=== PATIENT | female | born 1970 | race Caucasian/White ===

== ENCOUNTER 2025-01-02 16:10 | Emergency (ER) | payer SELFPAY ==
--- OUTSIDE RECORDS SUMMARY | 2024-12-31 04:20 | XMS_ITS ---
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 tree, grass) shortness of breath Allergy Active vancomycin Vancomycin hives Drug Allergy Activ e REASON FOR VISIT WRU Medications Medication SIG (Take, Route, Frequency, Duration) Notes Start Date End Date Status Potassium Chloride Mignon ER 20 MEQ 1 tablet with food Orally Once a day Active Ipratropium-Albuterol 0.5-2.5 (3) MG/3ML 3 mL as needed Inhalation every 6 hrs Active Folic Acid 1 MG 1 tablet Orally Once a day Active Multi Vitamin - 1 tablet Orally Once a day; Duration: 30 days 12/31/2024 Active Melatonin 5 MG 1 tablet at bedtime as needed Orally Once a day; Duration: 30 days 12/31/2024 Active Vitamin D3 25 MCG (1000 UT) 1 capsule Or ally Once a day Active Docusate Sodium 100 MG 1 tablet as neede d Orally Once a day Active Furosemide 40 MG 1 tablet Orally Once a day Active Atorvastatin Calcium 40 MG 1 tablet Oral ly Once a day Active Escitalopram Oxalate 10 MG 1 tablet Oral ly Once a day; Duration: 30 days Active Keppra 500 MG 1 tablet Orally twic e a day Active Valsartan 80 MG 1 tablet Orally Once a day Active Montelukast Sodium 10 MG 1 tablet Orally Once a day Active Levothyroxine Sodium 100 MCG 1 capsule i n the morning on an empty stomach Orally Once a day Active Vitamin B12 1000 MCG 1 tablet Orally Onc e a day Active Budesonide-Formoterol Fumarate 160-4.5 MCG/ACT as directed Inhalation Active Albuterol Sulfate HFA 108 (90 Base) MCG/ACT 1 puff as needed Inhalation every 4 hrs Active Carvedilol 6.25 MG 1 tablet with food Orally Twice a day Active hydrOXYzine Pamoate 25 MG 1-2 capsules O rally every 4 hours as needed for anxiety, agitation, or inability to sleep. Do not give within 4 hours of diphenhydramine.; Duration: 30 days 12/31/2024 Active Calcium Carbonate 1250 (500 Ca) MG 1 tablet with food Orally Twice a day Active Social History Tobacco Use: Social History Observation Description Date Details (start date - stop date) Current Smoker NA - NA Tobacco Control (Standard) Question Answer Notes Tobacco use: Current smoker How often do you smoke cigarettes? Every day How many cigarettes a day do you smoke? 5 or les s Problems Problem Type SNOMED Code ICD Code Onset Dates Problem Status W/U Status Risk Notes Problem Physical examination, complete (99579551) Adult general medical examination (Z00.00) Active confirmed Problem Overweight (006587613) Over weight (E66.3) Active confirmed Problem Alcohol use disorder (6209005791) Alcohol use disorder (F10.99) Active confirmed Vital Signs Weight 201.2 lbs 12/31/2024 Height 63 in 12/31/2024 BMI 35.64 kg/m2 12/31/2024 Blood pressure systolic 132 mm Hg 01/01/20 25 Blood pressure diastolic 80 mm Hg 025 Heart Rate 70 /min 12/31/2024 Oximetry 96 % 12/31/2024 Temperature 98.1 degrees Fahrenheit 01/01/20 25 Respiratory Rate 20 /min 12/31/2024 Encounters Encounter Location Date Provider Diagnosis [facility] [address] [place] [address] 12/31/2024 Hany Elder Adult general medical examination Z00.00 ; Over weight E66.3 and Alcohol use disorder F10.99 Assessments Encounter Date Diagnosis (ICD Code) Assessment Notes Treatment Notes Treatment Clinical Notes Section Notes 12/31/2024 Adult general medical examination (ICD-10 - Z00.00) Admit to the [facility] and initiate standing/protocol orders: The following PRN medications may be self-administered by patients under the supervision of approved staff or administered by nursing staff: Ibuprofen 200mg, 2-4 tablets by mouth (with food) every 6 hours as needed for pain (unless on lithium). (NOTE: Ibuprofen and acetaminophen may be given together, but alternating is recommended for continuous pain relief. Guaifenesin 400 mg, 1 tablet by mouth every four hours as needed for cough and chest congestion (take with large glass of water). Loratadine 10 mg, 1 tablet by mouth daily as needed for allergies, watery itchy eyes, or sinus drainage. Throat Lozenges, up to 4 tablets by mouth every three to four hours as needed for sore throat. Antacid tablets, 1-2 tablets by mouth every one to two hours as needed for indigestion or heart burn. If the client prefers liquid, could use: Liquid Antacid : 1 ounce by mouth up to four times daily as needed for indigestion or heartburn Omeprazole 20mg, 1 capsule by mouth once daily for 14 days for frequent heartburn (frequent heartburn is more than 2 episodes per week). Do not exceed 14 days. Do not give to client already taking a proton-pump inhibitor: esomeprazole (Nexium), lansoprazole (Prevacid), pantoprazole (Protonix), rabeprazole (Aciphex), dexlansoprazole (Dexilant) Zofran ODT disintegrating (under the tongue) 4 mg, 1-2 tablets every 8 hours as needed for nausea/vomiting. Milk of Magnesia (MOM): 1 ounce (30 milliliters) by mouth every day as needed for constipation. OR Miralax: Stir and fully dissolve 17 grams (1 packet or 1 capful to measured line) in any 4 to 8 ounces of beverage then drink once daily for constipation. Do not use for more than 7 days. OR Docusate 100 mg, 1 capsule twice daily as needed for constipation Hydrocortisone 1% Cream, apply topically (to the skin) to the affected area up to three times daily as needed for itching or inflammation (avoid eyes and genitals). 2% Antifungal Cream, apply topically (to the skin) as directed as needed to affected areas for athlete's foot or jock itch. Triple Antibiotic Ointment, apply topically (to the skin) up to three times daily as needed for minor cuts and scrapes. Carmex or Chapstick, apply topically (to the skin) as needed for chapped lips and skin. Orajel, apply to affected areas as needed for mouth or tooth pain. Lubricating Eye Drops, instill 1-2 drops to the affected eye(s) as needed for dry/irritated eye(s). Hemorrhoid medications, apply to affected area according to directions as needed for hemorrhoid discomfort and itch. Nix (Permethrin 1%) cream 2 ounces, apply topically (to the skin) as directed as needed for head lice. Sunscreen 30 SPF, Apply to exposed skin prior to exposure to sun. The following PRN medications must be approved by nursing staff before self-administration by patients: Diphenhydramine 25 mg, 2 tablets by mouth every 4 hours as needed for allergic reaction or itchy rash. Caution: Do not use hydroxyzine within 4 hours of diphenhydramine and vice versa. Loperamide 2 mg capsules, may give two capsules by mouth for the initial dose, followed by one capsule up to 3 times a day as needed for diarrhea. Acetaminophen 500 mg, 1 - 2 tablets by mouth every six hours as needed for pain. (NOTE: Ibuprofen and acetaminophen may be given together, but alternating is recommended for continuous pain relief). Oxygen-May administer oxygen 2L/min via nasal cannula if O2 saturation is less than 92%, AND client complains of shortness of breath. Target O2 saturation is 94-98%. Caution: Remember too much oxygen can be detrimental to a client with COPD. Oxygen is a drug and should be delivered by trained staff only. Nurses may remove superficial splinters and sutures from skin lacerations. May apply gauze or bandages to any weeping wounds. Contact nursing if there is pus, a foul odor, increased pain/redness/swelli ng, or if soaking through bandages. 12/31/2024 Over weight (ICD-10 - E66.3) 12/31/2024 Alcohol use disorder (ICD-10 - F10.99) 12/31/2024 Other Continue treatment as recommended by [facility] staff. Encouraged patient to obtain routine medical care with patient's own primary care provider or establish as a patient at [facility] if no current primary care provider. Plan Of Treatment Medication Medication Name Sig Start Date Stop Date Notes Potassium Chloride Mignon ER 2 0 MEQ 1 tablet with food Orally Once a day Ipratropium-Albuterol 0.5-2. 5 (3) MG/3ML 3 mL as needed Inhalation every 6 hrs Folic Acid 1 MG 1 tablet Orally Once a day Multi Vitamin - 1 tablet Orally Once a day; Duration: 30 days 12/31/2024 Melatonin 5 MG 1 tablet at bedtime as needed Orally Once a day; Duration: 30 days 12/31/2024 Vitamin D3 25 MCG (1000 UT) 1 capsule Orally Once a day Docusate Sodium 100 MG 1 tablet as neede d Orally Once a day Furosemide 40 MG 1 tablet Orally Once a day Atorvastatin Calcium 40 MG 1 tablet Orally Once a day Escitalopram Oxalate 10 MG 1 tablet Oral ly Once a day; Duration: 30 days Keppra 500 MG 1 tablet Orally twice a day Valsartan 80 MG 1 tablet Orally Once a day Montelukast Sodium 10 MG 1 tablet Orally Once a day Levothyroxine Sodium 100 MCG 1 capsule i n the morning on an empty stomach Orally Once a day Vitamin B12 1000 MCG 1 tablet Orally Once a day Budesonide-Formoterol Fumara te 160-4.5 MCG/ACT as directed Inhalation Albuterol Sulfate HFA 108 (9 0 Base) MCG/ACT 1 puff as needed Inhalation every 4 hrs Carvedilol 6.25 MG 1 tablet with food O rally Twice a day hydrOXYzine Pamoate 25 MG 1-2 capsules O rally every 4 hours as needed for anxiety, agitation, or inability to sleep. Do not give within 4 hours of diphenhydramine.; Duration: 30 days 12/31/2024 Calcium Carbonate 1250 (500 Ca) MG 1 tablet with food Orally Twice a day Treatment Notes Assessment Notes Adult general medical examination Admit to the [facility] and initiate standing/protocol orders: The following PRN medications may be self-administered by patients under the supervision of approved staff or administered by nursing staff: Ibuprofen 200mg, 2-4 tablets by mouth (with food) every 6 hours as needed for pain (unless on lithium). (NOTE: Ibuprofen and acetaminophen may be given together, but alternating is recommended for continuous pain relief. Guaifenesin 400 mg, 1 tablet by mouth every four hours as needed for cough and chest congestion (take with large glass of water). Loratadine 10 mg, 1 tablet by mouth daily as needed for allergies, watery itchy eyes, or sinus drainage. Throat Lozenges, up to 4 tablets by mouth every three to four hours as needed for sore throat. Antacid tablets, 1-2 tablets by mouth every one to two hours as needed for indigestion or heart burn. If the client prefers liquid, could use: Liquid Antacid : 1 ounce by mouth up to four times daily as needed for indigestion or heartburn Omeprazole 20mg, 1 capsule by mouth once daily for 14 days for frequent heartburn (frequent heartburn is more than 2 episodes per week). Do not exceed 14 days. Do not give to client already taking a proton-pump inhibitor: esomeprazole (Nexium), lansoprazole (Prevacid), pantoprazole (Protonix), rabeprazole (Aciphex), dexlansoprazole (Dexilant) Zofran ODT disintegrating (under the tongue) 4 mg, 1-2 tablets every 8 hours as needed for nausea/vomiting. Milk of Magnesia (MOM): 1 ounce (30 milliliters) by mouth every day as needed for constipation. OR Miralax: Stir and fully dissolve 17 grams (1 packet or 1 capful to measured line) in any 4 to 8 ounces of beverage then drink once daily for constipation. Do not use for more than 7 days. OR Docusate 100 mg, 1 capsule twice daily as needed for constipation Hydrocortisone 1% Cream, apply topically (to the skin) to the affected area up to three times daily as needed for itching or inflammation (avoid eyes and genitals). 2% Antifungal Cream, apply topically (to the skin) as directed as needed to affected areas for athlete's foot or jock itch. Triple Antibiotic Ointment, apply topically (to the skin) up to three times daily as needed for minor cuts and scrapes. Carmex or Chapstick, apply topically (to the skin) as needed for chapped lips and skin. Orajel, apply to affected areas as needed for mouth or tooth pain. Lubricating Eye Drops, instill 1-2 drops to the affected eye(s) as needed for dry/irritated eye(s). Hemorrhoid medications, apply to affected area according to directions as needed for hemorrhoid discomfort and itch. Nix (Permethrin 1%) cream 2 ounces, apply topically (to the skin) as directed as needed for head lice. Sunscreen 30 SPF, Apply to exposed skin prior to exposure to sun. The following PRN medications must be approved by nursing staff before self-administration by patients: Diphenhydramine 25 mg, 2 tablets by mouth every 4 hours as needed for allergic reaction or itchy rash. Caution: Do not use hydroxyzine within 4 hours of diphenhydramine and vice versa. Loperamide 2 mg capsules, may give two capsules by mouth for the initial dose, followed by one capsule up to 3 times a day as needed for diarrhea. Acetaminophen 500 mg, 1 - 2 tablets by mouth every six hours as needed for pain. (NOTE: Ibuprofen and acetaminophen may be given together, but alternating is recommended for continuous pain relief). Oxygen-May administer oxygen 2L/min via nasal cannula if O2 saturation is less than 92%, AND client complains of shortness of breath. Target O2 saturation is 94-98%. Caution: Remember too much oxygen can be detrimental to a client with COPD. Oxygen is a drug and should be delivered by trained staff only. Nurses may remove superficial splinters and sutures from skin lacerations. May apply gauze or bandages to any weeping wounds. Contact nursing if there is pus, a foul odor, increased pain/redness/swelling, or if soaking through bandages. Other Continue treatment as recommended by [facility] staff. Encouraged patient to obtain routine medical care with patient's own primary care provider or establish as a patient at [facility] if no current primary care provider. Future Test Test Name Order Date CBC With Differential/Platelet* 01/01/20 25 CMP 14 Comprehensive Metabolic Panel* QuantiFERON-TB Gold Plus ([id number]) 2024 Next Appt Details Follow Up: prn, Reason: Provider Name:Hany zelaya, 01/03/2025 10:40:00 AM, [address], [place], [address], Provider Name:Hany zelaya, 01/06/2025 11:00:00 AM, [address], [place], [address], Progress Notes * BRYN, LewB:1970 (54 yo F)Acc No.[id number]:12/31/2024 UNLOCKED PROGRESS NOTE Patient: Radha DIOR Provider: Mar Eledr APN :1970 A ge:54 Y S ex:Female Date:12/31/2024 Address:[address] [place], [place] [id number] Pcp:Tiny Navarro Check In:09:08 AM 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 WRU. * HPI: S ummary: Presents for physical as patient is admitted to Residential Unit at [facility]. 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 CHF, hypothyroidism, COPD, asthma, HLD, epilepsy (on keppra, last seizure 3 years ago) Recent Hospitalizations: [facility] mem from 12/24-12/31 for CHF exac. and sepsis due to ETOH use PCP: was Kanchan Styles in [facility], was dropped due to too many hosp visits Psych provider: denies Drug/ETOH use: ETOH (1-2 pints daily) Last time used: 12/24 Route: oral Previous Tx: denies Withdrawal s/s: denies Cigarette/vaping use: 2-3 cigs per day, does not want nicotine replacement Sexual activity: denies Denies SI/HI Patient states she is self-sufficient at home, uses a scrub brush in the shower and uses grabbers to help with not bending over. P [facility] follow-up: Action Plans for Clinical Quality Measures: A dult BMI and follow-up: O ther (see notes). provider to discuss with patient, B reast Cancer Screening: Discussed need for breast cancer screening. Patient declined., C ervical Cancer Screening:?Discussed need for cervical cancer screening. Patient declined., C olorectal Cancer Screening: D iscussed need for colorectal cancer screening. Patient declined., H IV Screening: D iscussed need for HIV screening. Patient declined., T obacco Screening and Cessation: O ther (see notes). provider to discuss with patient. . D epression Screening: PHQ-9 L ittle interest or pleasure in doing things N ot at all, F eeling down, depressed, or hopeless N ot at all, F eeling tired or having little energy N ot at all, P oor appetite or overeating N ot at all, F eeling bad about yourself or that you are a failure, or have let yourself or your family down N ot at all, T rouble concentrating on things, such as reading the newspaper or watching television N ot at all, M oving or speaking so slowly that other people could have noticed; or the opposite, being so fidgety or restless that you have been moving around a lot more than usual N ot at all, T houghts that you would be better off or of hurting yourself in some way N ot at all. I ntervention D epression Screening Findings P ositive, F ollow-Up for Depression P kamlesh is admitted to a [facility] unit where their mental health is monitored - unit nursing staff have access to this encounter note. C SSRS Interpretation and Follow Up Plan: CSSRS Interpretation and Follow Up Plan C SSRS Screen documented using SF Y es, R isk Disposition from SF L ow - No Follow Up Plan Required, F ollow Up Plan N o Follow Up Plan required at this time., T imeframe of Screening T shane.? S creening: [place] Suicide Severity Rating Scale (LF) D o you want to initiate with S creener form, 1 . Wish to be : Have you wished you were or wished you could go to sleep and not wake up? N o, 2 . Suicidal Thoughts: Have you actually had any thoughts of killing yourself? N o, 6 . Suicide Behavior Question: Have you ever done anything,started to do anything, or prepared to end your life? N o, I nterpretation: L ow Risk. * ROS: B asic ROS: Denies S eizures. D enies S uicidal Thoughts. ? P sych ROS: Constitutional D enies. E yes D enies. E ars/Nose/Mouth/Throat D enies. R espiratory R eports, h x of ,Asthma and,COPD. C ardiovascular D enies. G I R eports, h x of perf bowel and has LLQ colostomy.. G U D enies. M usculoskeletal D enies. N eurological D enies. I ntegumentary D enies. H ematological/Lymphatic D enies. * Medical History: H TN, Hypothyroidism, Seizures, COPD, Asthma, CHF, High Cholesterol, Anxiety with Depression, Fatty liver, Ostomy, Impaired mobility-uses walker. * Surgical History: O stomy 2024, Perforated Bowel 2024. * Hospitalization/Major Diagno stic Procedure: O stomy-[facility] 2024. * Family History: F ather: . M other: . 3 brother(s) . 2 son(s) , 3 daughter(s) . .? * Social History: P rimary Social History: L iving Arrangement L iving Arrangement: D ependent Living, L iving with: Óscar clancy, I s this a supportive environment? Y es. A lcohol Use A lcohol Use Frequency: Weekly or Daily, T ype of alcohol consumed L iquor, Beer, Q uanity consumed on those occasions 3 or more glasses, Q uanity consumed on those occasions 3 -6. I llicit Substance Usage I llicit Substance Usage: N o. E mployment Status E mployment Status: On Disability. S eloisa Question Alcohol Screening H ow many times in the past year have you had (4 for women, or 5 for men) or more drinks in a day? 1 0. T obacco Use: T obacco Control (Standard) T obacco use: C urrent smoker, H ow often do you smoke cigarettes? E very day, H ow many cigarettes a day do you smoke? 5 or less. * Medications: T aking Vitamin D3 25 MCG (1000 UT) Capsule 1 capsule Orally Once a day , Taking Potassium Chloride Mignon ER 20 MEQ Tablet Extended Release 1 tablet with food Orally Once a day , Taking Ipratropium-Albuterol 0.5-2.5 (3) MG/3ML Solution 3 mL as needed Inhalation every 6 hrs , Taking Folic Acid 1 MG Tablet 1 tablet Orally Once a day , Taking Escitalopram Oxalate 10 MG Tablet 1 tablet Orally Once a day , Taking Carvedilol 6.25 MG Tablet 1 tablet with food Orally Twice a day , Taking Calcium Carbonate 1250 (500 Ca) MG Tablet 1 tablet with food Orally Twice a day , Taking Budesonide-Formoterol Fumarate 160-4.5 MCG/ACT Aerosol as directed Inhalation , Taking Albuterol Sulfate HFA 108 (90 Base) MCG/ACT Aerosol Solution 1 puff as needed Inhalation every 4 hrs , Taking Keppra 500 MG Tablet 1 tablet Orally twice a day , Taking Valsartan 80 MG Tablet 1 tablet Orally Once a day , Taking Montelukast Sodium 10 MG Tablet 1 tablet Orally Once a day , Taking Levothyroxine Sodium 100 MCG Capsule 1 capsule in the morning on an empty stomach Orally Once a day , Taking Vitamin B12 1000 MCG Tablet 1 tablet Orally Once a day , Taking Docusate Sodium 100 MG Tablet 1 tablet as needed Orally Once a day , Taking Furosemide 40 MG Tablet 1 tablet Orally Once a day , Taking Atorvastatin Calcium 40 MG Tablet 1 tablet Orally Once a day , Medication List reviewed and reconciled with the patient * Allergies: V ancomycin: hives, Latex: hives, Pollen (e.g. tree, grass): shortness of breath, [place] Flavor: hives. Objective: * Vitals: I nitials: HM, Wt:201.2, Ht: 63, BMI:35.64, BP:132/80, HR:70, Oxygen sat %:96, Temp:98.1, RR:20, Pain scale:7. * Examination: G eneral Examination: GENERAL APPEARANCE: alert, in no acute distress. HEAD: normocephalic, atraumatic. EYES: BOTH EYES, sclera anicteric, pupils equal, round, reactive to light and accommodation , extraocular movement intact (EOMI). EARS BOTH EARS, normal. NOSE: nares patent. ORAL CAVITY: m ucosa moist, edentulous, dentures upper only.. THROAT: pharynx normal. NECK/THYROID: neck supple , no thyromegaly. SKIN: w arm and dry, no rashes, no suspicious lesions. LLQ colostomy, pink, moist.. HEART: regular rate and rhythm, S1, S2 normal, no S3, S4, no murmurs, rubs, gallops. LUNGS: respirations regular and easy, clear to auscultation bilaterally, no wheezes, rales, rhonchi, clear anteriorly and posteriorly, good air movement.? ABDOMEN: bowel sounds present, soft, nontender, nondistended, no masses palpable, no organomegaly . EXTREMITIES: no edema. PERIPHERAL PULSES: 2+ throughout. NEUROLOGIC: nonfocal, gait normal. PSYCH: appropriate affect. Assessment: * Assessment: 1. O danielle weight - E66.3 2 . A dult general medical examination - Z00.00 (Primary) 3 . A lcohol use disorder - F10.99 Plan: * Treatment: Value Reference Range B AC 0.000 ?LAB: QuantiFERON-TB Gold Plus ([id number]) (Ordered for 12/31/2024) ?LAB: CMP 14 Comprehensive Metabolic Panel* (Ordered for 12/31/2024) ?LAB: CBC With Differential/Platelet* (Ordered for 12/31/2024) ?LAB: 14 Panel Urine Drug Screen (Ordered for 12/31/2024) (Collection Date & Time - 12/31/2024)* Value Reference Range T HC neg * C OC neg * M OP (OPI) neg * A MP neg * M ET neg * B AR neg * B ZO pos * M DMA neg * M TD neg * O XY neg * P CP neg * B UP neg * T CA neg * F TY neg Notes: Admit to the [facility]idential Unit and initiate standing/protocol orders: The following PRN medications may be self-administered by patients under the supervision of approved staff or administered by nursing staff: * Ibuprofen 200mg, 2-4 tablets by mouth (with food) every 6 hours as needed for pain (unless on lithium). (NOTE: Ibuprofen and acetaminophen may be given together, but alternating is recommended for continuous pain relief. * Guaifenesin 400 mg, 1 tablet by mouth every four hours as needed for cough and chest congestion (take with large glass of water). * Loratadine 10 mg, 1 tablet by mouth daily as needed for allergies, watery itchy eyes, or sinus drainage. * Throat Lozenges, up to 4 tablets by mouth every three to four hours as needed for sore throat. * Antacid tablets, 1-2 tablets by mouth every one to two hours as needed for indigestion or heart burn. If the client prefers liquid, could use: Liquid Antacid : 1 ounce by mouth up to four times dailyas needed for indigestion or heartburn * Omeprazole 20mg, 1 capsule by mouth once daily for 14 days for frequent heartburn (frequent heartburn is more than 2 episodes per week). Do not exceed 14 days. Do not * give to client already taking a proton-pump inhibitor: esomeprazole (Nexium), lansoprazole (Prevacid), pantoprazole (Protonix), rabeprazole (Aciphex), dexlansoprazole (Dexilant) * Zofran ODT disintegrating (under the tongue) 4 mg, 1-2 tablets every 8 hours as needed for nausea/vomiting. * Milk of Magnesia (MOM): 1 ounce (30 milliliters) by mouth every day as needed for constipation.ORMiralax: Stir and fully dissolve 17 grams (1 packet or 1 capful to measured line) in any 4 to 8 ounces of beverage then drink once daily for constipation. Do not use for more than 7 days.ORDocusate 100 mg, 1 capsule twice daily as needed for constipation * Hydrocortisone 1% Cream, apply topically (to the skin) to the affected area up to three times dailyas needed for itching or inflammation (avoid eyes and genitals). * 2% Antifungal Cream, apply topically (to the skin) as directed as needed to affected areas for athlete's foot or jock itch. * Triple Antibiotic Ointment, apply topically (to the skin) up to three times daily as needed for minor cuts and scrapes. * Carmex or Chapstick, apply topically (to the skin) as needed for chapped lips and skin. * Orajel, apply to affected areas as needed for mouth or tooth pain. * Lubricating Eye Drops, instill 1-2 drops to the affected eye(s) as needed for dry/irritated eye(s). * Hemorrhoid medications, apply to affected area according to directions as needed for hemorrhoid discomfort and itch. * Nix (Permethrin 1%) cream 2 ounces, apply topically (to the skin) as directed as needed for head lice. * Sunscreen 30 SPF, Apply to exposed skin prior to exposure to sun. The following PRN medications must be approved by nursing staff before self- administration by patients: * Diphenhydramine 25 mg, 2 tablets by mouth every 4 hours as needed for allergic reaction or itchy rash.Caution: Do not use hydroxyzine within 4 hours of diphenhydramine and vice versa. * Loperamide 2 mg capsules, may give two capsules by mouth for the initial dose, followed by one capsule up to 3 times a day as needed for diarrhea. * Acetaminophen 500 mg, 1 - 2 tablets by mouth every six hours as needed for pain. (NOTE: Ibuprofen and acetaminophen may be given together, but alternating is recommended for continuous pain relief). * Oxygen-May administer oxygen 2L/min via nasal cannula if O2 saturation is less than 92%, AND clientcomplains of shortness of breath. Target O2 saturation is 94-98%.Caution: Remember too much oxygen can be detrimental to a client with COPD. Oxygen is a drug and should be delivered by trained staff only. Nurses may remove superficial splinters and sutures from skin lacerations. May apply gauze or bandages to any weeping wounds. Contact nursing if there is pus, a foul odor, increased pain/redness/swelling, or if soaking through bandages. ??2.?Others? Notes:Continue treatment as recommended by [facility] staff.Encouraged patient to obtain routine medical care with patient's own primary care provider or establish as a patient at [facility] if no current primary care provider.?? * Recommended Wellness and Pre vention Guidelines: * S tatus A porsha L ast Done N ext Due A ction Taken N ONCOMPLIANT A lcohol use screening - 1 - - N ONCOMPLIANT A llergy List Verification - 1 - - N ONCOMPLIANT B reast cancer screening - 1 - - N ONCOMPLIANT C ervical cancer screening - 1 - - N ONCOMPLIANT C holesterol screen (genl pop) - 1 - - N ONCOMPLIANT C olorectal cancer screening - 1 - - N ONCOMPLIANT D epression screening - 1 - - N ONCOMPLIANT H IV screening - 1 - - N ONCOMPLIANT I nfluenza vaccine (over 50) - 1 - - N ONCOMPLIANT S moking status - 1 - - * Procedure Codes: 3 008F BODY MASS INDEX DOCD, G0466 [facility] VISIT NEW PATIENT, 1036F TOBACCO NON-USER * Preventive Medicine: Counseling: S MOKING: P atient counselled on the dangers of tobacco use and urged to quit. 1 .. C are goal follow-up plan: B TX management provided Y es,?Above Normal BMI Follow-up L afshinyle education regarding diet. * Follow Up: p rn * * Electronic signature of Javier Elder on 01/02/2025 at 04:58 PM CDT Sign off status: Pending * Provider: Mar Elder APN Date: Generated for Sascha barros/Norman/Sheila on: 1 04:58 PM CDT History and Physical Notes * HPI (History of Present Illness) Category Sub-Category Detail Notes Category Not es Depression Screening PHQ-9 Little inte rest or pleasure in doing things: Not at all Feeling down, depressed, or hopeless: No t at all Feeling tired or having little energy: N ot at all Poor appetite or overeating: Not at all Feeling bad about yourself o r that you are a failure, or have let yourself or your family down: Not at all Trouble concentrating on thi ngs, such as reading the newspaper or watching television: Not at all Moving or speaking so slowly that other people could have noticed; or the opposite, being so fidgety or restless that you have been moving around a lot more than usual: Not at all Thoughts that you would be b debbie off or of hurting yourself in some way: Not at all Intervention Depression Screening Findings: P ositive Follow-Up for Depression: Rashid lozoya is admitted to a [facility] residential unit where their mental health is monitored - unit nursing staff have access to this encounter note Summary Presents for physical as patient is admitted to Residential Unit at [facility]. 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 CHF, hypothyroidism, COPD, asthma, HLD, epilepsy (on keppra, last seizure 3 years ago) Recent Hospitalizations: mem from 12/24-12/31 for CHF exac. and sepsis due to ETOH use PCP: was Kanchan Styles in [place], was dropped due to too many hosp visits Psych provider: denies Drug/ETOH use: ETOH (1-2 pints daily) Last time used: 12/24 Route: oral Previous Tx: denies Withdrawal s/s: denies Cigarette/vaping use: 2-3 cigs per day, does not want nicotine replacement Sexual activity: denies Denies SI/HI Patient states she is self-sufficient at home, uses a scrub brush in the shower and uses grabbers to help with not bending over. Screening [place] Suicide Severity Rating Scale (LF) Do you want to initiate with: Screener form 1. Wish to be : Have you wished you were or wished you could go to sleep and not wake up?: No 2. Suicidal Thoughts: Have you actually had any thoughts of killing yourself?: No 6. Suicide Behavior Question: Have you ever done anything,started to do anything, or prepared to end your life?: No Interpretation:: Low Risk Preventative Health and Wellness follow-up Action Plans for Clinical Quality Measures: Adult BMI and follow-up:: Other (see notes). provider to discuss with patient . Breast Cancer Screening:: Di scussed need for breast cancer screening. Patient declined. Cervical Cancer Screening:: Discussed need for cervical cancer screening. Patient declined. Colorectal Cancer Screening: : Discussed need for colorectal cancer screening. Patient declined. HIV Screening:: Discussed ne ed for HIV screening. Patient declined. Tobacco Screening and Cessation:: Other (see notes). provider to discuss with patient CSSRS Interpretation and Follow Up Plan CSSRS Interpretation and Follow Up Plan CSSRS Screen documented using SF: Yes Risk Disposition from SF: Low - No Follo w Up Plan Required Follow Up Plan: No Follow Up Plan requir ed at this time. Timeframe of Screening: Today Examination Category Sub-Category Detail Notes Category Not es General Examination GENERAL APPEARANCE: alert, in no a cute distress HEAD: normocephalic, atrau matic EYES: BOTH EYES, sclera an icteric, pupils equal, round, reactive to light and accommodation , extraocular movement intact (EOMI) EARS BOTH EARS, normal NOSE: nares patent THROAT: pharynx normal NECK/THYROID: neck supple , no thy romegaly HEART: regular rate and rhy thm, S1, S2 normal, no S3, S4, no murmurs, rubs, gallops LUNGS: respirations regular and easy, clear to auscultation bilaterally, no wheezes, rales, rhonchi, clear anteriorly and posteriorly, good air movement ABDOMEN: bowel sounds present , soft, nontender, nondistended, no masses palpable, no organomegaly NEUROLOGIC: nonfocal, gait avinash l SKIN: warm and dry, no constance hes, no suspicious lesions. LLQ colostomy, pink, moist. EXTREMITIES: no edema PERIPHERAL PULSES: 2+ throughout PSYCH: appropriate affect ORAL CAVITY: mucosa moist, edentu lous, dentures upper only.
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
--- OUTSIDE RECORDS SUMMARY | 2025-01-01 03:00 | XMS_ITS ---
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 [facility]. Parent or Guardian also verbally authorizes [facility] to bill for these services.: 01/01/2025 Depression Screening PHQ-9 Little inte rest or pleasure in doing things: Several days Feeling down, depressed, or hopeless: No t at all Trouble falling or staying asleep, or sl eeping too much: Several days Feeling tired or having little energy: S everal days Poor appetite or overeating: Several day s Feeling bad about yourself o r that you are a failure, or have let yourself or your family down: Not at all Trouble concentrating on thi ngs, such as reading the newspaper or watching television: Several days Moving or speaking so slowly that other people could have noticed; or the opposite, being so fidgety or restless that you have been moving around a lot more than usual: Several days Thoughts that you would be b debbie off or of hurting yourself in some way: Not at all Total Score: 6 Interpretation: Mild Depression EFFIE-7 Screening 1. Feeling nervous, anxious, or on edg e :, Several days-1 2. Not being able to stop or control wor rying :, Not at all-0 3. Worrying too much about different thi ngs :, Several days-1 4. Trouble sleeping/relaxing :, Several days-1 5. Being so restless that it is hard to sit still :, Not at all-0 6. Becoming easily annoyed or irritable :, Not at all-0 7. Feeling afraid, as if something awful might happen :, Several days-1 Screening [place] Suicide Sev erity Rating Scale (LF) Do [...] end your life?: No Interpretation:: Low Risk Mood Disorder Questionnaire 09-01-21 Questions Please answer each question to the best of your ability.: Has there ever been a time period when you were not your usual self and... You felt so good or hyper th at other people thought you were not your normal self or you were so hyper that you got into trouble?: No . You were so irritable that y ou shouted at people or started fights or arguments?: No . You got much less sleep than usual and found that you didn't really miss it?: No . You felt much more self-confident than u sual?: No . You were more talkative or spoke much fa ster than usual?: No . Thoughts raced through your head or you couldn't slow your mind down?: Yes . You were so easily distracte d by things around you that you had trouble concentrating or staying on track?: Yes . You had more energy than usual?: No . You were more active or did many more th ings than usual?: No . You were more social or outg oing than usual, for example, you telephoned friends in the middle of the night?: No . You were more interested in sex than usu al?: No . You did things that were usu al for you or that other people might have thought were excessive, foolish, or risky?: No . Spending money got you or your family in trouble?: No . If you checked YES to more t enrique one of the above, have several of these ever happened during the same period of time?: No . How much of a problem did an y of these cause you - like being unable to work; having family, money or legal troubles; getting into arguments or fights?: No problems . CSSRS Interpretation and Follow Up Plan CSSRS Interpretation and Follow Up Plan CSSRS Screen documented using SF: Yes Risk Disposition from SF: Low - No Follo w Up Plan Required Follow Up Plan: No Follow Up Plan requir ed at this time. Timeframe of Screening: Today Examination Category Sub-Category Detail Notes Category Not es Mental Status Exam SENSORIUM AND COGNITION A&Ox4 ATTENTION AND CONCENTRATION No deficits APPEARANCE Appropriate ATTITUDE AND BEHAVIOR Cooperative, Pleas ant EYE CONTACT Good AFFECT Congruent with repor corwin mood MOOD Euthymic SPEECH QUANTITY Appropriate SPEECH QUALITY Fluent, Appropriate volume THOUGHT PROCESS Coherent and goal di rected THOUGHT CONTENT Appropriate - WNL MOTOR ACTIVITY [employer]oom, unable to asse ss SUICIDAL IDEATION Denies suicidal idea tion HOMICIDAL IDEATION Denies homicidal agustin ation HALLUCINATIONS Denies hallucination s INSIGHT Fair JUDGMENT Fair FUND OF KNOWLEDGE Fair LANGUAGE Appropriate- WNL DEPRESSIVE SYMPTOMS Denies ELEVATED MOOD SYMPTOMS Denies, Not noted /observed ANXIETY Manageable Consultation Request Notes Referral Date Referring Provider Referred Provider Not es 01/01/2025 Trang Delaney , Patient is cu rrently on [facility], would like to start individual therapy, EMDR would be great if possible, thanks!
[2025-01-02] VITALS (19 sets, daily range): BP systolic 117–139; BP diastolic 64–87; PULSE 77–88; RESP 13–19; TEMP 36.6; O2SAT 92–98
--- NOTE | ~2025-01-02 | XR_ITS ---
EXAMINATION: XR knee LT min 4V, 01/02/2025 17:06 CDT HISTORY: fall COMPARISON: No comparisons available. Findings: No acute fracture or malalignment. No significant degenerative changes. Soft tissues unremarkable. Impression: No acute fracture or malalignment. Reviewed, dictated and finalized at location P. Impression: No acute fracture or malalignment.
--- NOTE | ~2025-01-02 | CT_ITS ---
CT hip LT wo con INDICATION:possible fx COMPARISON: None. TECHNIQUE: Noncontrast axial CT images of the were obtained followed by multiplanar reconstruction in the coronal and sagittal planes. FINDINGS: There is severe degenerative changes of the left hip joint with loss of joint space. There is fracture of the femoral head without collapse of the femoral head and may represent advanced avascular necrosis. Moderate size joint effusion is noted. There is no dislocation. IMPRESSION: There is comminuted fracture of the femoral head with collapse of the head. There is associated sclerosis. This may be sequelae of advanced avascular necrosis. There is no dislocation. Large joint effusion is noted. All CT scans at this facility are performed using low dose modulation techniques as appropriate to perform exam including the following: automated exposure control; use of iterative reconstruction technique; adjustment of the mA and/or kV according to patient size (this includes techniques or standardized protocols for targeted exams where dose is matched to indication/reason for exam). Reviewed, dictated and finalized at location S. IMPRESSION: There is comminuted fracture of the femoral head with collapse of the head. The re is associated sclerosis. This may be sequelae of advanced avascular necrosis . There is no dislocation. Large joint effusion is noted. All CT scans at this facility are performed using low dose modulation techniqu es as appropriate to perform exam including the following: automated exposure c ontrol; use of iterative reconstruction technique; adjustment of the mA and/or kV according to patient size (this includes techniques or standardized protocol s for targeted exams where dose is matched to indication/reason for exam).
--- NOTE | ~2025-01-02 | XR_ITS ---
EXAMINATION: XR hip LT 2V w AP pelvis, 01/02/2025 17:06 CDT HISTORY: fall COMPARISON: No comparisons available. Findings: No acute fracture or malalignment. Severe degenerative changes with deformity of the left femoral head suspicious for avascular necrosis Soft tissues unremarkable. Impression: No acute fracture or malalignment. Reviewed, dictated and finalized at location P. Impression: No acute fracture or malalignment.
--- OUTSIDE RECORDS SUMMARY | 2025-01-02 05:40 | XMS_ITS ---
Author Organization [facility] Address [address] [place] [address] Care Team Providers Care Elderly Caregiver Name Role Phone MelanieTimoTiny Primary Care Provider [phone] Nain Benitez [phone] Allergies Allergen (clinical drug ingredient) Drug/Non Drug Allergy documented on EMR Reaction Allergy Type Onset Date Status [place] Flavor hives Drug Allergy Active Latex Latex hives Allergy Active Pollen (e.g. tree, grass) shortness of breath Allergy Active vancomycin Vancomycin hives Drug Allergy Activ e REASON FOR VISIT WRU MAR Medications Medication SIG (Take, Route, Frequency, Duration) Notes Start Date End Date Status Atorvastatin Calcium 40 MG 1 tablet Orally Once a day Active Escitalopram Oxalate 10 MG 1 tablet Oral ly Once a day; Duration: 30 days Active hydrOXYzine Pamoate 25 MG 1-2 capsules O rally every 4 hours as needed for anxiety, agitation, or inability to sleep. Do not give within 4 hours of diphenhydramine. 12/31/2024 Active Vivitrol 380 MG as directed Intramus cular every 28 days; Duration: 28 days 01/02/2025 Active Melatonin 5 MG 1 tablet at bedtime as needed Orally Once a day 12/31/2024 Active Docusate Sodium 100 MG 1 tablet as neede d Orally Once a day Active Levothyroxine Sodium 100 MCG 1 capsule in the morning on an empty stomach Orally Once a day Active Vitamin B12 1000 MCG 1 tablet Orally Once a day Active Furosemide 40 MG 1 tablet Orally Once a day Active Montelukast Sodium 10 MG 1 tablet Orally Once a day Active Calcium Carbonate 1250 (500 Ca) MG 1 tablet with food Orally Twice a day Active Budesonide-Formoterol Fumarate 160-4.5 MCG/ACT as directed Inhalation Active Valsartan 80 MG 1 tablet Orally Once a day Active Albuterol Sulfate HFA 108 (90 Base) MCG/ACT 1 puff as needed Inhalation every 4 hrs Active Keppra 500 MG 1 tablet Orally twic e a day Active Ipratropium-Albuterol 0.5-2.5 (3) MG/3ML 3 mL as needed Inhalation every 6 hrs Active Folic Acid 1 MG 1 tablet Orally Once a day Active Naltrexone HCl 50 MG 1/2 tablet Orally o nce; Duration: 1 days 01/02/2025 Active Potassium Chloride Mignon ER 20 MEQ 1 tablet with food Orally Once a day Active Carvedilol 6.25 MG 1 tablet with food O rally Twice a day Active Vitamin D3 25 MCG (1000 UT) 1 capsule Orally Once a day Active Multi Vitamin - 1 tablet Orally Once a day; Duration: 30 days 12/31/2024 Active Social History Tobacco Use: Social History [...] 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 Stress is when someone feels tense, nervous, anxious, or can\t sleep at night because their mind is troubled Not at all In the past year have you sp ent more than 2 nights in a row in a senior care, long term, nursing home center, or juvenile correctional facility? No Are [...] do you smoke? 5 or les s Section Notes: Residential program: Staying for 28 days Living situation: Recently moved to [facility] Alcohol use: Drinking alcohol for 22 years, 1-2 pints a day Problems Problem Type SNOMED Code ICD Code Onset Dates Problem Status W/U Status Risk Notes Problem Obesity (979407799) Obesity (BMI 30-39.9) (E66.9) Active confirmed Problem Tobacco user (421356650) Nicotine dependence with current use (F17.200) Active confirmed Vital Signs Weight 203.4 lbs 01/02/2025 BMI 36.03 kg/m2 01/02/2025 Height 63 in 01/02/2025 Temperature 98.3 degrees Fahrenheit 01/03/20 25 Heart Rate 82 /min 01/02/2025 Oximetry 96 % 01/02/2025 Respiratory Rate 16 /min 01/02/2025 Blood pressure systolic 110 mm Hg 01/03/20 25 Blood pressure diastolic 70 mm Hg 025 Encounters Encounter Location Date Provider Diagnosis [facility] [address] [place] [address] 01/02/2025 Nain Benitez Alcohol use disorder F10.99 ; Obesity (BMI 30-39.9) E66.9 and Nicotine dependence with current use F17.200 Assessments Encounter Date Diagnosis (ICD Code) Assessment Notes Treatment Notes Treatment Clinical Notes Section Notes 01/02/2025 Alcohol use disorder (ICD-10 - F10.99) Discussed medication side effects, adverse effects, risks, benefits, as well as interactions. Encouraged non-use of alcohol. Has Vivitrol alert bracelet, necklace, and wallet card. Recommended participation in recovery groups and/or counseling services. May contact office with questions or concerns. 01/02/2025 Obesity (BMI 30-39.9) (ICD-10 - E66.9) 01/02/2025 Nicotine dependence with current use (ICD-10 - F17.200) 01/02/2025 Other 01/02/25 11:10 AM, Vignesh Vargas RN > Per Antonino Benitez APRN's orders, supervised as pt. self-administered Naltrexone 25mg po. Instructed pt. on Naltrexone and Vivitrol per [employer] module handout. Instructed pt. on adverse side effects to report and common side effects. Gave pt. Vivitrol ID bracelet, necklace, and wallet card and explained what/why it is used. Pt. verbalized understanding of all of the above. Will monitor. 01/02/25 11:25 AM, Vignesh Vargas RN> Pt. denies any adverse side effects from the Naltrexone at this time. Will continue to monitor. 01/02/25 11:40 AM, Vignesh Vargas RN> Pt. continues to deny any adverse side effects to the Naltrexone at this time. Reported this to Antonino Benitez APRN. Per luther, veronica to administer IM Vivitrol. 01/02/25 11:50 AM, Vignesh Vargas RN> Administered Vivitrol 380mg IM into Lt. gluteus. Pt. tolerated well. No questions/concern s at this time. Pt. given a reminder with walk-in clinic hours, phone numbers, and when pt.'s next Vivitrol is due. Pt. verbalized understanding. 01/02/25 12:05 PM, Vignesh Vargas RN > Pt. denies any adverse side effects from Vivitrol injection given. Per Antonino Benitez APRN pt. discharged back to [facility]. Plan Of Treatment Medication Medication Name Sig Start Date Stop Date Notes Vivitrol 380 MG as directed Intramus cular every 28 days; Duration: 28 days 01/02/2025 Naltrexone HCl 50 MG 1/2 tablet Orally o nce; Duration: 1 days 01/02/2025 Treatment Notes Assessment Notes Alcohol use disorder Discussed medication side effects, adverse effects, risks, benefits, as well as interactions. Encouraged non-use of alcohol. Has Vivitrol alert bracelet, necklace, and wallet card. Recommended participation in recovery groups and/or counseling services. May contact office with questions or concerns. Other 01/02/25 11:10 AM, Vignesh Vargas RN > Per Antonino Benitez APRN's orders, supervised as pt. self-administered Naltrexone 25mg po. Instructed pt. on Naltrexone and Vivitrol per [employer] module handout. Instructed pt. on adverse side effects to report and common side effects. Gave pt. Vivitrol ID bracelet, necklace, and wallet card and explained what/why it is used. Pt. verbalized understanding of all of the above. Will monitor. 01/02/25 11:25 AM, Vignesh Vargas RN> Pt. denies any adverse side effects from the Naltrexone at this time. Will continue to monitor. 01/02/25 11:40 AM, Vignesh Vargas RN> Pt. continues to deny any adverse side effects to the Naltrexone at this time. Reported this to Antonino Benitez APRN. Per orders, okay to administer IM Vivitrol. 01/02/25 11:50 AM, Vignesh Vargas RN> Administered Vivitrol 380mg IM into Lt. gluteus. Pt. tolerated well. No questions/concerns at this time. Pt. given a reminder with walk-in clinic hours, phone numbers, and when pt.'s next Vivitrol is due. Pt. verbalized understanding. 01/02/25 12:05 PM, Vignesh Vargas RN > Pt. denies any adverse side effects from Vivitrol injection given. Per Antonino Benitez APRN pt. discharged back to [facility]. Next Appt Details Follow Up: 4 Weeks, Reason: MAR f/u Provider Name:Hany zelaya, 01/03/2025 10:40:00 AM, [address], [place], [address], Provider Name:Hany zelaya, 01/06/2025 11:00:00 AM, [address], [place], [address], Medications Administered Medication Instructions Date of Administration Dosage Notes Vivitrol 01/02/2025 380 mg Niurka Vargas 01/02/2025 11:50 AM CDT >Given IM Lt Gluteus, tolerated well. [facility]# [id number]. 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 T imeframe of Screening T shane P reventative Health and Wellness follow-up: Action Plans for Clinical Quality Measures: B reast Cancer Screening: D iscussed need for breast cancer screening. Patient declined. C ervical Cancer Screening: D iscussed need for cervical cancer screening. Patient declined. C olorectal Cancer Screening: D iscussed need for colorectal cancer screening. Patient declined. H IV Screening: D iscussed need for HIV screening. Patient declined. . I nterim History: Emergency room visit N o. Was hospitalized N o. D epression Screening: PHQ-9 L ittle interest or pleasure in doing things?Several days F eeling down, depressed, or hopeless S everal days T rouble falling or staying asleep, or sleeping too much S everal days F eeling tired or having little energy S everal days P oor appetite or overeating S everal days F eeling bad about yourself or that you are a failure, or have let yourself or your family down N ot at all T rouble concentrating on things, such as reading the newspaper or watching television N ot at all M oving or speaking so slowly that other people could have noticed; or the opposite, being so fidgety or restless that you have been moving around a lot more than usual N ot at all T houghts that you would be better off or of hurting yourself in some way N ot at all T otal Score 5 I nterpretation M ild Depression S creening: [place] Suicide Severity Rating Scale (LF) D o you want to initiate with S creener form 1 . Wish to be : Have you wished you were or wished you could go to sleep and not wake up? N o 2 . Suicidal Thoughts: Have you actually had any thoughts of killing yourself? N o 6 . Suicide Behavior Question: Have you ever done anything,started to do anything, or prepared to end your life? N o I nterpretation: L ow Risk M AR Initial Assessment: Radha Easton, a 54-year-old female, presented to discuss Medication Assisted Recovery. She reported a long history of alcohol use-22 years at 1 to 2 pints of Vodka daily-with her last drink occurring on the , just before admission to [facility] for detox. She expressed uncertainty about medication effects and ongoing cravings for alcohol since entering the residential program. Radha is considering Vivitrol injections and Naltrexone pills as part of her recovery strategy. Substance use history S ubstance Use History, drugs of choice: A lcohol Addiction Treatment History P rior Medications for PÉREZ treatment N one. First time seeking treatment. T herapy/counseling and Recovery support (peers/groups) N o history of therapy/counseling or engagement with recovery support peer/groups. Therapy/counseling and recovery support discussed and encouraged. Referrals placed. History of Infectious Diseases H istory of viral hepatitis N o H istory of HIV N o H istory of TB N o H istory of other infectious diseases N o History of IV drug use and related infections H istory of injection drug use? N o Acute Trauma A cute Trauma N o Psychiatric History H istory of psychiatric diagnoses? Y es (specify) H as a psychiatric provider? Y es. See notes. C onsent obtained for psychiatric provider if outside of [place]? N o. Patient sees [place] psychiatric provider. Primary Care H as a primary care provider? N o I nterested in primary care services at this time? Y es. staff sonographer will coordinate appointment. Assessment and history specific to females F emale/Female at ? Y es P regnancy testing: D oes not have childbearing potential (hysterectomy, post-menopausal, etc). C ontraception: D oes not have childbearing potential (hysterectomy, post-menopausal, etc). Hepatitis A and B vaccination status V accination status Hep A D enies vaccination to Hep A. Vaccination encouraged and resources offered. V accination status, Hep B R eports vaccination for Hep B Housing Stability and Employment I s housing stable/safe? Y es C urrently employed? S ocial Security/disability. Support System: H as a support system: Y es (specify): Narcan Access H as Narcan and has been trained on its use??Not applicable. Prescription Drug Monitoring Program P rescription Drug Monitoring Program reviewed? Y es. No concerns identified. * ROS: B asic ROS: Denies W eight loss or gain. D enies C hange in appetite. I nsomnia D enies. A dmits A nxiety. A dmits D epressed Mood. D enies S uicidal Thoughts. * Medical History: * Surgical History: O stomy 2024Perforated Bowel 2024 * Hospitalization/Major Diagno stic Procedure: O stomy-[facility] 2024Heart failure, fluid overload, sepsis, [place], [place], december 202412/2024Heart failure, fluid overload, sepsis, [facility], december 202412/2024 * Family History: F ather: . M other: . 3 brother(s) - healthy. 2 son(s) , 3 daughter(s) - healthy. . Mother schizophernia. * Social History: P rimary Social History: L iving Arrangement L iving Arrangement: D ependent Living L iving with: F riend I s this a supportive environment? Y es Alcohol Use A lcohol Use Frequency: W eekly or Daily T ype of alcohol consumed L iquor, Beer Q uanity consumed on those occasions 3 or more glasses Q uanity consumed on those occasions 3 -6 Illicit Substance Usage I llicit Substance Usage: N o Employment Status E mployment Status: O n Disability Single Question Alcohol Screening H ow many times in the past year have you had (4 for women, or 5 for men) or more drinks in a day? 1 0 S ocial Determinants: Ruben Duarte ate Completed/Updated: W hat is your current housing situation? I have housing A re you worried about losing your housing??No W hat is the highest level of school that you have finished? M ore than high school W hat is your current work situation? 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 Y es, it has kept me from medical appointments or from getting my medications,Yes, it has kept me from non-medical meetings, appointments, work, or getting things needed for daily living H ow often do you see or talk to people that you care about and feel close to? (For example: talking to friends on the phone, visiting friends or family, going to restoration or club meetings) M ore than 5 times a week H ow stressed are you? Stress is when someone feels tense, nervous, anxious, or can\t sleep at night because their mind is troubled N ot at all I n the past year have you spent more than 2 nights in a row in a senior care, long term, nursing home center, or juvenile correctional facility? N o A re you a refugee? I choose not to answer this question W hat country are you from? I choose not to answer this question D o you feel physically and emotionally safe where you currently live? N o I n the past year, have you been afraid of your partner or ex-partner? I have not had a partner in the past year P MATT Score: 6 E nabling Services Provided? Y es P lease specify C ase Management Assessment First Visit T obacco Use: T obacco Control (Standard) T obacco use: C urrent smoker H ow often do you smoke cigarettes? E very day H ow many cigarettes a day do you smoke? 5 or less M iscellaneous: M ethod of learning P referred method of learning: R eading,Discussion,Demonstration,Hearing R esidential program: Staying for 28 days Living situation: Recently moved to [place], [facility] Alcohol use: Drinking alcohol for 22 years, 1-2 pints a day. * Medications: T akinghydrOXYzine Pamoate 25 MG Capsule 1-2 capsules Orally every 4 hours as needed for anxiety, agitation, or inability to sleep. Do not give within 4 hours of diphenhydramine. Melatonin 5 MG Tablet 1 tablet at bedtime as needed Orally Once a day Escitalopram Oxalate 10 MG Tablet 1 tablet Orally Once a day Multi Vitamin - Tablet 1 tablet Orally Once a day Vitamin D3 25 MCG (1000 UT) Capsule [...] List reviewed and reconciled with the patientTaking hydrOXYzine Pamoate 25 MG Capsule 1-2 capsules Orally every 4 hours as needed for anxiety, agitation, or inability to sleep. Do not give within 4 hours of diphenhydramine. Taking Melatonin 5 MG Tablet 1 tablet at bedtime as needed Orally Once a day Taking Escitalopram Oxalate 10 MG Tablet 1 tablet Orally Once a day Taking Multi Vitamin - Tablet 1 tablet Orally Once a day Taking Vitamin D3 25 MCG (1000 UT) [...] Flavor: hivesno[Allergies Verified] Objective: * Vitals: I nitials:KS, Wt:203.4, Ht:63, BMI:36.03, BP:110/70, HR:82, Oxygen sat %:96, Temp:98.3, RR:16, Pain scale:8. * Examination: [facility] Physical Assessment: Intoxication and Withdrawal signs I ntoxication signs N o signs of intoxication are present during examination. W ithdrawal Signs N o withdrawal signs are present during examination. . G eneral Examination: GENERAL APPEARANCE: a mbulates with assist of rolling walker. PSYCH: a lert, oriented x4, speech clear, judgement and insight good, thought process logical, goal directed, full range of affect/positive mood. ? Assessment: * Assessment: 1. A lcohol use disorder - F10.99 (Primary) 2 . O besity (BMI 30-39.9) - E66.9 3 . N icotine dependence with current use - F17.200 Plan: * Treatment: 2. O thers Notes:01/02/25 11:10 AM, Vignesh Vargas RN> PerJ. Emmanuel APRN's orders, supervised as pt. self-administered Naltrexone 25mg po. Instructed pt. on Naltrexone and Vivitrol per [employer] module handout. Instructed pt. on adverse side effects to report and common side effects. Gave pt. Vivitrol ID bracelet, necklace, and wallet card and explained what/why it is used. Pt. verbalized understanding of all of the above. Will monitor. 01/02/25 11:25 AM, Vignesh Vargas RN> Pt. denies any adverse side effects from the Naltrexone at this time. Will continue to monitor. 01/02/25 11:40 AM, Vignesh Vargas RN> Pt. continues to deny any adverse side effects to the Naltrexone at this time. Reported this to Antonino Benitez APRN. Per orders, okay to administer IM Vivitrol. 01/02/25 11:50 AM, Vignesh Vargas RN> Administered Vivitrol 380mg IM into Lt. gluteus. Pt. tolerated well. No questions/concerns at this time. Pt. given a reminder with walk-in clinic hours, phone numbers, and when pt.'s next Vivitrol is due. Pt. verbalized understanding. 01/02/25 12:05 PM, Vignesh Vargas RN> Pt. denies any adverse side effects from Vivitrol injection given. PerJ. Emmanuel APRN pt. discharged back to [facility]. * Recommended Wellness and Pre vention Guidelines: * S tatus A porsha L ast Done N ext Due A ction Taken N ONCOMPLIANT A lcohol use screening - 1 - - N ONCOMPLIANT B [...] vaccine (over 50) - 1 - - * Therapeutic Injections: Vivitrol : 380 mg (Dose No:1) (Route: Intramuscular) given by BLAYNE Herron on left gluteus (Alcohol use disorder) * Procedure Codes: 9 8960 SELF-MGMT EDUC & TRAIN, 1 [id number] BODY MASS INDEX [id number] MEDICAL NUTRITION, INDIV, [id number] BEHAV CHNG SMOKING 3-10 [id number] [facility] VISIT ESTABLISHED [id number] THER/PROPH/DIAG INJ, SC/IM * Preventive Medicine: Counseling: C are goal follow-up plan: BMI management provided Y es Above Normal BMI Follow-up L ifestyle education regarding diet S MOKING: Patient counselled on the dangers of tobacco use and urged to quit. . * Follow Up: 4 Weeks (Reason: May/) * * Sign off status: Completed true * Provider: Johnie Benitez, MSN, ATHLETIC COACH, MULE SPINNER-C Date: Generated for Sascha barros/Norman/eTransmitting on: 04:57 PM CDT History and Physical Notes * HPI (History of Present Illness) Category Sub-Category Detail Notes Category Not es Interim History Was hospitalized No Emergency room visit No Depression Screening PHQ-9 Little inte rest or pleasure in doing things: Several days Feeling down, depressed, or hopeless: Se veral days Trouble falling or staying asleep, or sl [...] some way: Not at all Total Score: 5 Interpretation: Mild Depression Screening [place] Suicide Sev erity Rating Scale (LF) Do [...] end your life?: No Interpretation:: Low Risk MAR Initial Assessment History of Infect ious Diseases History of viral hepatitis: No History of HIV: No History of TB: No History of other infectious diseases: No Acute Trauma Acute Trauma: No History of IV drug use and r elated infections History of injection drug use?: No Psychiatric History History of psychiatr ic diagnoses?: Yes (specify) Has a psychiatric provider?: Yes. See notes. Consent obtained for psychiatric provider if outside of [place]?: No. Patient sees [place] psychiatric provider. Substance use history Substance Use History, sampson gs of choice:: Alcohol Addiction Treatment History Prior Medica tions for PÉREZ treatment: None. First time seeking treatment. Therapy/counseling and Recov patience support (peers/groups): No history of therapy/counseling or engagement with recovery support peer/groups. Therapy/counseling and recovery support discussed and encouraged. Referrals placed. Primary Care Has a primary care provider?: No Interested in primary care services at this time?: Yes. staff sonographer will coordinate appointment. Assessment and history specific to females Femal e/Female at ?: Yes testing:: Does not have childbearing potential (hysterectomy, post-menopausal, etc). Contraception:: Does not have childbearing potential (hysterectomy, post-menopausal, etc). Hepatitis A and B vaccination status Vac cination status Hep A: Denies vaccination to Hep A. Vaccination encouraged and resources offered. Vaccination status, Hep B: Reports vacci nation for Hep B Housing Stability and Employment Is housing stab le/safe?: Yes Currently employed?: Social Security/dis ability. Support System: Has a support system:: Yes (spec laila): Narcan Access Has Narcan and has b een trained on its use?: Not applicable. Prescription Drug Monitoring Program Pre scription Drug Monitoring Program reviewed?: Yes. No concerns identified. Preventative Health and Wellness follow-up Action Plans for Clinical Quality Measures: Breast Cancer Screening:: Discussed need for breast cancer screening. Patient declined. . Cervical Cancer Screening:: Discussed need for cervical cancer screening. Patient declined. Colorectal Cancer Screening: : Discussed need for colorectal cancer screening. Patient declined. HIV Screening:: Discussed need for HIV s creening. Patient declined. CSSRS Interpretation and Follow Up Plan CSSRS Interpretation and Follow Up Plan CSSRS Screen documented using SF: Yes Risk Disposition from SF: Low - No Follo w Up Plan Required Follow Up Plan: No Follow Up Plan requir ed at this time. Timeframe of Screening: Today Examination Category Sub-Category Detail Notes Category Not es General Examination GENERAL APPEARANCE: ambulate s with assist of rolling walker PSYCH: alert, oriented x4, speech clear, judgement and insight good, thought process logical, goal directed, full range of affect/positive mood ASAM Physical Assessment Intoxication an d Withdrawal signs Intoxication signs: No signs of intoxication are present during examination. . Withdrawal Signs: No withdrawal signs ar e present during examination.
[2025-01-02 16:43] LABS: Hematocrit 32.6 % (37.0-47.0); Hemoglobin 9.6 g/dL (12.0-15.0); Immature Granulocyte Percent A 0.5 % (0-0.5); Lymphocytes Absolute Auto 3.95 K/mm3 (0.9-3.2); Mean Corpuscular HGB Conc 29.4 g/dl (32-36); Mean Corpuscular Hemoglobin 28.7 pg (26-34); Mean Corpuscular Volume 97.3 fl (80-100); Nucleated Red Blood Cells Absolute Auto 0.000 K/mm3 (0.0-0.012); Nucleated Red Blood Cells Perc 0.0 % (0.0-0.2); Platelet Count Result 281 k/mm3 (150-375); Red Blood Count 3.35 M/mm3 (4.2-5.4); White Blood Count 7.8 K/mm3 (4.5-10.0)
[2025-01-02 16:55] LABS: Anion Gap 5 mmol/L (4-12); Blood Urea Nitrogen 16 mg/dL (7-17); Calcium 8.9 mg/dL (8.4-10.2); Carbon Dioxide 31 mmol/L (22-30); Chloride 100 mmol/L (98-107); Estimated CRCL calculation 67 ml/min; Estimated Glomerular Filt Rate > 60; Glucose 91 mg/dL (65-110); Potassium 4.3 mmol/L (3.4-5.0); Sodium 136 mmol/L (137-145)
--- OUTSIDE RECORDS SUMMARY | 2025-01-02 16:57 | XMS_ITS ---
Author Name WALESKA BARAJAS, MS. SUISE Norman HIRAM Address [address] [address] Phone [phone] Organization [facility] Care Team Providers Care Ict Developer Name Role Phone SUSIE GALEANO Unavailable [phone] Reason for Referral Not Available Allergies, adverse reactions, alerts Allergen Type Reaction Severity Status Onset Date Vancomycin Allergy to substance (disorder) anaphylaxis Unkno wn Active N/A Chapstick Allergy to substance (disorder) swelling Unknown Active N/A Latex Allergy to substance (disorder) hives Unknown Active N/A History of medication use Medication Class Instructions Start Date End Date Methocarbamol 750 mg Tab No Data Available 2024-05-09 No Data Available Pantoprazole Sodium 40 mg Ta b delayed rel TAKE 1 TABLET BY MOUTH ONCE DAILY 2024-02-04 2024-09-03 Montelukast Sodium 10 mg Tab TAKE 1 TABL ET BY MOUTH NIGHTLY 2024-02-04 No Data Available Levothyroxine Sodium 100 MCG Tab TAKE 1 TABLET BY MOUTH IN THE MORNING BEFORE BREAKFAST 2024-02-04 No Data Available levETIRAcetam 500 mg Tab TAKE 1 TABLET B Y MOUTH TWICE DAILY 2024-02-04 No Data Available Atorvastatin Calcium 40 mg Tab TAKE 1 TA BLET BY MOUTH NIGHTLY 2024-02-04 No Data Available amLODIPine Besylate 10 mg Tab TAKE 1 TAB LET BY MOUTH ONCE DAILY 2024-02-04 No Data Available Furosemide 40 mg Tab TAKE 1 TABLET BY MO UTH TWICE DAILY 2024-02-04 No Data Available Cyclobenzaprine 10 mg Tab TAKE 1 TABLET BY MOUTH TWICE DAILY NEEDED FOR MUSCLE SPASM 2024-05-10 No Data Available Celecoxib 100 mg Cap TAKE 1 CAPSULE BY M OUTH TWICE DAILY 2024-05-10 No Data Available Ipratropium-Albuterol 0.5-2. 5 (3) MG/3ML Solution USE 1 AMPULE IN NEBULIZER EVERY 4 TO 6 HOURS NEEDED FOR WHEEZING 2024-05-13 No Data Available Albuterol Sulfate HFA 108 (9 0 Base) MCG/ACT Aerosol Solution INHALE 2 PUFFS BY MOUTH EVERY 6 HOURS NEEDED FOR WHEEZING AND FOR SHORTNESS OF BREATH 2024-05-13 No Data Available Carvedilol 6.25 mg Tab TAKE 1 TABLET BY MOUTH TWICE DAILY WITH FOOD 2024-06-24 No Data Available predniSONE 10 mg Tab TAKE ONE TABLET BY MOUTH FOR 1 DOSE 2024-06-23 2024-09-03 LORazepam 0.5 mg Tab TAKE 1 TABLET BY MO UTH EVERY 8 HOURS NEEDED FOR ANXIETY 2024-06-29 2024-09-03 Doxycycline Monohydrate 100 mg Cap TAKE 1 CAPSULE BY MOUTH TWICE DAILY 2024-06-29 No Data Available Folic Acid 1 mg Tab TAKE 1 TABLET BY YANIRA TH ONCE DAILY 2024-07-10 No Data Available chlordiazePOXIDE 25 mg Cap TAKE 1 CAPSUL E BY MOUTH THREE TIMES DAILY NEEDED FOR WITHDRAWAL SYMPTOMS 2024-07-10 2024-09-03 Amoxicillin-Pot Clavulanate 875/125 mg Tab No Data Available 2024-07-25 No Data Available Azithromycin 500 mg Tab No Data Available 2024-07-25 No Data Available Potassium Chloride Mignon ER 2 0 MEQ Tab ER No Data Available 2024-08-08 No Data Available HYDROcodone-Acetaminophen 5/325 mg Tab TAKE 1 TABLET BY MOUTH EVERY 6 HOURS NEEDED FOR PAIN 2024-08-08 No Data Available Sertraline 25 mg Tab 1 tablet orally daily 2024-08-26 No Data Available Symbicort 160-4.5 MCG/ACT Aerosol Inhalation 2 puffs inhaled 2 times per day 2024-09-03 No Data Available Acetaminophen 500 mg Tab 1 tab by mouth 2 times daily 2024-09-03 No Data Available Tiff 5 mg-325 mg tablet 1 tab PO q6 hrs prn 2024-08-12 4 No Data Available Vitamin D3 25 MCG (1000 UT) Cap Take 1 Capsules by mouth daily 2024-09-03 No Data Available Problem List Problem Status Onset Date Resolved Date Synopsis CAD (coronary artery disease) Active 2024-09-03 N/A N/A (HFpEF) heart failure with preserved ejection fraction Active 2024-09-03 N/A N/A HTN (hypertension) Active 2024-09-03 N/A N/A COPD (chronic obstructive pulmonary disease) Active 2024-09-03 N/A N/A Hypothyroid Active 2024-09-03 N/A N/A Seizure disorder Active 2024-09-03 N/A N/A Diverticulitis of colon with perforation Active 2024-09-03 N/A N/A Colostomy in place Active 2024-09-03 N/A N/A Normocytic anemia Active 2024-09-03 N/A N/A Anxiety and depression Active 2024-09-03 N/A N/ A Housing situation unstable Active 2024-09-03 N/A Lives in a hotel 09/04; referred to by hospital Alcohol use disorder Active 2024-09-03 N/A Libr ium rx 07/05; reports she quit drinking 08/04 Tobacco dependence Active 2024-09-03 N/A 40+ ye ar smoking hx; 2 cig/day reported 09/04 Avascular necrosis of hip Active 2024-09-03 N/A N/A Multiple sclerosis Active 2024-09-03 N/A N/A Encounters Encounters Type Facility Date of Service Diagnosis/Co mplaint [facility] [place] [place] 09/03/2024 Dvtrcli of intest, part unsp , w/o perf or abscess w/o bleedEncntr for f/u exam aft trtmt for cond [facility]th [facility] [place] 09/03/2024 Dvtrcli of intest, part unsp , w/o perf or abscess w/o bleedEncntr for f/u exam aft trtmt for cond oth than malig neopl [facility] [place] 09/03/2024 Dvtrcli of intest, part unsp , w/o perf or abscess w/o bleedEncntr for f/u exam aft trtmt for cond oth than malig neoplm Vital Signs Date of Collection Vitals 2024-09-03 10:38:12 O2 % BldC Oximetry - 93.0 %Pain Scale - 0.0 {score} Social History Sex Female History of Procedures Procedures Service Procedure code Service date Servicing provider Phone# [facility] [id number] 2024-09-03 No Data Available No Data Avail able Medrec Completed within 30 Days of Discharge 1111F 2024-09-03 No Data Available No Data Availa ble Pain Assessment - No Pain Documented 1126F 2024-09-03 No Data Available No Data Availa ble Functional Status No Information Mental Status No Information Assessments Date of Service Assessments 2024-09-03 10:38:12 Diverticulitis of in testine, part unspecified, without perforation or abscess without bleedingCOPD (chronic obstructive pulmonary disease)Colostomy complicationHousing situation unstable Plan of Care Date of Service Plans 2024-09-03 10:38:12 continue low fiber d iet; f/u with PCP and surgeon as plannedRN follow up needs: noneContinue inhalers, f/u with PCP and pulmonology. Reviewed safety during current heat/air quality advisoryF/u with home health RN as plannedSW involved Goals Date Goal 2024-09-03 Provider recommendat ions and precautions reviewed with patient/caregiver. They have been advised to call the urgent care number provided for any concerning symptoms or signs that arise prior to 09/25/24. Patient/caregiver expressed understanding and agreement with the plan. Health Concerns Date Concern 2024-09-03 Plan name: [employer] Med icare Premier (PPO)[employer] Access Ends (30 days from dc date): 09/25/24Patient texting capabilities: did not ask 2024-09-03 Visit modality:Phone visit 2024-09-03 Transitions of Care Visit:The patient name and date of were confirmed.The patient/caregiver consented to a CAMMY/PD visit with [place]. The patient was present at the time of the visit. Pt spoke with: Teresa Mock NPPresent during call: nonePatient s preferred language: EnglishTime spent with patient: 14 minutesHPI: Pt is a 54 yo F . 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 She was readmitted for COPD exacerbation and another episode of diverticulitis; was treated with another 14 days of antibiotics while inpatient. Her colostomy was found to have some dehiscence; no surgical intervention needed. She was discharged to home; she is currently unstably housed, living in a hotel with her son (noted as a friend in hospital records); has been referred to , is working on getting permanent housing. She has been feeling fatigued/weak since she got home; SOB is at her baseline. No fever/chills, no nausea, no pain; appetite is fair, following a low fiber diet. BMs ok. Taking meds as rxd. Using albuterol HFA 2x/day and Duoneb 2x/day, in addition to her usual Symbicort. She has home health RN visits for colostomy care; starting PT soon. She is having trouble getting colostomy supplies; has been working with [facility] CM team. Has f/u with PCP tomorrow; surgeon 09/10. Does not yet have pulmonology f/u. 2024-09-03 Type of Visit: IPFac [facility]Discharge Date: 08/26/24Discharge diagnosis: DIVERTICULITIS OF INTESTINE, PART UNSPECIFIED, WITHOUT PERFORATION OR ABSCESS WITHOUT BLEEDING 2024-09-03 Discharge summary ex cerpted:54 yo female w/medical hx of COPD, CAD, hypertension, hypothyroid, seizure disorder, and HFpEF that presented to the ED with c/o abd pain and cramping since last night.Recently discharged on 08/08/24 after 11d LOS s/s recurrent diverticulitis w/perf s/p colostomy and colectomy performed by Dr. Parks (Gen Surg) on 08/02/24.Came back with COPD exacerbation and transverse colitis.Also some dehiscence of her ostomy site. Pt s/p treatment and is stable for discharge. Diagnosis :} Right sided diveticulitis:- Imaging confirmed the findings- Pt completed treated with iv antibiotics (total 14 days).Pt stable for discharge.:} Recent Pacheco's procedure for perforated diverticulitis on 08/02:- Pt is s/p sigmoid colectomy- Pt has a colostomy.- Pt to demonstrate her ability to do self dressing when she gets discharged. She will be discharged once she demonstrates that ability.:} Acute hypoxemic Respiratoy failure secondary to Chronic obstructive pulmonary disease exacerbation :- Pt will be treated with Breathing treatment with bronchodilators, inhaled steroids and completed antibiotics.- Will continue to monitor Pt's clinical progress closely.- Pulmonology on the case.:} CHF chronic and stable, HFpEF (EF 65-70%): No signs of symptoms of decompensated heart failure. Will continue optimal medical therapy.:} Hypertension : Will continue the Pt's home meds as addressed on the active medlist. Will continue to monitor the Pt's BP and adjust the meds as needed.:} Anemia, normocytic; Anemia of Chronic disease: Will continue to monitor the Pt's Hb/Hct. Will consider transfusion if the Hb drops below 7.:} Dyslipidemia : Will continue the Pt's home does of Statin:} Hypothyroidism : Will continue Pt's home dose of Levothyroxine.:} Anxiety/Depression: Will continue the Pt's home dose of anxiolytics and antidepressants.:} Social issues: She lives in a hotel. Was discharged back to the hotel with home health. SW and CM for discharge planning.:} Seizures : Will continue Pt's home dose of antiepilepticsDischarged Condition: stableConsults: pulmonary/intensive care and general surgery
[2025-01-02 16:58] LABS: Hypochromasia 1+; Ovalocytes Occasional; Schistocytes None Seen
--- OUTSIDE RECORDS SUMMARY | 2025-01-02 16:58 | XMS_ITS | Encounter Summary ---
Author Organization [facility] Healthcare Address [address] [place] [address] Care Team Providers Care Counselor At Law Name Role Phone Madisyn Rothman MD Unavailable Aura Chung RN Unavailable [phone] Taye PatelW Unavailable [phone] Kasey BRITT MD, Jaime Corona Unavailable Mt Meza MD Unavailable Kanchan Webb TIME PIECE REPAIRER Primary Care Provider No, Physician Primary Care Provider Jen Vaca MA Unavailable [phone] Encounter Details Date Type Department Care Team (Late st Contact Info) Description 07/09/2024 [facility] Inpatient Enrollment [facility] [address] [place] [id number] Zahida Logan RN Social History Tobacco Use Types Packs/Day Years Used Date Smoking Tobacco: Former Cigarettes 0.1 45 Smokeless Tobacco: Never Alcohol Use Standard Drinks/Week Comments Yes 0 (1 standard drink = 0.6 oz pur e alcohol) socially [facility] [place] Utilities Answer Date Recorded In the past 12 months has [employer] electric, gas, oil, or water company threatened to shut off services in your home? No 07/08/2024 Social Connection and Isolation Panel Answer Date Recorded In a typical week, how many times do you talk on the phone with family, friends, or neighbors? Once a week 07/08/2024 How often do you get together with friends or re latives? Once a week 07/08/2024 How often do you attend sabianism or anglican serv ices? Never 07/08/2024 Do you belong to any clubs o r organizations such as sabianism groups, unions, fraternal or athletic groups, or school groups? No 07/08/2024 How often do you attend meet ings of the clubs or organizations you belong to? Never 07/08/2024 Are you , , di vorced, , never , or living with a partner? 07/08/2024 AUDIT-C Answer Date Recorded Q1: How often do you have a drink containing alc ohol? Monthly or less 06/25/2024 Q2: How many drinks containi ng alcohol do you have on a typical day when you are drinking? 1 or 2 06/25/2024 Q3: How often do you have si x or more drinks on one occasion? Never 06/25/2024 Overall Financial Resource Strain (CARDIA) Answe r Date Recorded How hard is it for you to pa y for the very basics like food, housing, medical care, and heating? Hard 07/08/2024 PHQ-2 Answer Date Recorded PHQ-2 Total Score (If total score is 3 or more points, staff should administer the PHQ-9) 5 07/08/2024 Hunger Vital Sign Answer Date Recorded Within the past 12 months, y ou worried that your food would run out before you got the money to buy more. Sometimes true Within the past 12 months, t he food you bought just didn't last and you didn't have money to get more. Sometimes true PRAPARE - Transportation Answer Date Re corded In the past 12 months, has l ack of transportation kept you from medical appointments or from getting medications? Yes 06/12 In the past 12 months, has l ack of transportation kept you from meetings, work, or from getting things needed for daily living? Yes 07/08/2024 Housing Stability Vital Sign Answer Yfn e Recorded In the last 12 months, was t here a time when you were not able to pay the mortgage or rent on time? No 07/10/2023 In the last 12 months, how many places have you lived? 2 07/10/2023 In the last 12 months, was t here a time when you did not have a steady place to sleep or slept in a detention (including now)? No 07/10/2023 PHQ-9 Answer Date Recorded PHQ-9 Total Score 13 07/08/2024 Housing Stability Vital Sign Answer Yfn e Recorded In the last 12 months, was t here a time when you were not able to pay the mortgage or rent on time? Yes 07/08/2024 In the past 12 months, how m any times have you moved where you were living? 12 07/08/2024 At any time in the past 12 m onths, were you homeless or living in a detention (including now)? Yes 07/08/2024 Personal Safety Answer Date Recorded Have you ever been in or are you currently in a harmful physical or emotional relationship or is someone making you feel afraid or unsafe? Denies 07/06/2024 Comments No Sex and Gender Information Value Date Recorded Sex Assigned at Not on file Legal Sex Female 11:38 PM [employer] Gender Identity Not on file Sexual Orientation Not on file documented as of this encounter Plan of Treatment Not on file documented as of this encounter Visit Diagnoses Not on filedocumented in this encounter Additional Health Concerns Infection Onset Date Last Indicated Resolved Time COVID: Suspected 08/14/2024 08/14/2024 08/14/2024 2:12 AM CDT Ring Surveillance: C. 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 Patient may require a screening swab. Please contact IP/nobi 08/14/2024 08/14/2024 08/28/2024 7:26 PM CDT COVID: Suspected 09/04/2024 09/04/2024 09/04/2024 4:54 AM CDT COVID: Suspected 10/06/2024 10/06/2024 10/06/2024 7:16 PM CDT Ring Surveillance: C. auris Comment:10/17/24: Patient has been identified as part of ring surveillance efforts for c.auris. Patient may require a screening swab/n.moll 10/17/2024 10/17/2024 10/24/2024 7:26 PM C DT COVID: Suspected 11/19/2024 11/19/2024 11/19/2024 11:53 AM CDT MDR gram neg/ESBL 11/19/2024 11/19/2024 COVID: Suspected 12/01/2024 12/01/2024 12/01/2024 10:45 PM CDT COVID: Suspected 12/24/2024 12/24/2024 12/24/2024 4:34 PM CDT Ring Surveillance: C. 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 Patient may require a screening swab. No additional isolation precautions are necessary with this flag/n.moll 12/26/2024 12/26/2024 documented as of this encounter Care Teams Counselor At Law Relationship Specialty Start Date End Date Kanchan Webb NP [address] [place] [address] [address] [place] [address] PCP - General Family Medicine 11/25/24 11/26/24 No, Physician PCP - General 11/27/24 Madisyn Rothman MD Consulting Physician Pulmonary Disease 07/20/23 Aura Chung RN [address] [place] [address] [address] [place] [address] Assistant Chief Of Police 06/25/24 11/17/24 Taye Patel LCSW [address] [place] [address] [address] [place] [address] Cooky Machine Operator 06/26/24 Jaime Parks IV, MD [address] [place] [id number] Consulting Physician General Surgery 08/19/24 08/19/24 [place] [address] [place] [address] Referring Physician Surgery 08/26/24 Jen Vaca, [address] [address] ACO Care R&D Lab Technician 12/03/24 12/03/24 documented as of this encounter
--- OUTSIDE RECORDS SUMMARY | 2025-01-02 16:58 | XMS_ITS | Clinical Summary ---
Author Organization [facility] Address [address] [place] [address] Care Team Providers Care Cutting Supervisor Name Role Phone Kanchan Webb STATE DIRECTOR Primary Care Provider + [phone] Allergies Active Allergy Reactions Criticality Noted Date Comments Latex Hives,Rash Low 06/19/2022 Vancomycin Hives Medium 06/19/2022 Medications Cholecalcifero l 50 MCG (1999 UT) Cap Take 2,000 Units by mouth daily. Active albuterol sulfate HFA 108 (90 Base) MCG/ACT inhaler Inhale 2 puffs into the lungs every 6 (six) hours as needed for Wheezing or Shortness of breath. Active benzonatate (TESSALON) 100 MG capsule 1 capsule (100 mg total) 3 (three) times daily as needed. Active levETIRAcetam (KEPPRA) 500 MG tablet Take 1 tablet (500 mg total) by mouth 2 (two) times daily. Active lisinopril (PRINIVIL) 40 MG tablet Take 1 tablet (40 mg total) by mouth daily. Active montelukast (SINGULAIR) 10 MG tablet Take 1 tablet (10 mg total) by mouth daily. Active pantoprazole EC (PROTONIX) 40 MG tablet Take 1 tablet (40 mg total) by mouth daily. Active albuterol (PROVENTIL) (2.5 MG/3ML) 0.083% nebulizer solution Take 3 mLs (2.5 mg total) by nebulization every 6 (six) hours as needed for Wheezing or Shortness of breath. Active atorvastatin (LIPITOR) 40 MG tablet Take 1 tablet (40 mg total) by mouth nightly at bedtime. 90 tablet 3 Active acetaminophen (TYLENOL) 500 MG tablet Take 1 tablet (500 mg total) by mouth 2 (two) times daily. Active Azelastine HCl 0.15 % Solution 205.5 mcg 2 (two) times daily. Active cyclobenzaprin e (FLEXERIL) 10 MG tablet Take 1 tablet (10 mg total) by mouth 2 (two) times a day as needed for muscle spasms 5 Active fluticasone propionate (FLONASE) 50 MCG/ACT nasal spray 1 spray by Nasal route daily. 5 Active TRELEGY ELLIPTA 100-62.5-25 MCG/ACT AEROSOL POWDER, BREATH ACTIVATED Inhale 1 puff into the lungs daily. 5 Active ipratropium-al buterol (DUONEB) 0.5-2.5 (3) MG/3ML Solution Inhale 3 mLs into the lungs every 6 (six) hours. 5 Active methocarbamol (ROBAXIN) 750 MG Tab Take 1 tablet (750 mg total) by mouth 2 (two) times a day as needed for muscle spasms 5 Active Multiple Vitamin (QUINTABS) Tab Take 1 tablet by mouth daily. 4 Active gabapentin (NEURONTIN) 300 MG capsule Take 1 capsule (300 mg total) by mouth 3 (three) times daily. 4 Active levothyroxine (SYNTHROID) 125 MCG tablet Take 1 tablet (125 mcg total) by mouth daily. Active amLODIPine (NORVASC) 5 MG tablet Take 1 tablet (5 mg total) by mouth every evening. NEW DOSE 05/17/2024 OV 30 tablet 3 5 Active furosemide (LASIX) 20 MG tablet Take 1 tablet (20 mg total) by mouth daily. NEW DOSE 05/17/2024 OV 30 tablet 3 5 Active azithromycin (ZITHROMAX) 500 mg tablet Take 1 tablet (500 mg total) by mouth see administration instructions. Take one tablet by mouth three times a week. 12 tablet 5 Active Active Problems Problem Noted Date Diagnosed Date GI bleed 07/21/2024 GI bleeding 07/21/2024 Obstructive sleep apnea (adult) (pediatric) 05/2024 BRO (dyspnea on exertion) 01/28/2024 Hyperlipidemia 03/15/2023 Leg swelling 06/30/2022 Mitral valve annular calcification 06/30/2022 COPD exacerbation 06/20/2022 Acute on chronic congestive heart failure 2022 Macrocytic anemia 05/03/2022 Vitamin D deficiency 09/25/2021 Hypokalemia 02/15/2016 Hypomagnesemia 10/09/2015 Essential hypertension 03/12/2015 Family History Medical History Relation Comments Heart Attack Father Open Heart Father Stent Cardiac Father Valve Disease Father COPD Mother Relation Status Comments Father (Age 73) Mother (Age 75) Social History Tobacco Use Types Packs/Day Years Used Date Smoking Tobacco: Every Day Cigarettes Smokeless Tobacco: Never Alcohol Use Standard Drinks/Week Comments Yes 5 (1 standard drink = 0.6 oz pur e alcohol) B1300 Health Literacy Answer Date Recor ded How often do you need to hav e someone help you when you read instructions, pamphlets, or other written material from your doctor or pharmacy? Sometimes 07/21/2024 [employer] Utilities Answer Date Recorded In the past 12 months has [employer], [employer], or water [employer] threatened to shut off services in your home? No 07/21/2024 Humiliation, Afraid, Rape, and Kick questionnair e Answer Date Recorded Within the last year, have y ou been afraid of your partner or ex-partner? No 07/21/2024 Within the last year, have y ou been humiliated or emotionally abused in other ways by your partner or ex-partner? No Within the last year, have y ou been kicked, hit, slapped, or otherwise physically hurt by your partner or ex-partner? No 07/21/2024 Within the last year, have y ou been raped or forced to have any kind of sexual activity by your partner or ex-partner? No 07/21/2024 Social Connection and Isolation Panel Answer Date Recorded In a typical week, how many times do you talk on the phone with family, friends, or neighbors? More than three times a week 07/21/2024 How often do you get togethe r with friends or relatives? Three times a week 07/21/2024 How often do you attend [facility] or buddhist services? 1 to 4 times per year 07/21/2024 Do you belong to any clubs o r organizations such as yazidi groups, unions, fraternal or athletic groups, or school groups? No 07/21/2024 How often do you attend meet ings of the clubs or organizations you belong to? Never 07/21/2024 Are you , , di vorced, , never , or living with a partner? 07/21/2024 AUDIT-C Answer Date Recorded Q1: How often do you have a drink containing alc ohol? 2-4 times a month 07/21/2024 Q2: How many drinks containi ng alcohol do you have on a typical day when you are drinking? 5 or 6 07/21/2024 Q3: How often do you have si x or more drinks on one occasion? Monthly 07/21/2024 Overall Financial Resource Strain (CARDIA) Answe r Date Recorded How hard is it for you to pa y for the very basics like food, housing, medical care, and heating? Not very hard 07/21/2024 [facility] - Occupational Stress Questionnaire Answer Date Recorded Do you feel stress - tense, restless, nervous, or anxious, or unable to sleep at night because your mind is troubled all the time - these days? Not at all 07/21/2024 Exercise Vital Sign Answer Date Recorde d On average, how many days pe r week do you engage in moderate to strenuous exercise (like a brisk walk)? 7 days 07/21/2024 On average, how many minutes do you engage in exercise at this level? 30 min 07/21/2024 Hunger Vital Sign Answer Date Recorded Within the past 12 months, y ou worried that your food would run out before you got the money to buy more. Never true 07/22/19 25 Within the past 12 months, t he food you bought just didn't last and you didn't have money to get more. Never true 07/21/2024 PRAPARE - Transportation Answer Date Re corded In the past 12 months, has l ack of transportation kept you from medical appointments or from getting medications? No 07/11 In the past 12 months, has l ack of transportation kept you from meetings, work, or from getting things needed for daily living? No 07/21/2024 Housing Stability Vital Sign Answer Yfn e Recorded In the last 12 months, was t here a time when you were not able to pay the mortgage or rent on time? No 06/20/2022 In the last 12 months, how many places have you lived? 2 06/20/2022 In the last 12 months, was t here a time when you did not have a steady place to sleep or slept in a senior care (including now)? No 06/20/2022 Housing Stability Vital Sign Answer Yfn e Recorded In the last 12 months, was t here a time when you were not able to pay the mortgage or rent on time? No 07/21/2024 In the past 12 months, how m any times have you moved where you were living? 1 07/21/2024 At any time in the past 12 m [facility], were you homeless or living in a senior care (including now)? No 07/21/2024 Comments No Sex and Gender Information Value Date Recorded Sex Assigned at Female 05/17/2024 12:00 PM AMMONIA SOLUTION PREPARER Legal Sex Female 6:27 PM CDT Gender Identity Not on file Sexual Orientation Not on file Last Filed Vital Signs Vital Sign Reading Time Taken Comments Blood Pressure 125/75 07/24/2024 11:04 AM CDT Pulse 120 07/24/2024 11:04 AM CDT Temperature 36.8 C (98.2 F) 07/24/2024 11:04 AM CDT Respiratory Rate 16 07/24/2024 11:0 4 AM CDT Oxygen Saturation 96% 07/24/2024 11: 04 AM CDT Inhaled Oxygen Concentration - - Weight 105.6 kg (232 lb 12.9 oz) 07/24/2024 4:21 AM CDT Height 160 cm (5' 3) 07/21/2024 7:34 AM CDT Body Mass Index 41.24 07/21/2024 7:34 AM CDT Plan of Treatment Health Maintenance Due Date Last Done Comments Annual Physical 1971 Hepatitis B Vaccines (1 of 3 - 19+ 3-dose series) 1987 Mammogram Screening 2008 Zoster Vaccines (1 of 2) 2018 Pneumococcal Vaccine: 50+ Years (3 of 3 - PCV20 or PCV21) 12/12/2019 12/11/2014, 10/14/2014, 09/03/2011 COVID-19 Vaccine ( season) 2024 09/20/2021, 12/03/2020, 11/12/2020 Influenza Adult (#1) 2024 01/29/2024, 12/23/2021, 01/08/2021, Additional history exists DTaP, Tdap and Td Vaccines (2 - Td or Tdap) 02/03/2025 02/03/2015 Colorectal Cancer Screening FIT/FOBT (1 Year) 07/20/2025 07/20/2024 Hepatitis C Completed 03/07/2024, 03/13/2015 Hepatitis A Vaccines Aged Out No long er eligible based on patient's age to complete this topic Meningococcal B Vaccine Aged Out No l onger eligible based on patient's age to complete this topic Meningococcal Vaccine Aged Out No homer eric eligible based on patient's age to complete this topic RSV Immunizations Under 20 Months Aged Out No longer eligible based on patient's age to complete this topic Goals Goal Patient Goal Type Associated Problems Recent Progress Patient-Stated? Author Patient will return to prior living situation and remain independent in ADLs upon discharge from hospital Lifestyle No Aiyana Caro, PRECAST WORKER Health - patient able to perform ADLs independently Lifestyle No Tahira Reyes, RN Interventions Community Resource Recommendations Community Resource Services Recommended Domains Addressed Status Status Reason/Outcome Date/Time [facility] ([facility]) - Healthcare and Family Services ([facility]) Medical Benefits Housing Insecurity Services Alcohol Use, Tobacco Use, Depression Recommended 09/30/2024 7:33 PM CDT from Last 12 Months Procedures Procedure Name Priority Date/Time Associated Diagnosis Comments OCCULT BLOOD, FECES STAT 07/20/2024 1 0:56 PM CDT from Last 3 Months or Most Recently Relevant to Health Maintenance Results * (ABNORMAL) OCCULT BLOOD, FECES (07/20/2024 10:56 PM CDT) OCCULT BLOOD FECAL POSITIVE(A ) NEGATIVE 07/20/2024 11:17 PM CDT [facility] STOOL SPECIMEN / Unknown 07/20/2024 10:56 PM CDT Laurent Romeo MD,PHD BODY FLUIDS AND STOOLS ORD ERABLES Final Result [facility] [address] [place] [address], [place] [phone] from Last 3 Months or Most Recently Relevant to Health Maintenance Insurance [employer] MEDICARE Advance Directives * Full Code (Latest Code Status on File) Date Activated Date Inactivated Comments 07/21/2024 3:39 AM 07/24/2024 4:10 PM * Full Code Date Activated Date Inactivated Comments 06/20/2022 8:18 PM 06/24/2022 4:07 PM Care Teams Cutting Supervisor Relationship Specialty Start Date End Date Kanchan Webb NP [address] [place] [id number] PCP - General NURSE PRACTITIONER 05/17/24
--- OUTSIDE RECORDS SUMMARY | 2025-01-02 16:58 | XMS_ITS | Encounter Summary ---
Author Organization [facility] Healthcare Address [address] [place] [address] Care Team Providers Care Medical And Health Services Manager Name Role Phone Madisyn Rothman MD Unavailable [phone] Taye PatelW Unavailable [phone] Mt Meza MD Unavailable [phone] No, Physician Primary Care Provider [phone] Encounter Details Date Type Department Care Team (Late st Contact Info) Description 12/31/2024 Orders Only [facility] Medical Group [facility] [address] [place] [phone] Jared Krishnamurthy, DO [address] [place] [id number] Social History Tobacco Use Types Packs/Day Years Used Date Smoking Tobacco: Former Cigarettes 0.1 45 Smokeless Tobacco: Never Alcohol Use Standard Drinks/Week Comments Yes 0 (1 standard drink = 0.6 oz pur e alcohol) socially Social Connection and Isolation Panel Answer Date Recorded In a typical week, how many times do you talk on the phone with family, friends, or neighbors? Twice a week 10/15/2024 How often do you get together with friends or re latives? Twice a week 10/15/2024 How often do you attend latter day or anabaptist serv ices? Never 10/15/2024 Do you belong to any clubs o r organizations such as latter day groups, unions, fraternal or athletic groups, or school groups? No 10/15/2024 How often do you attend meet ings of the clubs or organizations you belong to? Never 10/15/2024 Are you , , di vorced, , never , or living with a partner? 10/15/2024 AUDIT-C Answer Date Recorded Q1: How often do you have a drink containing alcohol? Monthly or less 08/14/2024 Q2: How many drinks containi ng alcohol do you have on a typical day when you are drinking? Patient does not drink Q3: How often do you have si x or more drinks on one occasion? Never 08/14/2024 Overall Financial Resource Strain (CARDIA) Answe r Date Recorded How hard is it for you to pa y for the very basics like food, housing, medical care, and heating? Somewhat hard 10/15/2024 PHQ-2 Answer Date Recorded PHQ-2 Total Score (If total score is 3 or more points, staff should administer the PHQ-9) 2 10/15/2024 PRAPARE - Transportation Answer Date Re corded In the past 12 months, has l ack of transportation kept you from medical appointments or from getting medications? Yes 07/2024 In the past 12 months, has l ack of transportation kept you from meetings, work, or from getting things needed for daily living? Yes 10/15/2024 Housing Stability Vital Sign Answer Yfn e [...] place to sleep or slept in a assisted (including now)? No 07/10/2023 PHQ-9 Answer Date Recorded PHQ-9 Total Score 14 10/15/2024 Housing Stability Vital Sign Answer Yfn e Recorded In the last 12 months, was t here a time when you were not able to pay the mortgage or rent on time? Yes 10/15/2024 In the past 12 months, how m any times have you moved where you were living? 3 10/15/2024 At any time in the past 12 m [facility], were you homeless or living in a assisted (including now)? Yes 10/15/2024 Social Connection and Isolation Panel Answer Date Recorded In a typical week, how many times do you talk on the phone with family, friends, or neighbors? Twice a week 12/25/2024 How often do you get together with friends or re latives? Twice a week 12/25/2024 How often do you attend latter day or anabaptist serv ices? Never 12/25/2024 Do you belong to any clubs o r organizations such as latter day groups, unions, fraternal or athletic groups, or school groups? No 12/25/2024 How often do you attend meet ings of the clubs or organizations you belong to? Never 12/25/2024 Are you , , di vorced, , never , or living with a partner? 12/25/2024 Overall Financial Resource Strain (CARDIA) Answe r Date Recorded How hard is it for you to pa y for the very basics like food, housing, medical care, and heating? Somewhat hard 12/25/2024 Hunger Vital Sign Answer Date Recorded Within [...] medical appointments or from getting medications? Yes 12/11 In the past 12 months, has l ack of transportation kept you from meetings, work, or from getting things needed for daily living? Yes 12/25/2024 Housing Stability Vital Sign Answer Yfn e Recorded In the last 12 months, was t here a time when you were not able to pay the mortgage or rent on time? Yes 12/25/2024 In the past 12 months, how m any times have you moved where you were living? 3 12/25/2024 At any time in the past 12 m [facility], were you homeless or living in a assisted (including now)? Yes 12/25/2024 [facility] Utilities Answer Date Recorded In the past 12 months has th e electric, gas, oil, or water company threatened to shut off services in your home? No 12/25/2024 Personal Safety Answer Date Recorded Have you ever been in or are you currently in a harmful physical or emotional relationship or is someone making you feel afraid or unsafe? 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 Author ACO SW Goal - Patient is knowledgeable of available resources to improve socio-economic needs ACO Care Management Worsening( 9:46 AM CDT) No Taye Patel LCSW Note: Problem: Socio-economic Issues Interventions: - Assess need for community resources. - Educate patient on available resources. - Identify/assist in obtaining available community resources. documented as of this encounter Visit Diagnoses Not on filedocumented in this encounter Additional Health Concerns Infection Onset Date Last Indicated Resolved Time MDR gram neg/ESBL 11/19/2024 11/19/2024 Ring Surveillance: C. 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 Patient may require a screening swab. No additional isolation precautions are necessary with this flag/n.moll 12/26/2024 12/26/2024 documented as of this encounter Care Teams Medical And Health Services Manager Relationship Specialty Start Date End Date No, Physician PCP - General 11/27/24 Madisyn Rothman MD Consulting Physician Pulmonary Disease 07/20/23 Taye Patel LCSW [address] [place] [address] DR [address] [place] [address] Gas Pipe Layer 06/26/24 [place] [address] [place] [id number] Referring Physician Surgery 08/26/24 documented as of this encounter
--- OUTSIDE RECORDS SUMMARY | 2025-01-02 16:58 | XMS_ITS | Encounter Summary ---
Author Organization [facility] Healthcare Address [address] [place] [address] Care Team Providers Care Evening Anchor Name Role Phone Madisyn Rothman MD Unavailable [phone] Miscellaneous, Not In File Unavailable Unava ilable Aura Chung RN Unavailable Taye Patel INWARD TOLL OPERATOR Unavailable Kasey BRITT MD, Jaime oCrona Unavailable Mt Meza MD Unavailable [phone] Kanchan Webb TOOL AND DIE MACHINIST Primary Care Provider [phone] No, Physician Primary Care Provider Jen Vaca MA Unavailable [phone] Encounter Details Date Type Department Care Team (Late st Contact Info) Description 06/05/2024 Telephone [facility] Medical Group Family Medicine [address] [facility] [address] [place] [address] Kanchan Webb NP [address] [place] [id number] Social History Tobacco Use Types Packs/Day Years Used Date Smoking Tobacco: Former Cigarettes 0.1 45 Smokeless Tobacco: Never Alcohol Use Standard Drinks/Week Comments Yes 0 (1 standard drink = 0.6 oz pur e alcohol) socially [facility] Utilities Answer Date Recorded In the past 12 months has e electric, gas, oil, or water company threatened to shut off services in your home? No 04/01/2024 Social Connection and Isolation Panel Answer Date Recorded In a typical week, how many times do you talk on the phone with family, friends, or neighbors? Once a week 04/01/2024 How often do you get together with friends or re latives? Once a week 04/01/2024 How often do you attend hinduism or mandaeism serv ices? Never 04/01/2024 Do you belong to any clubs o r organizations such as hinduism groups, unions, fraternal or athletic groups, or school groups? No 04/01/2024 How often do you attend meet ings of the clubs or organizations you belong to? Never 04/01/2024 Are you , , di vorced, , never , or living with a partner? 04/01/2024 AUDIT-C Answer Date Recorded Q1: How often do you have a drink containing alc ohol? Monthly or less 04/15/2024 Q2: How many drinks containi ng alcohol do you have on a typical day when you are drinking? 1 or 2 04/15/2024 Q3: How often do you have si x or more drinks on one occasion? Never 04/15/2024 Overall Financial Resource Strain (CARDIA) Answe r Date Recorded How hard is it for you to pa y for the very basics like food, housing, medical care, and heating? Very hard 04/01/2024 PHQ-2 Answer Date Recorded PHQ-2 Total Score 2 04/01/2024 Hunger Vital Sign Answer Date Recorded Within the past 12 months, y ou worried that your food would run out before you got the money to buy more. Often true 04/01/19 Within the past 12 months, t he food you bought just didn't last and you didn't have money to get more. Often true 04/01/2024 PRAPARE - Transportation Answer Date Re corded In the past 12 months, has l ack of transportation kept you from medical appointments or from getting medications? Yes 03/14 In the past 12 months, has l ack of transportation kept you from meetings, work, or from getting things needed for daily living? Yes 04/01/2024 Housing Stability Vital Sign Answer Yfn e [...] place to sleep or slept in a usp (including now)? No 07/10/2023 PHQ-9 Answer Date Recorded PHQ-9 Total Score 17 04/01/2024 Housing Stability Vital Sign Answer Yfn e Recorded In the last 12 months, was t here a time when you were not able to pay the mortgage or rent on time? No 04/01/2024 In the past 12 months, how m any times have you moved where you were living? 4 04/01/2024 At any time in the past 12 m onths, were you homeless or living in a usp (including now)? No 04/01/2024 Personal Safety Answer Date Recorded Have you ever been in or are you currently in a harmful physical or emotional relationship or is someone making you feel afraid or unsafe? 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 Patient may require a screening swab. Please contact [email or web address] 08/14/2024 08/14/2024 08/28/2024 7:26 PM CDT COVID: [...] documented as of this encounter Care Teams Evening Anchor Relationship Specialty Start Date End Date Kanchan Webb NP [address] [facility] [address] [place] [id number] PCP - General Family Medicine 11/25/24 11/26/24 No, Physician PCP - General 11/27/24 Madisyn Rothman MD Consulting Physician Pulmonary Disease 07/20/23 Miscellaneous, Not In File 04/07/24 Aura Chung, RN [address] [place] [address] DR K[address] [place] [address] Medical Affairs Director 06/25/24 11/17/24 Taye Patel LCSW [address] [place] [address] [address] [place] [address] Line Maintainer 06/26/24 Jaime Parks IV, MD [address] [place] [id number] Consulting Physician General Surgery 08/19/24 08/19/24 Mt Meza MD [address] [place] [address] [phone] Referring Physician Surgery 08/26/24 Jen Vaca MA [address] [place] [address] ACO Care Security Trainer 12/03/24 12/03/24 documented as of this encounter
--- OUTSIDE RECORDS SUMMARY | 2025-01-02 16:58 | XMS_ITS | Clinical Summary ---
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 care 11/25/[address] [address] Nika Sam RN 11/25/[address] [phone] Kanchan Webb NP Ostomy Supply Order 11/19/2024 10:47 AM CDT - 11/25/2024 1:56 PM CDT Hospital Encounter [address] [address] Jihan Ortega MD Singh, Anjanya Devendra, MD Paruchuri, Tharun, MD Ali, Md Shahin, MD COPD exacerbation (HCC) (Primary Dx); UTI (urinary tract infection), uncomplicated; Generalized weakness; Alcohol abuse; MICHAEL (obstructive sleep apnea) Discharge Disposition: Discharge to home or self care 11/18/2024 TCC Subsequent Outreach [facility] [address] [place] [phone] Arlette Rios 11/15/2024 TCC Subsequent Outreach [facility] [address] [place] [phone] Arlette Rios 10/29/[address] [phone] Kanchan Webb NP Case Management- Primary Care 10/28/[address] [phone] Kanchan Webb NP 10/28/[address] [phone] Kanchan Webb NP Medical Question/Miscellaneo us 10/21/2024 Telephone [facility] [address] [place] [phone] Jermaine Haider RN 10/21/2024 TCC Subsequent Outreach [facility] [address] [place] [phone] Zahida Logan RN 10/18/2024 TCC Initial Outreach [facility] [address] [place] [phone] Jermaine Haider RN 10/15/2024 TCC Initial Eligibility Review [facility] [address] [place] [phone] Jermaine Haider RN 10/14/2024 5:55 PM CDT - 10/17/2024 3:13 PM CDT Hospital Encounter [address] [address] Prograis, MD Ayden Castano, MD Bob Whyte Michael, MD Altwal, Angel Vanegas MD COPD exacerbation (HCC) (Primary Dx); Alcoholic intoxication with complication; Verbalizes suicidal thoughts; Hypoxia; Alcohol use disorder, moderate, dependence (HCC) [F10.20]; Avascular necrosis of bone (HCC) [M87.00]; COPD with acute exacerbation (HCC) [J44.1]; Nonintractable epilepsy without status epilepticus, unspecified epilepsy type (HCC) [G40.909]; Generalized weakness [R53.1]; Mixed hyperlipidemia [E78.2]; Acquired hypothyroidism [E03.9]; Acute respiratory failure with hypoxia (HCC); COPD with acute exacerbation (HCC); Acute exacerbation of chronic low back pain Discharge Disposition: Discharge to home, home health skilled care 10/09/2024 Telephone [facility] [address] [place] [phone] Kanchan Webb NP Additional Services Or Orders 10/07/2024 [facility] Initial Eligibility Review [facility] [address] [place] [phone] Zahida Logan RN 10/06/2024 3:17 PM CDT - 10/08/2024 3:45 PM CDT Hospital Encounter [address] [address] Ja Mcgill, DO Farrell, MD Buck Arce Yu, MD Smith, Paco Fermin MD Acute low back pain, unspecified back pain laterality, unspecified whether sciatica present (Primary Dx); Acute exacerbation of chronic low back pain Discharge Disposition: Discharge to home, home health skilled care 10/03/2024 Telephone [facility] Post Acute Care [address] [facility] [address] [place] [phone] Amy Davila MA SNF Outreach from Last 3 Months Immunizations Immunization Administration Dates Next Due Influenza, Quadrivalent, Spl it, Preservative Free, Intramuscular 12/23/2021,01/08/2021 Influenza, Split 01/25/2020 Influenza, Trivalent, Preser vative Free, Intramuscular 01/29/2024 Influenza, Unspecified 12/11/2022(Deferr ed: Patient Refused),12/11/2018,12/27/2017, 017 PPD TEST 09/20/2024,09/12/2024,08/06/2015 Pfizer SARS-CoV-2 Monovalent Vaccination (12+ Yrs) LOPEZ-READY TO USE 09/20/2021 Pfizer SARS-CoV-2 Monovalent Vaccination (12+ Yrs) PURPLE 12/03/2020,11/12/2020 Pneumococcal Conjugate PCV 13 12/11/2014 Pneumococcal Polysaccharide PPV23 10/14/2014, Tdap 02/03/2015,02/03/2015 Surgical History Surgery Date Site/Laterality Comments SECTION ABLATION ARM SURGERY COLON SURGERY 08/02/2024 colectomy with colostomy Medical History Medical History Date Comments Hypertension COPD (chronic obstructive pulmonary disease) KS (myocardial infarction) (HCC) Seizure (HCC) CHF (congestive heart failure) (HCC) Asthma Multiple sclerosis, primary chronic progressive Epilepsy (HCC) Thyroid disease Pneumonia Tachycardia 2022 Alcohol withdrawal syndrome without complication (HCC) 06/26/2024 Family History Medical History Relation Name Comments Lung cancer Brother Heart disease Father COPD Mother Relation Name Status Comments Brother Father Mother Social History Tobacco Use Types Packs/Day Years Used Date Smoking Tobacco: Former Cigarettes 0.1 45 Smokeless Tobacco: Never Tobacco Cessation:Counseling Given: Not Answered Alcohol Use Standard Drinks/Week Comments Yes 0 [...] week 10/15/2024 How often do you attend jewish or church serv ices? Never 10/15/2024 Do you belong to any clubs o r organizations such as jewish groups, unions, fraternal or athletic groups, or [...] place to sleep or slept in a penitentiary (including now)? No 07/10/2023 PHQ-9 Answer Date [...] any time in the past 12 [address] [place] [place], were you homeless or living in a penitentiary (including now)? Yes 10/15/2024 Social Connection and Isolation Panel Answer Date Recorded In a typical week, how many times do you talk on the phone with family, friends, or neighbors? Twice a week 12/25/2024 How often do you get together with friends or re latives? Twice a week 12/25/2024 How often do you attend jewish or church serv ices? Never 12/25/2024 Do you belong to any clubs o r organizations such as jewish groups, unions, fraternal or athletic groups, or [...] any time in the past 12 m [place], were you homeless or living in a penitentiary (including now)? Yes 12/25/2024 [facility] Utilities Answer Date Recorded In the past 12 months has e [employer], gas, oil, or water company threatened to [...] on file Legal Sex Female 11:38 PM [employer] Gender Identity Not on file Sexual Orientation Not on file Obstetrics History Last Filed Vital Signs Vital Sign Reading Time Taken Comments Blood Pressure 95/52 12/31/2024 7:14 AM CDT Pulse 87 12/31/2024 7:28 AM CDT Temperature 36.8 C (98.2 F) 12/31/2024 7:14 AM CDT Respiratory Rate 20 12/31/2024 7:28 AM CDT Oxygen Saturation 94% 12/31/2024 7:28 AM CDT Inhaled Oxygen Concentration - - Weight 97.3 kg (214 lb 8.1 oz) 12/26/2024 5:01 A M CDT Height 160 cm (5' 3) 12/25/2024 5:14 AM CDT Body Mass Index 38 12/25/2024 5:14 AM CDT Plan of Treatment Health Maintenance Due Date Last Done Comments Breast Cancer Screening-Mammogram 1968 Cervical Cancer Screening 1968 Hepatitis B Screening 1986 Regular Well Visit/Exam 18-64 1986 Zoster Vaccine (1 of 2) 2018 Pneumococcal vaccine <65 (3 of 3 - PCV20 or PCV21) 12/12/2019 12/11/2014, 10/14/2014, 09/03/2011 Covid-19 Vaccine (4 - 2024-2 6 season) 2024 09/20/2021, 12/03/2020, 11/12/2020 Influenza Vaccine (#1) 2024 , 12/23/2021, 01/08/2021, Additional history exists DTaP/Tdap/Td Vaccine (3 - Td or Tdap) 02/03/2025 02/03/2015, 02/03/2015 Depression Screening 10/14/2025 10/14/2024, 10/14/2024, 10/06/2024, Additional history exists Colon Cancer Screening-Colonoscopy 06/13/2034 06/13/2024 Colon Cancer Screening-CT Colonography Discontinued 06/13/2024 Colon Cancer Screening-DNA Stool Discontinued 06/14/19 Colon Cancer Screening-FIT Discontinued 06/13/2024 Colon Cancer Screening-Sigmoidoscopy Discontinued 06/13/2024 Hepatitis C Screening Completed 11/20/2024 , 03/07/2024, 07/14/2023, Additional history exists Goals Goal Patient Goal Type Associated Problems Recent Progress Patient-Stated? Author ACO SW Goal - Patient is knowledgeable of available resources to improve socio-economic needs ACO Care Management Worsening( 9:46 AM CDT) No Taye Patel, TAPPER OPERATOR Note: Problem: Socio-economic Issues Interventions: - Assess need for community resources. - Educate patient on available resources. - Identify/assist in obtaining available community resources. Procedures Procedure Name Priority Date/Time Associated Diagnosis Comments INFECTION PREVENTION ARACELIS AURIS PCR, SURVEILLANCE Routine 12/30/2024 10:40 AM CDT MAGNESIUM Routine 12/27/2024 8:34 AM CDT PRO B-TYPE NATRIURETIC PEPTIDE Routine 12/27/2024 8:34 AM CDT INFECTION PREVENTION ARACELIS AURIS PCR, SURVEILLANCE Routine 12/27/2024 3:02 AM CDT EGFR Routine 12/26/2024 2:51 AM CDT DIFFERENTIAL AUTO Routine 12/26/2024 2:5 1 AM CDT CBC WITH AUTO DIFFERENTIAL Routine 12/26/2024 2:51 AM CDT MAGNESIUM Routine 12/26/2024 2:51 AM CDT BASIC METABOLIC PANEL Routine 12/26/2024 2:51 AM CDT EGFR Routine 12/25/2024 4:41 AM CDT DIFFERENTIAL AUTO Routine 12/25/2024 4:4 1 AM CDT CALCIUM, IONIZED Routine 12/25/2024 4:41 AM CDT CBC WITH AUTO DIFFERENTIAL Routine 12/25/2024 4:41 AM CDT BASIC METABOLIC PANEL Routine 12/25/2024 4:41 AM CDT CRP (ACUTE PHASE) Routine 12/24/2024 11: 43 PM CDT ERYTHROCYTE SEDIMENTATION RATE Routine 12/24/2024 11:43 PM CDT MAGNESIUM Routine 12/24/2024 11:43 PM CDT SEPSIS LACTATE WITH REFLEX Timed 12/24/2024 11:43 PM CDT STREP PNEUMONIAE AG, URINE Routine 12/24/2024 9:59 PM CDT LEGIONELLA ANTIGEN, URINE Routine 12/24/2024 9:59 PM CDT POC BLOOD GAS AND CHEMISTRIES, VENOUS Routine 12/24/2024 9:40 PM CDT SEPSIS LACTATE WITH REFLEX Timed 12/24/2024 8:15 PM CDT MRSA ONLY (STAPHYLOCOCCUS AUREUS) PCR Routine 12/24/2024 8:15 PM CDT DRUGS OF ABUSE SCREEN, URINE WITHOUT CONFIRMATION STAT 12/24/2024 7:28 PM CDT URINALYSIS AND REFLEX TO MICROSCOPIC AND CULTURE STAT 12/24/2024 7:[address] CHEST PE W CONTRAST ED 12/24/2024 5:35 PM CDT TROPONIN T HIGH-SENSITIVITY 2-HOUR Timed 12/24/2024 5:19 PM CDT BLOOD CULTURE STAT 12/24/2024 5:11 PM CDT SEPSIS LACTATE WITH REFLEX STAT 12/24/2024 5:02 PM CDT BLOOD CULTURE STAT 12/24/2024 5:02 PM CDT XR CHEST 1 VIEW ED 12/24/2024 4:18 PM CDT MANUAL DIFFERENTIAL STAT 12/24/2024 3 :46 PM CDT TROPONIN T HIGH-SENSITIVITY SERIES (BASELINE, 2HR, 4HR, 6HR) STAT 12/24/2024 3:46 PM CDT PRO B-TYPE NATRIURETIC PEPTIDE STAT 12/24/2024 3:46 PM CDT EGFR STAT 12/24/2024 3:46 PM CDT ETHANOL STAT 12/24/2024 3:46 PM CDT COMPREHENSIVE METABOLIC PANEL STAT 12/24/2024 3:46 PM CDT CBC WITH AUTO DIFFERENTIAL STAT 12/24/2024 3:46 PM CDT INFLUENZA A/B, RSV, AND COVID-19 PCR STAT 12/24/2024 3:46 PM CDT ECG 12-LEAD STAT 12/24/2024 3:39 PM CDT ETHANOL Timed 12/02/2024 2:23 AM CDT TROPONIN T HIGH-SENSITIVITY 4-HR Timed 12/02/2024 2:23 AM CDT XR CHEST 1 VIEW ED 12/01/2024 11:[address] ABDOMEN PELVIS W CONTRAST ED 12/01/2024 11:50 PM CDT ECG 12-LEAD STAT 12/01/2024 10:07 PM CDT INFLUENZA A/B, RSV, AND COVID-19 PCR STAT 12/01/2024 9:58 PM CDT TROPONIN T HIGH-SENSITIVITY SERIES (BASELINE, 2HR, 4HR, 6HR) STAT 12/01/2024 9:51 PM CDT EGFR STAT 12/01/2024 9:51 PM CDT AMYLASE STAT 12/01/2024 9:51 PM CDT MANUAL DIFFERENTIAL STAT 12/01/2024 9 :51 PM CDT LIPASE STAT 12/01/2024 9:51 PM CDT COMPREHENSIVE METABOLIC PANEL STAT 12/01/2024 9:51 PM CDT CBC WITH AUTO DIFFERENTIAL STAT 12/01/2024 9:51 PM CDT HOME O2 EVAL (DESATURATION SCREEN) Routine 11/25/2024 10:33 AM CDT EGFR Routine 11/25/2024 2:33 AM CDT DIFFERENTIAL AUTO Routine 11/25/2024 2:3 3 AM CDT RETICULOCYTES Routine 11/25/2024 2:33 AM CDT IRON PROFILE W/ IBC Routine 11/25/2024 2 :33 AM CDT VITAMIN B12 Routine 11/25/2024 2:33 AM CDT FERRITIN Routine 11/25/2024 2:33 AM CDT FOLATE Routine 11/25/2024 2:33 AM CDT T4, FREE Routine 11/25/2024 2:33 AM CDT CBC WITH AUTO DIFFERENTIAL Routine 11/25/2024 2:33 AM CDT BASIC METABOLIC PANEL Routine 11/25/2024 2:33 AM CDT EGFR Routine 11/24/2024 4:33 AM CDT DIFFERENTIAL AUTO Routine 11/24/2024 4:3 3 AM CDT CBC WITH AUTO DIFFERENTIAL Routine 11/24/2024 4:33 AM CDT BASIC METABOLIC PANEL Routine 11/24/2024 4:33 AM CDT MAGNESIUM Routine 11/24/2024 4:33 AM CDT BLOOD CULTURE STAT 11/23/2024 6:23 AM CDT BLOOD CULTURE STAT 11/23/2024 6:13 AM CDT MAGNESIUM Routine 11/23/2024 3:49 AM CDT EGFR Routine 11/22/2024 3:24 AM CDT DIFFERENTIAL AUTO Routine 11/22/2024 3:2 4 AM CDT MAGNESIUM Routine 11/22/2024 3:24 AM CDT CBC WITH AUTO DIFFERENTIAL Routine 11/22/2024 3:24 AM CDT BASIC METABOLIC PANEL Routine 11/22/2024 3:24 AM CDT EGFR Routine 11/21/2024 3:48 AM CDT DIFFERENTIAL AUTO Routine 11/21/2024 3:4 8 AM CDT CBC WITH AUTO DIFFERENTIAL Routine 11/21/2024 3:48 AM CDT BASIC METABOLIC PANEL Routine 11/21/2024 3:48 AM CDT EGFR Routine 11/20/2024 3:10 AM CDT DIFFERENTIAL AUTO Routine 11/20/2024 3:1 0 AM CDT CBC WITH AUTO DIFFERENTIAL Routine 11/20/2024 3:10 AM CDT BASIC METABOLIC PANEL Routine 11/20/2024 3:10 AM CDT HIV 1/2 ANTIBODY PLUS P24 ANTIGEN Routine 11/20/2024 3:10 AM CDT HEPATITIS C ANTIBODY Routine 11/20/2024 3:10 AM CDT CRP (ACUTE PHASE) Routine 11/19/2024 7:0 9 PM CDT ERYTHROCYTE SEDIMENTATION RATE Routine 11/19/2024 7:09 PM CDT BENZODIAZEPINE CONFIRMATION BY MS STAT 11/19/2024 12:53 PM CDT URINALYSIS, MICROSCOPIC ONLY STAT 11/19/2024 12:53 PM CDT DRUGS OF ABUSE SCREEN, URINE WITH REFLEX CONFIRMATION STAT 11/19/2024 12:53 PM CDT URINE CULTURE STAT 11/19/2024 12:53 PM CDT URINALYSIS AND REFLEX TO MICROSCOPIC AND CULTURE STAT 11/19/2024 12:53 PM CDT XR CHEST 1 VIEW ED Urgent/IP Urgent 11/19/2024 11:32 AM CDT MAGNESIUM STAT 11/19/2024 11:08 AM CDT PHOSPHORUS STAT 11/19/2024 11:08 AM CDT ETHANOL STAT 11/19/2024 11:08 AM CDT EGFR STAT 11/19/2024 11:08 AM CDT DIFFERENTIAL AUTO STAT 11/19/2024 11: 08 AM CDT PRO B-TYPE NATRIURETIC PEPTIDE STAT 11/19/2024 11:08 AM CDT COMPREHENSIVE METABOLIC PANEL STAT 11/19/2024 11:08 AM CDT CBC WITH AUTO DIFFERENTIAL STAT 11/19/2024 11:08 AM CDT INFLUENZA A/B, RSV, AND COVID-19 PCR STAT 11/19/2024 11:08 AM CDT ECG 12-LEAD STAT 11/19/2024 10:55 AM CDT EGFR Routine 10/17/2024 6:29 AM CDT DIFFERENTIAL AUTO Routine 10/17/2024 6:2 9 AM CDT CBC WITH AUTO DIFFERENTIAL Routine 10/17/2024 6:29 AM CDT BASIC METABOLIC PANEL Routine 10/17/2024 6:[address] ABDOMEN PELVIS W CONTRAST ED 10/15/2024 2:[address] HEAD WO CONTRAST ED 10/15/2024 2 :[address] CHEST PE W CONTRAST ED 10/15/2024 2:25 AM CDT TROPONIN T HIGH-SENSITIVITY 4-HR Timed 10/14/2024 10:39 PM CDT URINALYSIS AND REFLEX TO MICROSCOPIC AND CULTURE STAT 10/14/2024 9:55 PM CDT SEPSIS LACTATE WITH REFLEX Timed 10/14/2024 9:24 PM CDT TROPONIN T HIGH-SENSITIVITY 2-HOUR Timed 10/14/2024 7:45 PM CDT ETHANOL STAT 10/14/2024 7:45 PM CDT BLOOD CULTURE STAT 10/14/2024 7:45 PM CDT BLOOD CULTURE STAT 10/14/2024 7:39 PM CDT POC BLOOD GAS AND CHEMISTRIES, ARTERIAL Routine 10/14/2024 6:41 PM CDT XR CHEST 1 VIEW ED 10/14/2024 6:31 PM CDT D-DIMER, QUANTITATIVE STAT 10/14/2024 6:09 PM CDT MANUAL DIFFERENTIAL STAT 10/14/2024 6 :09 PM CDT EGFR STAT 10/14/2024 6:09 PM CDT THYROID FUNCTION CASCADE STAT 10/14/2024 6:09 PM CDT PHOSPHORUS STAT 10/14/2024 6:09 PM CDT MAGNESIUM STAT 10/14/2024 6:09 PM CDT TROPONIN T HIGH-SENSITIVITY SERIES (BASELINE, 2HR, 4HR, 6HR) STAT 10/14/2024 6:09 PM CDT PROTIME-INR STAT 10/14/2024 6:09 PM CDT SEPSIS LACTATE WITH REFLEX STAT 10/14/2024 6:09 PM CDT COMPREHENSIVE METABOLIC PANEL STAT 10/14/2024 6:09 PM CDT CBC WITH AUTO DIFFERENTIAL STAT 10/14/2024 6:09 PM CDT PRO B-TYPE NATRIURETIC PEPTIDE STAT 10/14/2024 6:09 PM CDT ECG 12-LEAD STAT 10/14/2024 5:58 PM CDT MRI CERVICAL SPINE W WO CONTRAST IP Routine 10/07/2024 2:14 PM CDT EGFR Routine 10/07/2024 2:36 AM CDT DIFFERENTIAL AUTO Routine 10/07/2024 2:3 6 AM CDT CBC WITH AUTO DIFFERENTIAL Routine 10/07/2024 2:36 AM CDT COMPREHENSIVE METABOLIC PANEL Routine 10/07/2024 2:36 AM CDT INFLUENZA A/B, RSV, AND COVID-19 PCR STAT 10/06/2024 6:[address] RECON THORACIC AND LUMBAR SPINE W CONTRAST ED 10/06/2024 6:[address] CHEST PE W CONTRAST ED Urgent/IP Urgent 10/06/2024 6:[address] HEAD WO CONTRAST ED 10/06/2024 6 :[address] ABDOMEN PELVIS W CONTRAST ED 10/06/2024 6:23 PM CDT PRO B-TYPE NATRIURETIC PEPTIDE Timed 10/06/2024 5:31 PM CDT TROPONIN T HIGH-SENSITIVITY 2-HOUR Timed 10/06/2024 5:31 PM CDT XR CHEST 1 VIEW ED 10/06/2024 3:43 PM CDT ECG 12-LEAD STAT 10/06/2024 3:35 PM CDT EGFR STAT 10/06/2024 3:33 PM CDT DIFFERENTIAL AUTO STAT 10/06/2024 3:3 3 PM CDT TROPONIN T HIGH-SENSITIVITY SERIES (BASELINE, 2HR, 4HR, 6HR) STAT 10/06/2024 3:33 PM CDT COMPREHENSIVE METABOLIC PANEL STAT 10/06/2024 3:33 PM CDT CBC WITH AUTO DIFFERENTIAL STAT 10/06/2024 3:33 PM CDT COLONOSCOPY 06/13/2024 8:23 AM CDT from Last 3 Months or Most Recently Relevant to Health Maintenance Results * Infection Prevention Aracelis auris PCR, surveillance Axilla/Groin (12/30/2024 10:40 AM CDT) Aracelis auris DNA Not Detected Not Detected [facility] Comment: Interpretive Data Testing performed by [facility] Infectious Disease Laboratory using the Gage hima 6800 Aracelis auris assay. This assay detects DNA from Aracelis auris using Real-Time PCR. This assay is laboratory developed and is not cleared by the [place] Food and Drug Administration. The performance characteristics have been verified by the [facility]. Testing performed by: [facility], [address] [facility], [place]., [address] Axilla/Groin 12/30/2024 10:4 0 AM CDT 12/30/2024 1:52 PM CDT Narrative WISAM ROJO - 12/31/2024 7:09 AM CDT Order placed by OPA due to ring surveillance. us Instant Order Generic Provider LAB MICROBIOLOGY - GENERAL ORDERABLES Final Result WISAM [id number] [facility] [place] [address] [facility] * (ABNORMAL) Pro B-type natriuretic peptide (12/27/2024 8:34 AM CDT) NT-proBNP 1,594(H) <=300 pg/mL Comment: Interpretive Comments: A. Dyspnea in Acute Care Setting All Ages: < 300 pg/ml, acute heart failure unlikely. < 50 yrs: 300 - 450 pg/ml, further investigation warranted. > 450 pg/ml, acute heart failure likely. 50 - 74 yrs: 300 - 900 pg/ml, further investigation warranted. > 900 pg/ml, acute heart failure likely . > or = 75 yrs: 450 - 1800 pg/ml, further investigation warranted. > 1800 pg/ml, acute heart failure likely. B. Non-acute Setting < 75 yrs < 125 pg/ml, rules out heart failure. > or = 125 pg/ml, further investigation warranted. > or = 75 yrs < 450 pg/ml, rules out heart failure. > or = 450 pg/ml, further investigation warranted. - Knowledge of each individual patient's NT-proBNP range may be more useful than using similar cut-points for every patient. Please note that marked elevations in NT-proBNP levels may be observed in state other than Left Ventricular Congestive Failure, including: acute coronary syndromes, right heart strain/failure (including pulmonary embolism and cor pulmonale), critical illness, renal failure, as well as advanced age. - References: 1. Dat CARRERA et.al. Eur Heart J. 2006:27:330-337. 2. Cj RW, Cyndi SOUSA. J. AM Aruna Cardiol: Cardiovasc Imag. 2009;2: 216- 225. Interpretive Data Last Revised Date: 2017. Blood 12/27/2024 8:34 AM CDT 12/27/2024 8:45 AM CDT us Saim Krishnamurthy DO LAB BLOOD ORDERABLES Final Resul t Performing Organization Address [facility] Co de Phone Number [address] [place] [employer] [place] [address] * Magnesium (12/27/2024 8:34 AM CDT) Magnesium 1.9 1.4 - 2.5 mg/dL Blood 12/27/2024 8:34 AM CDT 12/27/2024 8:45 AM CDT Saim Krishnamurthy DO LAB BLOOD ORDERABLES Final Resul t Performing Organization Address City/[facility] de Phone Number [address] [address] * Infection Prevention Aracelis auris PCR, surveillance Axilla/Groin (12/27/2024 3:02 AM CDT) Aracelis auris DNA Not Detected Not Detected [facility] Comment: Interpretive Data Testing performed by [facility] Disease [facility] using the Gage hima 6800 Aracelis auris assay. This assay detects DNA from Aracelis auris using Real-Time PCR. This assay is laboratory developed and is not cleared by the [place] Food and Drug Administration. The performance characteristics have been verified by the [facility] Disease [facility]. Testing performed by: [facility], [address] [place]., [address] Axilla/Groin 12/27/2024 3:02 AM CDT 12/27/2024 5:14 AM CDT Narrative WISAM - 12/27/2024 5:44 PM CDT Order placed by OPA due to ring surveillance. us Instant Order Generic Provider LAB MICROBIOLOGY - GENERAL ORDERABLES Final Result Performing Organization Address City/[facility] Co de Phone Number WISAM [address] [place] [address] BJ * eGFR (12/26/2024 2:51 AM CDT) Pathologist [facility] eGFR 88 >=60 mL/min/1. 73 m2 Comment: Interpretive Data Reference Interval Normal >/= 90 mL/min/1.73m2 Mildly decreased* 60 - 89 mL/min/1.73m2 Mildly to moderately decreased 45 - 59 mL/min/1.73m2 Moderately to severely decreased 30 - 44 mL/min/1.73m2 Severely decreased 15 - 29 mL/min/1.73m2 Kidney Failure < 15 mL/min/1.73m2 *Relative to young adult level Estimated glomerular filtration rate is determined by the 2020 CKD-EPI equation recommended by the National Kidney Foundation (A Unifying Approach to GFR Estimation: Recommendations of the NKF-ASK Task Force on Reassessing the Inclusion of Race in Diagnosing Kidney Disease, JASN 2020). The CKD-EPI equation should not be used for patients with unstable renal function and has not been validated in children and those over 70. Current interpretive data was last reviewed 2021. Blood 12/26/2024 2:51 AM CDT 12/26/2024 3:02 AM CDT Saim Krishnamurthy DO LAB BLOOD ORDERABLES Final Resul t Performing Organization Address City/[facility]/ZIP Co de Phone Number WISAM ROJO [address] [place] [address] [place] [address] * Differential, auto (12/26/2024 2:51 AM CDT) Pathologist [facility] Neutrophil abs 5.09 1.50 - 6.50 K/cumm Imm gran abs 0.02 0.00 - 0.10 K/cumm [facility] Lymphocyte abs 1.63 0.80 - 3.30 K/cumm [facility] Monocyte abs 0.44 0.20 - 0.80 K/cumm [facility] Eosinophil abs 0.00 0.00 - 0.50 K/cumm [facility] Basophil abs 0.01 0.00 - 0.10 K/cumm [facility] Neutrophil pct 70.8 % [facility] Comment: Interpretive Data Percent cell count reference ranges are not reported, since discordance with absolute values may lead to misinterpretation of CBC data. Current Interpretive Data was last revised on 2017. Imm gran pct 0.3 % [facility] Comment: Interpretive Data Percent cell count reference ranges are not reported, since discordance with absolute values may lead to misinterpretation of CBC data. Current Interpretive Data was last revised on 2017. Lymphocyte pct 22.7 % [facility] Comment: Interpretive Data Percent cell count reference ranges are not reported, since discordance with absolute values may lead to misinterpretation of CBC data. Current Interpretive Data was last revised on 2017. Monocyte pct 6.1 % [facility] Comment: Interpretive Data Percent cell count reference ranges are not reported, since discordance with absolute values may lead to misinterpretation of CBC data. Current Interpretive Data was last revised on 2017. Eosinophil pct 0.0 % [facility] Comment: Interpretive Data Percent cell count reference ranges are not reported, since discordance with absolute values may lead to misinterpretation of CBC data. Current Interpretive Data was last revised on 2017. Basophil pct 0.1 % [facility] Comment: Interpretive Data Percent cell count reference ranges are not reported, since discordance with absolute values may lead to misinterpretation of CBC data. Current Interpretive Data was last revised on 2017. Blood 12/26/2024 2:51 AM CDT 12/26/2024 3:02 AM CDT us Saim Krishnamurthy DO LAB BLOOD ORDERABLES Final Resul t [facility] [address] [facility] Department of Laboratories [place], [place] [id number] * (ABNORMAL) CBC with auto differential (12/26/2024 2:51 AM CDT) WBC 7.19 3.80 - 9.90 K/cumm Hgb 9.2(L) 11.9 - 15.5 g/dL [facility] Hct 29.5(L) 35.6 - 45.5 % [facility] Plt 178 150 - 400 K/cumm [facility] MPV 9.8 9.1 - 12.3 fL [facility] RBC 3.15(L) 3.90 - 5.20 M/cumm [facility] MCV 93.7 81.3 - 96.4 fL [facility] MCH 29.2 27.1 - 33.3 pg [facility] MCHC 31.2(L) 32.3 - 35.7 g/dL [facility] RDW CV 18.2(H) 11.1 - 14.9 % [facility] RDW SD 61.7(H) 35.7 - 48.1 fL [facility] NRBC abs 0.02(H) 0.00 - 0.01 K/cumm [facility] Blood 12/26/2024 2:51 AM CDT 12/26/2024 3:02 AM CDT Saim Krishnamurthy DO LAB BLOOD ORDERABLES Final Resul t Performing Organization Address [facility] Co de Phone Number [address] [employer] [place], [place] [id number] * Magnesium (12/26/2024 2:51 AM CDT) Pathologist [facility] Magnesium 2.4 1.4 - 2.5 mg/dL Blood 12/26/2024 2:51 AM CDT 12/26/2024 3:02 AM CDT [employer] DO LAB BLOOD ORDERABLES Final Resul t Performing Organization Address [facility] Co de Phone Number [address] [place] [address] * Basic metabolic panel (12/26/2024 2:51 AM CDT) Sodium 140 135 - 145 mmol/L Potassium, pl 3.5 3.3 - 4.9 mmol/L [facility] Chloride 101 97 - 110 mmol/L [facility] CO2 28 22 - 32 mmol/L [facility] Anion gap 11 2 - 15 mmol/L [facility] BUN 16 6 - 25 mg/dL [facility] Creatinine 0.79 0.60 - 1.10 mg/dL [facility] Glucose 122 70 - 199 mg/dL [facility] Comment: Interpretive Data Fasting glucose >/= 126 mg/dl is diagnostic for diabetes. Fasting is defined as no caloric intake for at least 8 hours. Fasting glucose between 100 mg/dl to 125 mg/dl is diagnostic of prediabetes. In a patient with classic symptoms of hyperglycemia or hyperglycemic crisis, a random glucose >/= 200 mg/dl is diagnostic for diabetes. In the absence of unequivocal hyperglycemia, results should be confirmed by repeat testing. The classification and Diagnosis of Diabetes Diabetes Care 202; 46: S19-S40. Current interpretive data was last revised 2022. Calcium 8.7 8.5 - 10.3 mg/dL [facility] Blood 12/26/2024 2:51 AM CDT 12/26/2024 3:02 AM CDT us Jared Krishnamurthy DO LAB BLOOD ORDERABLES [facility] [address] [facility] [place] [address] * eGFR (12/25/2024 4:41 AM CDT) eGFR >90 >=60 mL/min/1. 73 m2 Comment: Interpretive Data Reference Interval Normal >/= 90 mL/min/1.73m2 Mildly decreased* 60 - 89 mL/min/1.73m2 Mildly to moderately decreased 45 - 59 mL/min/1.73m2 Moderately to severely decreased 30 - 44 mL/min/1.73m2 Severely decreased 15 - 29 mL/min/1.73m2 Kidney Failure < 15 mL/min/1.73m2 *Relative to young adult level Estimated glomerular filtration rate is determined by the 2020 CKD-EPI equation recommended by the National Kid[employer] (A Unifying Approach to GFR Estimation: Recommendations of the NKF-ASK Task Force on Reassessing the Inclusion of Race in Diagnosing Kidney Disease, JASN 2020). The CKD-EPI equation should not be used for patients with unstable renal function and has not been validated in children and those over 70. Current interpretive data was last reviewed 2021. Blood 12/25/2024 4:41 AM CDT 12/25/2024 5:21 AM CDT Dar Stewart DO LAB BLOOD ORDERABLES Final Resul t [place] [id number] [facility] [place] [address] * (ABNORMAL) Differential, auto (12/25/2024 4:41 AM CDT) Neutrophil abs 7.64(H) 1.50 - 6.50 K/cumm Imm gran abs 0.04 0.00 - 0.10 K/cumm [facility] Lymphocyte abs 1.04 0.80 - 3.30 K/cumm [facility] Monocyte abs 0.13(L) 0.20 - 0.80 K/cumm [facility] Eosinophil abs 0.00 0.00 - 0.50 K/cumm [facility] Basophil abs 0.02 0.00 - 0.10 K/cumm [facility] Neutrophil pct 86.1 % [facility] Comment: Interpretive Data Percent cell count reference ranges are not reported, since discordance with absolute values may lead to misinterpretation of CBC data. Current Interpretive Data was last revised on 2017. Imm gran pct 0.5 % [facility] Comment: Interpretive Data Percent cell count reference ranges are not reported, since discordance with absolute values may lead to misinterpretation of CBC data. Current Interpretive Data was last revised on 2017. Lymphocyte pct 11.7 % [facility] Comment: Interpretive Data Percent cell count reference ranges are not reported, since discordance with absolute values may lead to misinterpretation of CBC data. Current Interpretive Data was last revised on 2017. Monocyte pct 1.5 % [facility] Comment: Interpretive Data Percent cell count reference ranges are not reported, since discordance with absolute values may lead to misinterpretation of CBC data. Current Interpretive Data was last revised on 2017. Eosinophil pct 0.0 % [facility] Comment: Interpretive Data Percent cell count reference ranges are not reported, since discordance with absolute values may lead to misinterpretation of CBC data. Current Interpretive Data was last revised on 2017. Basophil pct 0.2 % [facility] Comment: Interpretive Data Percent cell count reference ranges are not reported, since discordance with absolute values may lead to misinterpretation of CBC data. Current Interpretive Data was last revised on 2017. Blood 12/25/2024 4:41 AM CDT 12/25/2024 5:21 AM CDT [facility] LAB BLOOD ORDERABLES Final Resul t Performing Organization Address [facility] de Phone Number [address] [address] * (ABNORMAL) Calcium, ionized (12/25/2024 4:41 AM CDT) Pathologist [facility] Calcium, Ionized 4.12(L) 4.50 - 5.10 mg/dL Blood 12/25/2024 4:41 AM CDT 12/25/2024 5:21 AM CDT [facility] BLOOD ORDERABLES Final Resul t Performing Organization Address City/[facility] Co de Phone Number [address] [address] * (ABNORMAL) CBC with auto differential (12/25/2024 4:41 AM CDT) Pathologist [facility] WBC 8.87 3.80 - 9.90 K/cumm Hgb 9.7(L) 11.9 - 15.5 g/dL [facility] Hct 31.5(L) 35.6 - 45.5 % [facility] Plt 186 150 - 400 K/cumm [facility] MPV 10.0 9.1 - 12.3 fL [facility] RBC 3.40(L) 3.90 - 5.20 M/cumm [facility] MCV 92.6 81.3 - 96.4 fL [facility] MCH 28.5 27.1 - 33.3 pg [facility] MCHC 30.8(L) 32.3 - 35.7 g/dL [facility] RDW CV 18.2(H) 11.1 - 14.9 % [facility] RDW SD 61.4(H) 35.7 - 48.1 fL [facility] NRBC abs 0.00 0.00 - 0.01 K/cumm [facility] Blood 12/25/2024 4:41 AM CDT 12/25/2024 5:21 AM CDT Dar Stewart DO LAB BLOOD ORDERABLES Final Resul t [facility] [address] [facility] [place] [address] * (ABNORMAL) Basic metabolic panel (12/25/2024 4:41 AM CDT) Sodium 138 135 - 145 mmol/L Potassium, pl 3.3 3.3 - 4.9 mmol/L [facility] Chloride 100 97 - 110 mmol/L [facility] CO2 26 22 - 32 mmol/L [facility] Anion gap 12 2 - 15 mmol/L [facility] BUN 9 6 - 25 mg/dL [facility] Creatinine 0.72 0.60 - 1.10 mg/dL [facility] Glucose 135 70 - 199 mg/dL [facility] Comment: Interpretive Data Fasting glucose >/= 126 mg/dl is diagnostic for diabetes. Fasting is defined as no caloric intake for at least 8 hours. Fasting glucose between 100 mg/dl to 125 mg/dl is diagnostic of prediabetes. In a patient with classic symptoms of hyperglycemia or hyperglycemic crisis, a random glucose >/= 200 mg/dl is diagnostic for diabetes. In the absence of unequivocal hyperglycemia, results should be confirmed by repeat testing. The classification and Diagnosis of Diabetes Diabetes Care 2021; 46: S19-S40. Current interpretive data was last revised 2022. Calcium 8.1(L) 8.5 - 10.3 mg/dL [facility] Blood 12/25/2024 4:41 AM CDT 12/25/2024 5:21 AM CDT Dar Stewart LAB BLOOD ORDERABLES Final Resul t Performing Organization Address [facility] de Phone Number [address] [place] [address] * (ABNORMAL) Sepsis Lactate w/ Reflex (12/24/2024 11:43 PM CDT) Sepsis Lactate 2.3(H) 0.7 - 2.0 mmol/L Blood 12/24/2024 11:4 3 PM CDT 12/24/2024 11:47 PM CDT Cl Trivedi MD LAB BLOOD ORDERABLE S Final Result Performing Organization Address [facility] de Phone Number [address] [place] [address] * Erythrocyte sedimentation rate (12/24/2024 11:43 PM CDT) Erythrocyte sedimentation rate 12 1 - 30 mm/hr Blood 12/24/2024 11:4 3 PM CDT 12/25/2024 12:30 AM CDT Dar Terry KABA LAB BLOOD ORDERABLES Final Resul t Performing Organization Address [facility] de Phone Number [address] [place] [address] * (ABNORMAL) CRP (acute phase) (12/24/2024 11:43 PM CDT) CRP 102.0(H) <=10.0 mg/L Blood 12/24/2024 11:4 3 PM CDT 12/25/2024 12:30 AM CDT Dar Terry LAB BLOOD ORDERABLES Final Resul t Performing Organization Address [facility]/ZIP Co de Phone Number [facility] [address] [place] [address] * (ABNORMAL) Magnesium (12/24/2024 11:43 PM CDT) [facility] Magnesium 1.2(L) 1.4 - 2.5 mg/dL Blood 12/24/2024 11:4 3 PM CDT 12/25/2024 12:30 AM CDT [facility] BLOOD ORDERABLES Final Resul t Performing Organization Address [facility] de Phone Number [address] [address] * Strep pneumoniae antigen, urine Urine (12/24/2024 9:59 PM CDT) [facility] S. pneumoniae Ag Negative Negative Comment: Interpretive Data A positive result is indicative of pneumococcal pneumonia in patients with severe CAP. Cross-reactivity with closely related Streptococcus bacteria may occur. A negative result suggests no current or recent pneumococcal infection but cannot rule out infection with S. pneumoniae. The results of this testing should be used in conjunction with clinical findings and other diagnostic testing, including microbiologic culture. Current Interpretive Data was last revised on 2022 Urine 12/24/2024 9:59 PM CDT 12/24/2024 10:05 PM CDT [facility] MICROBIOLOGY - GENERAL ORDER AKIRA Final Result Performing Organization Address [facility] de Phone Number [address] [place] [address] * Legionella antigen Urine (12/24/2024 9:59 PM CDT) [facility] Legionella Ag Negative Negative Comment: Interpretive Data This test detects only Legionella pneumophila serogroup 1 antigen. Testing performed by [facility] ([phone]). Current interpretive data was last revised on 2019. Testing performed by: [facility], [address] [place] [address] Urine 12/24/2024 9:59 PM CDT 12/25/2024 1:37 AM CDT Dar Stewart DO LAB MICROBIOLOGY - GENERAL ORDER AKIRA Final Result [facility] [address] [place] [address] * POC Blood Gas and Chemistries, Venous - (12/24/2024 9:40 PM CDT) pH,felton POC 7.36 7.32 - 7.43 pCO2, felton POC 45 40 - 50 mmHg [facility] pO2,felton POC 37 mmHg [facility] Comment: Interpretive Data No reference range established. Current interpretive data was last revised 2019. HCO3, felton (Calc) POC 25 20 - 30 mmol/L [facility] Base excess, felton POC 0 mmol/L [facility] Comment: Interpretive Data No reference range established. Current interpretive data was last revised 2019. Blood 12/24/2024 9:40 PM CDT 12/24/2024 9:40 PM CDT Dar Stewart DO LAB POCT ORDERABLES - DEVICE Fin al Result Performing Organization Address [facility]/ZIP Co de Phone Number [address] [place] [address] * (ABNORMAL) Sepsis Lactate w/ Reflex (12/24/2024 8:15 PM CDT) Sepsis Lactate 2.8(H) 0.7 - 2.0 mmol/L Blood 12/24/2024 8:15 PM CDT 12/24/2024 8:22 PM CDT Cl Trivedi MD LAB BLOOD ORDERABLE S Final Result [facility] [address] [place] [address] * MRSA Only (Staphylococcus aureus) PCR Nasal (12/24/2024 8:15 PM CDT) PCR Scrn, Methicillin resistant Staphylococcus aureus (MRSA) Not Detected Not Detected Comment: Interpretive Data Testing performed using Nucleic Acid Amplification with the [employer] Xpert MRSA NxG Assay. This assay detects target DNA from mecA, mecC and the SCCmec insertion site of Staphylococcus aureus using Real-Time PCR and has been cleared by the FDA. Performance characteristics have been verified by the [facility]. Current Interpretive Data was last revised on 2022 Nasal 12/24/2024 8:15 PM CDT 12/24/2024 8:22 PM CDT Dar Stewart LAB MICROBIOLOGY - GENERAL ORDER AKIRA Final Result [facility] [address] [place] [address] * Urinalysis reflex to microscopic and culture Urine (12/24/2024 7:28 PM CDT) [facility] Color, ur Straw Yellow Clarity, ur Clear Clear [facility] Specific gravity, ur 1.014 1.003 - 1.030 [facility] pH, urine 5.0 [facility] Comment: Interpretive Data U rine pH is affected by diet, medications, systemic acid-base disturbances, and renal tubular function. pH may affect urinary stone formation. For example, urine pH below 6.0 may help reduce the tendency for calcium phosphate stones and pH greater than 6.0 may reduce the tendency for uric acid stone formation. Source: [facility] Current Interpretive Data was last revised on 2017 Protein, ur ql Negative Negative [facility] Glucose, ur ql Negative Negative [facility] Ketones, ur Negative Negative [facility] Bilirubin, ur Negative Negative [facility] Blood, ur Negative Negative [facility] Urobilinogen, ur <2.0 <2.0 mg/dL [facility] Nitrite, ur Negative Negative [facility] Leukocyte esterase, ur Negative Negative [facility] UA reflex comment Reflex conditions for microscopic UA and culture not met. [facility] Urine 12/24/2024 7:28 PM CDT 12/24/2024 7:37 PM CDT Cl Trivedi MD LAB MICROBIOLOGY - GENERAL ORDERABLES Final Result [facility] [address] [facility] [place] [address] * Drugs of Abuse Screen, Urine without Confirmation (12/24/2024 7:28 PM CDT) Amphetamine, ur Not Detected CutOff 500ng/mL Comment: Interpretive Data - Amphetamines: Samples containing greater than 500 ng/mL d-methamphetamine or other cross-reacting amphetamine compounds are reported as positive. Amphetamine immunoassays are subject to significant false positive rates due to cross-reactivity of non-amphetamine drugs. Confirmatory testing required for definitive results. Current Interpretive Data was last reviewed 2022. Barbiturates, ur Not Detected CutOff 200ng/mL [facility] Comment: Interpretive Data - Barbiturates: Samples containing greater than 200 ng/mL secobarbital or other cross-reacting barbiturate compounds are reported as positive. False positive and false negative results are possible. Confirmatory testing required for definitive results. Current Interpretive Data was last reviewed 2022. Benzodiazepines, ur Not Detected CutOff 100ng/mL [facility] Comment: Interpretive Data - Benzodiazepines: Samples containing greater than 100 ng/mL nordiazepam or other cross-reacting compounds are reported as positive. False positive and false negative results are possible. Confirmatory testing required for definitive results. Current Interpretive Data was last reviewed 2022. Cannabinoids, ur Not Detected CutOff 50 ng/mL [facility] Comment: Interpretive Data - Cannabinoids: Samples containing greater than 50 ng/mL delta-9 THC -COOH or other cross- reacting compounds are reported as positive. False positive and false negative results are possible. Confirmatory testing required for definitive results. Current Interpretive Data was last reviewed 2022. Cocaine, ur Not Detected CutOff 150ng/mL [facility] Comment: Interpretive Data - Cocaine: Samples containing greater than 150 ng/mL benzoylecgonine or other cross- reacting compounds are reported as positive. False positive and false negative results are possible. Confirmatory testing required for definitive results. Current Interpretive Data was last reviewed 2022. Fentanyl, Ur Not Detected CutOff 5 ng/mL [facility] Comment: Interpretive Data - Fentanyl: Samples containing greater than 5 ng/mL norfentanyl, fentanyl, or other cross-reacting fentanyl compounds are reported as positive. False positive and false negative results are possible. Confirmatory testing required for definitive results. Current Interpretive Data was last reviewed 2023. Methadone, ur Not Detected CutOff 300ng/mL [facility] Comment: Interpretive Data - Methadone: Samples containing greater than 300 ng/mL d,l-methadone or other cross-reacting compounds are reported as positive. False positive and false negative results are possible. Confirmatory testing required for definitive results. Current Interpretive Data was last reviewed 2022. Opiates, ur Not Detected CutOff 300ng/mL [facility] Comment: Interpretive Data - Opiates: Samples containing greater than 300 ng/mL morphine or other cross-reacting compounds are reported as positive. False positive and false negative results are possible. Confirmatory testing required for definitive results. Current Interpretive Data was last reviewed 2022. Oxycodone, ur Not Detected CutOff 100ng/mL [facility] Comment: Interpretive Data - Oxycodone: Samples containing greater than 100 ng/mL oxycodone or other cross-reacting compounds are reported as positive. False positive and false negative results are possible. Confirmatory testing required for definitive results. Current Interpretive Data was last reviewed 2022. Phencyclidine, ur Not Detected CutOff 25 ng/mL [facility] Comment: Interpretive Data - Phencyclidine: Samples containing greater than 25 ng/mL phencyclidine or other cross-reacting compounds are reported as positive. False positive and false negative results are possible. Confirmatory testing required for definitive results. Current Interpretive Data was last reviewed 2022. Urine Creatinine 10 mg/dL [facility] Comment: Interpretive Data Urine Creatinine: < 10 mg/dL is extremely dilute = or > 10 but < 20 mg/dL is dilute = or > 20 mg/dL is normal Current Interpretive Data was last revised on 2017. Urine 12/24/2024 7:28 PM CDT 12/24/2024 7:37 PM CDT Narrative [facility] ROJO - 12/24/2024 8:11 PM CDT Drug of Abuse screening is performed by immunoassay for medical purposes only. This is not to be used for Pain Management purposes. us Cl Trivedi MD LAB URINE ORDERABLE S Final Result [facility] [address] [facility] [place] [address] * CT Chest PE (CTA) W Contrast (12/24/2024 5:35 PM CDT) Anatomical Region Laterality Modality Body N/A Computed Tomogra phy 12/24/2024 5:45 PM CDT Narrative 12/24/2024 6:07 PM CDT EXAM DESCRIPTION: XR CHEST 1 VIEW; CT CHEST PE (CTA) W CONTRAST REASON FOR STUDY: chest pain BIBEMS from home with c/o chest pain x1 day. Reports pain radiates from left side down both arms. Reports bilateral arm numbness. States SOB with pain. States pain off and on. Reports increased bilateral leg swelling. Pt. States she has been drinking vodka since 10 a.m unsure how much. States she has been though withdraw in the past, denies seizures. Reports some chills and fevers, unknown temp. Hx. COPD, HTN, CHF ; Pulmonary embolism (PE) suspected, high prob TECHNIQUE: Frontal radiographic view(s) of the chest. Contiguous transaxial CT angiography of the chest is performed following uneventful intravenous administration of 100 mL Omnipaque 350. Coronal and sagittal reconstructions generated reviewed. In addition, three-dimensional MIP reconstructions generated and reviewed. Automated exposure control was utilized part cystic hemorrhage COMPARISON: 12/01/2024, 12/24/2024 , 10/16/2019 FINDINGS: Chest radiograph: LUNGS: Mild bibasilar scarring and mild atelectasis. No focal pulmonary parenchymal consolidation, pleural effusion, or pneumothorax. HEART/MEDIASTINUM: Cardiac silhouette normal in size. Eventration of the right hemidiaphragm. Mildly tortuous thoracic aorta mediastinal and hilar contours are otherwise normal. LINES/TUBES: None. BONES: No acute osseous abnormality. Chest CT: No CT evidence of pulmonary embolism. Normal size of the main pulmonary arteries. No aortic aneurysm or aortic dissection. Heart size at the upper limits of normal. There is left ventricular hypertrophy. No pericardial effusion. No pneumomediastinum or mediastinal hematoma. The esophagus is normal. There is no supraclavicular, axillary, mediastinal, or hilar lymphadenopathy. Calcified mediastinal lymph nodes due to old healed granulomatous disease. No pleural effusion or pneumothorax. There is mild lingular and right middle lobe parenchymal scarring. Mild scattered subsegmental atelectasis. No pulmonary parenchymal consolidation or pulmonary edema. Mild bilateral bronchial wall thickening. Scattered regions of endobronchial mucous plugging are present. Imaged upper abdomen demonstrates mild focal fatty infiltration adjacent the hepatic falciform ligament. Definitive discrete abnormality in the imaged upper abdomen. Bone windows demonstrate no acute fractures or aggressive bone lesions. Multilevel chronic compression fractures of the thoracic vertebral column. There is diffuse osteopenia. IMPRESSION: 1. No CT evidence of pulmonary embolism. 2. No pulmonary parenchymal consolidation or pulmonary edema. THIS IS AN ELECTRONICALLY VERIFIED FINAL REPORT 12/24/2024 6:07 PM - Electronically signed by Radha Yanez M.D. AT T: Report ID: [id number] Reading Location: [id number] Procedure Note Radha Yanez MD - 12/24/2024 EXAM DESCRIPTION: XR CHEST 1 VIEW; CT CHEST PE (CTA) W CONTRAST REASON FOR STUDY: chest pain BIBEMS from home with c/o chest pain x1 day. Reports pain radiates fromleft side down both arms. Reports bilateral arm numbness. States SOB withpain. States pain off and on. Reports increased bilateral leg swelling. Pt.States she has been drinking vodka since 10 a.m unsure how much. States she hasbeen though withdraw in the past, denies seizures. Reports some chills andfevers, unknown temp. Hx. COPD, HTN, CHF ; Pulmonary embolism (PE) suspected,high prob TECHNIQUE: Frontal radiographic view(s) of the chest. Contiguous transaxial CT angiography of the chest is performed following uneventful intravenous administration of 100 mL Omnipaque 350. Coronaland sagittal reconstructions generated reviewed. In addition,three-dimensional MIP reconstructions generated and reviewed. Automated exposure controlwas utilized part cystic hemorrhage COMPARISON: 12/01/2024, 12/24/2024 , 10/16/2019 FINDINGS: Chest radiograph: LUNGS: Mild bibasilar scarring and mild atelectasis. No focal pulmonary parenchymal consolidation, pleural effusion, or pneumothorax. HEART/MEDIASTINUM: Cardiac silhouette normal in size. Eventration of the right hemidiaphragm. Mildly tortuous thoracic aorta mediastinal and hilar contours are otherwise normal. LINES/TUBES: None. BONES: No acute osseous abnormality. Chest CT: No CT evidence of pulmonary embolism. Normal size of the main pulmonary arteries. No aortic aneurysm or aortic dissection. Heart size at the upper limits of normal. There is left ventricular hypertrophy. No pericardial effusion. No pneumomediastinum or mediastinal hematoma. The esophagus is normal. There is no supraclavicular, axillary, mediastinal, or hilarlymphadenopathy. Calcified mediastinal lymph nodes due to old healed granulomatous disease. No pleural effusion or pneumothorax. There is mild lingular and right middle lobe parenchymal scarring. Mild scattered subsegmental atelectasis. No pulmonary parenchymalconsolidation or pulmonary edema. Mild bilateral bronchial wall thickening. Scatteredregions of endobronchial mucous plugging are present. Imaged upper abdomen demonstrates mild focal fatty infiltration adjacentthe hepatic falciform ligament. Definitive discrete abnormality in the imaged upper abdomen. Bone windows demonstrate no acute fractures or aggressive bone lesions. Multilevel chronic compression fractures of the thoracic vertebral column. There is diffuse osteopenia. IMPRESSION: 1. No CT evidence of pulmonary embolism. 2. No pulmonary parenchymal consolidation or pulmonary edema. THIS IS AN ELECTRONICALLY VERIFIED FINAL REPORT 12/24/2024 6:07 PM - Electronically signed by Radha Yanez M.D. AT T: Report ID: [id number] Reading Location: [id number] Cl Trivedi MD IM CT PROCEDURES F inal Result * (ABNORMAL) Troponin T high-sensitivity 2-hour (12/24/2024 5:19 PM CDT) Trop T hs 54(H) <=14 ng/L Comment: Interpretive Data For further hscTnT resources including the diagnostic algorithm and an aid in interpretation, copy and paste this link: https://nrl.testcatalog.org/show/hsTrop Current Interpretive Data last revised 2020. Trop T hs delta -2 ng/L W[facility]AM ROJO Trop T hs interp Insignificant [facility]AM Blood 12/24/2024 5:19 PM CDT 12/24/2024 5:25 PM CDT us Cl Trivedi MD LAB BLOOD ORDERABLE S Final Result W[facility]AM [address] [facility] [place] [address] * Blood culture Blood Peripheral (12/24/2024 5:11 PM CDT) Report Final Report: No growth Comment:Testing performed by : [facility], [address] [facility] [place]., [address] Blood (Peripheral) 12/24/2024 5:11 PM CDT 12/24/2024 8:13 PM CDT Narrative WISAM - 12/29/2024 7:00 AM CDT From a different site than #1. Draw Blood cultures before administration of Antibiotics Collection->Peripheral 1. Blood cultures are incubated for 4 days on a continuously monitored blood culture system. The first report of a negative culture is issued within 24 hours of receipt of the specimen in the laboratory. 2. Positive culture results are reported as soon as they are detected. 3. The most important factor for detection of microbes in the setting of bloodstream infection is the volume of blood submitted for culture. Failure to collect an optimal blood volume can result in false negative blood cultures. 4. For pediatric patients, the recommended blood volume to collect follows a weight based strategy. See the electronic test catalog for collection instructions. 5. For positive blood cultures, a rapid molecular test may be performed for organism identification using the hima ePlex blood culture identification panel for gram positive (BCID-GP) and gram negative (BCID-GN) organisms. This nucleic acid amplification test detects microbial DNA in positive blood culture broth. This assay has been cleared by the [place] Food and Drug Administration and its performance characteristics have been verified by the [facility] Microbiology Laboratory. For questions about this culture, contact the Microbiology Laboratory at [phone]. Interpretive data was last revised on 24. Cl Trivedi MD LAB MICROBIOLOGY - GENERAL ORDERABLES Final Result Performing Organization Address [facility] Co de Phone Number WISAM [address] [address] * (ABNORMAL) Sepsis Lactate w/ Reflex (12/24/2024 5:02 PM CDT) Sepsis Lactate 3.7(H) 0.7 - 2.0 mmol/L Blood 12/24/2024 5:02 PM CDT 12/24/2024 5:24 PM CDT Cl Trivedi MD LAB BLOOD ORDERABLE S Final Result Performing Organization Address [facility] de Phone Number [address] [address] * Blood culture Blood Peripheral (12/24/2024 5:02 PM CDT) Pathologist [facility] Report Final Report: No growth Comment:Testing performed by : [facility], [address] [place]., [address] Blood (Peripheral) 12/24/2024 5:02 PM CDT 12/24/2024 8:13 PM CDT Narrative WISAM - 12/29/2024 7:00 AM CDT Draw Blood cultures before administration of Antibiotics Collection->Peripheral 1. Blood cultures are incubated for 4 days on a continuously monitored blood culture system. The first report of a negative culture is issued within 24 hours of receipt of the specimen in the laboratory. 2. Positive culture results are reported as soon as they are detected. 3. The most important factor for detection of microbes in the setting of bloodstream infection is the volume of blood submitted for culture. Failure to collect an optimal blood volume can result in false negative blood cultures. 4. For pediatric patients, the recommended blood volume to collect follows a weight based strategy. See the electronic test catalog for collection instructions. 5. For positive blood cultures, a rapid molecular test may be performed for organism identification using the hima ePlex blood culture identification panel for gram positive (BCID-GP) and gram negative (BCID-GN) organisms. This nucleic acid amplification test detects microbial DNA in positive blood culture broth. This assay has been cleared by the [place] Food and Drug Administration and its performance characteristics have been verified by the [facility] Microbiology Laboratory. For questions about this culture, contact the Microbiology Laboratory at [phone]. Interpretive data was last revised on 24. us Cl Trivedi MD LAB MICROBIOLOGY - GENERAL ORDERABLES Final Result [facility] [facility] [place] [address] * XR Chest 1 Vw Portable (12/24/2024 4:18 PM CDT) Anatomical Region Laterality Modality Body, Chest N/A Computed Radiogr aphy 12/24/2024 5:45 PM CDT Narrative 12/24/2024 6:07 PM CDT EXAM DESCRIPTION: XR CHEST 1 VIEW; CT CHEST PE (CTA) W CONTRAST REASON FOR STUDY: chest pain BIBEMS from home with c/o chest pain x1 day. Reports pain radiates from left side down both arms. Reports bilateral arm numbness. States SOB with pain. States pain off and on. Reports increased bilateral leg swelling. Pt. States she has been drinking vodka since 10 a.m unsure how much. States she has been though withdraw in the past, denies seizures. Reports some chills and fevers, unknown temp. Hx. COPD, HTN, CHF ; Pulmonary embolism (PE) suspected, high prob TECHNIQUE: Frontal radiographic view(s) of the chest. Contiguous transaxial CT angiography of the chest is performed following uneventful intravenous administration of 100 mL Omnipaque 350. Coronal and sagittal reconstructions generated reviewed. In addition, three-dimensional MIP reconstructions generated and reviewed. Automated exposure control was utilized part cystic hemorrhage COMPARISON: 12/01/2024, 12/24/2024 , 10/16/2019 FINDINGS: Chest radiograph: LUNGS: Mild bibasilar scarring and mild atelectasis. No focal pulmonary parenchymal consolidation, pleural effusion, or pneumothorax. HEART/MEDIASTINUM: Cardiac silhouette normal in size. Eventration of the right hemidiaphragm. Mildly tortuous thoracic aorta mediastinal and hilar contours are otherwise normal. LINES/TUBES: None. BONES: No acute osseous abnormality. Chest CT: No CT evidence of pulmonary embolism. Normal size of the main pulmonary arteries. No aortic aneurysm or aortic dissection. Heart size at the upper limits of normal. There is left ventricular hypertrophy. No pericardial effusion. No pneumomediastinum or mediastinal hematoma. The esophagus is normal. There is no supraclavicular, axillary, mediastinal, or hilar lymphadenopathy. Calcified mediastinal lymph nodes due to old healed granulomatous disease. No pleural effusion or pneumothorax. There is mild lingular and right middle lobe parenchymal scarring. Mild scattered subsegmental atelectasis. No pulmonary parenchymal consolidation or pulmonary edema. Mild bilateral bronchial wall thickening. Scattered regions of endobronchial mucous plugging are present. Imaged upper abdomen demonstrates mild focal fatty infiltration adjacent the hepatic falciform ligament. Definitive discrete abnormality in the imaged upper abdomen. Bone windows demonstrate no acute fractures or aggressive bone lesions. Multilevel chronic compression fractures of the thoracic vertebral column. There is diffuse osteopenia. IMPRESSION: 1. No CT evidence of pulmonary embolism. 2. No pulmonary parenchymal consolidation or pulmonary edema. THIS IS AN ELECTRONICALLY VERIFIED FINAL REPORT 12/24/2024 6:07 PM - Electronically signed by Radha Yanez M.D. AT T: Report ID: [id number] Reading Location: [id number] Procedure Note Radha Yanez MD - 12/24/2024 EXAM DESCRIPTION: XR CHEST 1 VIEW; CT CHEST PE (CTA) W CONTRAST REASON FOR STUDY: chest pain BIBEMS from home with c/o chest pain x1 day. Reports pain radiates fromleft side down both arms. Reports bilateral arm numbness. States SOB withpain. States pain off and on. Reports increased bilateral leg swelling. Pt.States she has been drinking vodka since 10 a.m unsure how much. States she hasbeen though withdraw in the past, denies seizures. Reports some chills andfevers, unknown temp. Hx. COPD, HTN, CHF ; Pulmonary embolism (PE) suspected,high prob TECHNIQUE: Frontal radiographic view(s) of the chest. Contiguous transaxial CT angiography of the chest is performed following uneventful intravenous administration of 100 mL Omnipaque 350. Coronaland sagittal reconstructions generated reviewed. In addition,three-dimensional MIP reconstructions generated and reviewed. Automated exposure controlwas utilized part cystic hemorrhage COMPARISON: 12/01/2024, 12/24/2024 , 10/16/2019 FINDINGS: Chest radiograph: LUNGS: Mild bibasilar scarring and mild atelectasis. No focal pulmonary parenchymal consolidation, pleural effusion, or pneumothorax. HEART/MEDIASTINUM: Cardiac silhouette normal in size. Eventration of the right hemidiaphragm. Mildly tortuous thoracic aorta mediastinal and hilar contours are otherwise normal. LINES/TUBES: None. BONES: No acute osseous abnormality. Chest CT: No CT evidence of pulmonary embolism. Normal size of the main pulmonary arteries. No aortic aneurysm or aortic dissection. Heart size at the upper limits of normal. There is left ventricular hypertrophy. No pericardial effusion. No pneumomediastinum or mediastinal hematoma. The esophagus is normal. There is no supraclavicular, axillary, mediastinal, or hilarlymphadenopathy. Calcified mediastinal lymph nodes due to old healed granulomatous disease. No pleural effusion or pneumothorax. There is mild lingular and right middle lobe parenchymal scarring. Mild scattered subsegmental atelectasis. No pulmonary parenchymalconsolidation or pulmonary edema. Mild bilateral bronchial wall thickening. Scatteredregions of endobronchial mucous plugging are present. Imaged upper abdomen demonstrates mild focal fatty infiltration adjacentthe hepatic falciform ligament. Definitive discrete abnormality in the imaged upper abdomen. Bone windows demonstrate no acute fractures or aggressive bone lesions. Multilevel chronic compression fractures of the thoracic vertebral column. There is diffuse osteopenia. IMPRESSION: 1. No CT evidence of pulmonary embolism. 2. No pulmonary parenchymal consolidation or pulmonary edema. THIS IS AN ELECTRONICALLY VERIFIED FINAL REPORT 12/24/2024 6:07 PM - Electronically signed by Radha MedellinD. AT T: Report ID: [id number] Reading Location: [id number] us Cl Trivedi MD IMG XR PROCEDURES F inal Result * (ABNORMAL) Troponin T high-sensitivity series (baseline, 2hr, 4hr, 6hr) (12/24/2024 3:46 PM CDT) Pathologist [facility] Trop T hs 56(H) <=14 ng/L Comment: Interpretive Data For further hscTnT resources including the diagnostic algorithm and an aid in interpretation, copy and paste this link: https://nrl.testcatalog.org/show/hsTrop Current Interpretive Data last revised 2020. Blood 12/24/2024 3:46 PM CDT 12/24/2024 3:49 PM CDT us Cl Trivedi MD LAB BLOOD ORDERABLE S Final Result [facility] [address] [facility] [place] [address] * Influenza A/B, RSV, and COVID-19 PCR Nasopharyngeal (12/24/2024 3:46 PM CDT) [facility] COVID-19 RNA Negative Negative Influenza A RNA Negative Negative [facility] Influenza B RNA Negative Negative [facility] RSV RNA Negative Negative [facility] Comment: Interpretive data: Testing performed by [facility]. This test is performed using the [employer] Xpert Xpress CoV-2/Flu/RSV plus assay. This is a multiplex, real-time reverse transcriptase PCR assay intended for the qualitative detection of nucleic acid from SARS-CoV-2, influenza A, influenza B, and respiratory syncytial virus. This assay has been cleared by the [place] Food and Drug administration. The performance characteristics have been verified by the [facility]. Results must be considered in the clinical context, and a negative result does not rule out infection. Interpretive Data last revised 2023 Nasopharyngeal 12/24/2024 3: 46 PM CDT 12/24/2024 3:48 PM CDT Narrative WISAM - 12/24/2024 4:33 PM CDT Is the Patient experiencing symptoms consistent with COVID?->Yes Cl Trivedi MD LAB MICROBIOLOGY - GENERAL ORDERABLES Final Result Performing Organization Address City/[facility]/ZIP Co de Phone Number WISAM [address] [place] [address] * eGFR (12/24/2024 3:46 PM CDT) eGFR 82 >=60 mL/min/1. 73 m2 Comment: Interpretive Data Reference Interval Normal >/= 90 mL/min/1.73m2 Mildly decreased* 60 - 89 mL/min/1.73m2 Mildly to moderately decreased 45 - 59 mL/min/1.73m2 Moderately to severely decreased 30 - 44 mL/min/1.73m2 Severely decreased 15 - 29 mL/min/1.73m2 Kidney Failure < 15 mL/min/1.73m2 *Relative to young adult level Estimated glomerular filtration rate is determined by the 2020 CKD-EPI equation recommended by the National Kidney Foundation (A Unifying Approach to GFR Estimation: Recommendations of the NKF-ASK Task Force on Reassessing the Inclusion of Race in Diagnosing Kidney Disease, JASN 2020). The CKD-EPI equation should not be used for patients with unstable renal function and has not been validated in children and those over 70. Current interpretive data was last reviewed 2021. Blood 12/24/2024 3:46 PM CDT 12/24/2024 3:49 PM CDT Cl Trivedi MD LAB BLOOD ORDERABLE S Final Result WISAM [address] [place] [address] * Pro B-type natriuretic peptide (12/24/2024 3:46 PM CDT) NT-proBNP 243 <=300 pg/mL Comment: Interpretive Comments: A. Dyspnea in Acute Care Setting All Ages: < 300 pg/ml, acute heart failure unlikely. < 50 yrs: 300 - 450 pg/ml, further investigation warranted. > 450 pg/ml, acute heart failure likely. 50 - 74 yrs: 300 - 900 pg/ml, further investigation warranted. > 900 pg/ml, acute heart failure likely . > or = 75 yrs: 450 - 1800 pg/ml, further investigation warranted. > 1800 pg/ml, acute heart failure likely. B. Non-acute Setting < 75 yrs < 125 pg/ml, rules out heart failure. > or = 125 pg/ml, further investigation warranted. > or = 75 yrs < 450 pg/ml, rules out heart failure. > or = 450 pg/ml, further investigation warranted. - Knowledge of each individual patient's NT-proBNP range may be more useful than using similar cut-points for every patient. Please note that marked elevations in NT-proBNP levels may be observed in state other than Left Ventricular Congestive Failure, including: acute coronary syndromes, right heart strain/failure (including pulmonary embolism and cor pulmonale), critical illness, renal failure, as well as advanced age. - References: 1. Dat CARRERA et.al. Eur Heart J. 2006:27:330-337. 2. Cj RW, Cyndi AM. J. AM Aruna Cardiol: Cardiovasc Imag. 2009;2: 216- 225. Interpretive Data Last Revised Date: 2017. Blood 12/24/2024 3:46 PM CDT 12/24/2024 3:49 PM CDT us Cl Trivedi MD LAB BLOOD ORDERABLE S Final Result [facility] [address] [facility] [place] [address] * (ABNORMAL) CBC with auto differential (12/24/2024 3:46 PM CDT) Pathologist [facility] WBC 20.02(H) 3.80 - 9.90 K/cumm Hgb 10.3(L) 11.9 - 15.5 g/dL [facility] Hct 32.8(L) 35.6 - 45.5 % [facility] Plt 234 150 - 400 K/cumm [facility] MPV 9.5 9.1 - 12.3 fL [facility] RBC 3.54(L) 3.90 - 5.20 M/cumm [facility] MCV 92.7 81.3 - 96.4 fL [facility] MCH 29.1 27.1 - 33.3 pg [facility] MCHC 31.4(L) 32.3 - 35.7 g/dL [facility] RDW CV 18.2(H) 11.1 - 14.9 % [facility] RDW SD 62.4(H) 35.7 - 48.1 fL [facility] NRBC abs 0.00 0.00 - 0.01 K/cumm [facility] Blood 12/24/2024 3:46 PM CDT 12/24/2024 3:49 PM CDT Cl Trivedi MD LAB BLOOD ORDERABLE S Edited Result - Final [facility] [address] [facility] Department of Laboratories [place], [place] [id number] * (ABNORMAL) Manual Differential (12/24/2024 3:46 PM CDT) Differential Manual Cells Counted 100 [facility] Neutrophil abs 15.02(H) 1.50 - 6.50 K/cumm [facility] Lymphocyte abs 3.80(H) 0.80 - 3.30 K/cumm [facility] Monocyte abs 1.00(H) 0.20 - 0.80 K/cumm [facility] Basophil abs 0.20(H) 0.00 - 0.10 K/cumm [facility] Neutrophil pct 75.0 % [facility] Comment: Interpretive Data Percent cell count reference ranges are not reported, since discordance with absolute values may lead to misinterpretation of CBC data. Current Interpretive Data was last revised on 2017. Lymphocyte pct 19.0 % [facility] Comment: Interpretive Data Percent cell count reference ranges are not reported, since discordance with absolute values may lead to misinterpretation of CBC data. Current Interpretive Data was last revised on 2017. Monocyte pct 5.0 % [facility] Comment: Interpretive Data Percent cell count reference ranges are not reported, since discordance with absolute values may lead to misinterpretation of CBC data. Current Interpretive Data was last revised on 2017. Basophil pct 1.0 % [facility] Comment: Interpretive Data Percent cell count reference ranges are not reported, since discordance with absolute values may lead to misinterpretation of CBC data. Current Interpretive Data was last revised on 2017. RBC morphology Consistent with RBC Indicies [facility] Platelet estimate Automated Count Confirmed [facility] Blood 12/24/2024 3:46 PM CDT 12/24/2024 3:49 PM CDT Cl Trivedi MD LAB BLOOD ORDERABLE S Final Result Performing Organization Address [facility] Co de Phone Number [address] [place] [address] * (ABNORMAL) Ethanol (12/24/2024 3:46 PM CDT) Ethanol 275(H) <=10 mg/dL Comment: Interpretive Data Legal limit of intoxication > or = 80 mg/dL Levels > or = 400 mg/dL are potentially TOXIC. Current interpretive data was last revised on 2018. Blood 12/24/2024 3:46 PM CDT 12/24/2024 3:49 PM CDT us Cl Trivedi MD LAB BLOOD ORDERABLE S Final Result Performing Organization Address [facility] Co de Phone Number [address] [place] [address] * (ABNORMAL) Comprehensive metabolic panel (12/24/2024 3:46 PM CDT) Sodium 139 135 - 145 mmol/L Potassium, pl 3.9 3.3 - 4.9 mmol/L [facility]AM Comment:Hemolyzed; Potassium value may be falsely elevated by as much as 1.0 mmol/L. Suggest redraw and reanalysis. Chloride 100 97 - 110 mmol/L [facility] CO2 21(L) 22 - 32 mmol/L [facility] Anion gap 18(H) 2 - 15 mmol/L [facility] BUN 10 6 - 25 mg/dL [facility] Creatinine 0.84 0.60 - 1.10 mg/dL [facility] Glucose 82 70 - 199 mg/dL [facility] Comment: Interpretive Data Fasting glucose >/= 126 mg/dl is diagnostic for diabetes. Fasting is defined as no caloric intake for at least 8 hours. Fasting glucose between 100 mg/dl to 125 mg/dl is diagnostic of prediabetes. In a patient with classic symptoms of hyperglycemia or hyperglycemic crisis, a random glucose >/= 200 mg/dl is diagnostic for diabetes. In the absence of unequivocal hyperglycemia, results should be confirmed by repeat testing. The classification and Diagnosis of Diabetes Diabetes Care 2021; 46: S19-S40. Current interpretive data was last revised 2022. Calcium 8.2(L) 8.5 - 10.3 mg/dL [facility] Bilirubin, total 0.5 0.1 - 1.2 mg/dL [facility] Protein, pl 6.0(L) 6.5 - 8.5 g/dL [facility] Albumin 3.4(L) 3.5 - 5.0 g/dL [facility] Alk phos 71 40 - 130 Units/L [facility] ALT 14 7 - 45 Units/L [facility] AST 24 10 - 45 Units/L [facility] Comment:Hemolyzed; result ma y be falsely elevated Blood 12/24/2024 3:46 PM CDT 12/24/2024 3:49 PM CDT us Cl Trivedi MD LAB BLOOD ORDERABLE S Final Result [facility] [address] [facility] [place] [address] * ECG 12 lead (12/24/2024 3:39 PM CDT) Pathologist [facility] Ventricular Rate EKG/Min 99 BPM [facility] Atrial Rate 99 BPM [facility] [place]-Interval (MSEC) 138 ms [facility] QRS-Interval (MSEC) 88 ms [facility] QT-Interval (MSEC) 374 ms [facility] QTc 479 ms [facility] P [place] 45 degrees [facility] R [place] 66 degrees [facility] T [place] 72 degrees [facility] Diagnosis Normal sinus rhythm Normal ECG When compared with ECG of 01-DEC-2024 22:07, No significant change was found Confirmed by SULTAN MORGAN M.D. ([id number]) on 12/24/2024 8:26:20 PM [facility] 12/24/2024 3:39 PM CDT 12/24/2024 8:26 PM CDT us Cl Trivedi MD ECG ORDERABLES Fin al Result Performing Organization Address [facility] Co de Phone Number [facility] * (ABNORMAL) Troponin T high-sensitivity 4-hour (12/02/2024 2:23 AM CDT) Trop T hs 40(H) <=14 ng/L Comment: Interpretive Data For further hscTnT resources including the diagnostic algorithm and an aid in interpretation, copy and paste this link: https://nrl.testcatalog.org/show/hsTrop Current Interpretive Data last revised 2020. Trop T hs delta -2 ng/L [facility] Trop T hs interp Insignificant [facility] Blood 12/02/2024 2:23 AM CDT 12/02/2024 2:25 AM CDT Kari SCANLON LAB BLOOD ORDERABLES Final Result Performing Organization Address City/[facility]/ZIP Co de Phone Number WISAM [address] [facility] [place] [address] * (ABNORMAL) Ethanol (12/02/2024 2:23 AM CDT) Ethanol 167(H) <=10 mg/dL Comment: Interpretive Data Legal limit of intoxication > or = 80 mg/dL Levels > or = 400 mg/dL are potentially TOXIC. Current interpretive data was last revised on 2018. Blood 12/02/2024 2:23 AM CDT 12/02/2024 2:25 AM CDT us Zhao Macias MD LAB BLOOD ORDERABLES Final Result [facility] [address] [facility] [place] [address] * XR Chest 1 View (12/01/2024 11:58 PM CDT) Anatomical Region Laterality Modality Body, Chest N/A Computed Radiogr aphy 12/02/2024 12:2 5 AM CDT Narrative 12/02/2024 12:26 AM CDT EXAM DESCRIPTION: XR CHEST 1 VIEW REASON FOR STUDY: SOB Via ems from home. Pt reports she thinks she had food poisoning . Pt reports she had fried chicken and bratwurst that was given ti her by a neighbor; states she has been vomiting since last night and all day today. Pt reports she is also having some chills, fever and all over abd cramping. Pt reports she copd,chf, MS. Patient was placed on 2 L nasal cannula when her O2 saturation was seen dropping to 89%. Pt has hx of COPD and does not wear oxygen at home. TECHNIQUE: 1 radiographic view(s) of the chest. COMPARISON: 11/19/2024 FINDINGS: LUNGS: No focal opacity, pleural effusion, or pneumothorax. Atelectatic changes at the lung bases. HEART/MEDIASTINUM: Cardiac silhouette normal in size. Mediastinal and hilar contours appear normal. LINES/TUBES: None. BONES: No acute osseous abnormality. IMPRESSION: No acute cardiopulmonary abnormality. THIS IS AN ELECTRONICALLY VERIFIED FINAL REPORT 12/02/2024 12:26 AM - Electronically signed by Ja Antonio M.D. KT T: Report ID: [id number] Reading Location: [id number] Procedure Note Ja Antonio MD - 09/22/2025 EXAM DESCRIPTION: XR CHEST 1 VIEW REASON FOR STUDY: SOB Via ems from home. Pt reports she thinks she had food poisoning . Ptreports she had fried chicken and bratwurst that was given ti her by a neighbor; states she has been vomiting since last night and all day today. Ptreports she is also having some chills, fever and all over abd cramping. Ptreports she copd,chf, MS. Patient was placed on 2 L nasal cannula when her O2 saturation was seen dropping to 89%. Pt has hx of COPD and does not wear oxygen at home. TECHNIQUE: 1 radiographic view(s) of the chest. COMPARISON: 11/19/2024 FINDINGS: LUNGS: No focal opacity, pleural effusion, or pneumothorax. Atelectatic changes at the lung bases. HEART/MEDIASTINUM: Cardiac silhouette normal in size. Mediastinal andhilar contours appear normal. LINES/TUBES: None. BONES: No acute osseous abnormality. IMPRESSION: No acute cardiopulmonary abnormality. THIS IS AN ELECTRONICALLY VERIFIED FINAL REPORT 12/02/2024 12:26 AM - Electronically signed by Ja Antonio M.D. KT T: Report ID: [id number] Reading Location: [place] [address] us Zhao Macias MD IMG XR PROCEDURES Final Re sult * CT Abdomen Pelvis W Contrast (12/01/2024 11:50 PM CDT) Anatomical Region Laterality Modality Body N/A Computed Tomogra phy 12/01/2024 11:5 7 PM CDT Narrative 12/02/2024 12:07 AM CDT EXAM DESCRIPTION: CT ABDOMEN PELVIS W CONTRAST REASON FOR STUDY: Abdominal pain, acute, nonlocalized Via ems from home. Pt reports he thinks she had food poisoning . Pt reports she had fried chicken and bratwurst that was given ti her by a neighbor. Pt reports she has been vomiting sine last night and all day today. Pt reports she is also having some chills, fever and all over abd cramping.Pt reports she copd,chf, MS. pT REPORTS SHE HAS BEEN sleeping all day. Patient was placed on 2 L nasal cannula when her O2 saturation was seen dropping to 89%. Pt has hx of COPD and does not wear oxygen at home. Past Medical History: Diagnosis Date Alcohol withdrawal syndrome without complication (HCC) 06/26/2024 Asthma CHF (congestive heart failure) (HCC) COPD (chronic obstructive pulmonary disease) Epilepsy (HCC) Hypertension KS (myocardial infarction) (HCC) Multiple sclerosis, primary chronic progressive (HCC) Pneumonia Seizure (HCC) Tachycardia 2022 Thyroid disease Surg: colon, ablation, TECHNIQUE: CT scan of the abdomen and pelvis performed with intravenous and without oral contrast using helical scanning technique with dynamic intravenous contrast injection. Reconstructed coronal and sagittal MPR images reviewed. All images stored on PACS. Automated exposure control was used as a dose optimization technique for this examination. CONTRAST TYPE/DOSE: 92mL of IOVERSOL 350 MG IODINE/ML INTRAVENOUS SYRINGE injected via intravenous COMPARISON: 10/15/2024 FINDINGS: LOWER CHEST: No significant pulmonary abnormalities. No effusion. LIVER: Decreased attenuation as seen with fibrofatty changes. GALLBLADDER: No stones identified. No wall thickening or inflammatory changes. BILE DUCTS: No intrahepatic or extrahepatic ductal dilatation. SPLEEN: Normal size. No focal lesions. PANCREAS: No identified cystic or solid masses. No significant calcifications. No adjacent inflammation or peripancreatic fluid collections. Pancreatic duct not dilated. ADRENALS: Normal. KIDNEYS/URINARY TRACT: No identified significant cystic or solid masses. No visualized stones. No hydronephrosis or hydroureter. Symmetric enhancement. Urinary bladder is unremarkable. 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 No evidence of bowel obstruction. Diverticulosis with no evidence of diverticulitis. There is some thickening of the wall of the 1st and 2nd portions of the duodenum with some stranding in the surrounding fat. Correlate clinically for duodenitis. PERITONEUM: No ascites or free air. RETROPERITONEUM: No mass or adenopathy. REPRODUCTIVE: No significant abnormality. VASCULATURE: No abdominal aortic aneurysm. MUSCULOSKELETAL: Avascular necrosis involving bilateral femoral heads. OTHER: No other abnormality. IMPRESSION: 1. There is some thickening of the wall of the 1st and 2nd portions of the duodenum with some stranding in the surrounding fat. Correlate clinically for duodenitis. 2. Fatty infiltration of the liver. 3. 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 No evidence of bowel obstruction. 4. Diverticulosis. No evidence of diverticulitis. 5. Avascular necrosis involving bilateral femoral heads. THIS IS AN ELECTRONICALLY VERIFIED FINAL REPORT 12/02/2024 12:07 AM - Electronically signed by Ja Antonio M.D. KT T: Report ID: [id number] Reading Location: [place] [address] Procedure Note Ja Antonio MD - 12/02/2024 EXAM DESCRIPTION: CT ABDOMEN PELVIS W CONTRAST REASON FOR STUDY: Abdominal pain, acute, nonlocalized Via ems from home. Pt reports he thinks she had food poisoning . Ptreports she had fried chicken and bratwurst that was given ti her by a neighbor.Pt reports she has been vomiting sine last night and all day today. Ptreports she is also having some chills, fever and all over abd cramping.Ptreports she copd,chf, MS. pT REPORTS SHE HAS BEEN sleeping all day. Patientwas placed on 2 L nasal cannula when her O2 saturation was seen dropping to89%. Pt has hx of COPD and does not wear oxygen at home. Past MedicalHistory: Diagnosis Date Alcohol withdrawal syndrome without complication (HCC) 06/26/2024 Asthma CHF (congestive heart failure) (HCC) COPD (chronic obstructive pulmonary disease) Epilepsy (HCC)Hypertension [place] (myocardial infarction) (HCC) Multiple sclerosis, primarychronic progressive (HCC) Pneumonia Seizure (HCC) Tachycardia 2022 Thyroid disease Surg: colon, ablation, TECHNIQUE: CT scan of the abdomen and pelvis performed with intravenousand without oral contrast using helical scanning technique with dynamic intravenous contrast injection. Reconstructed coronal and sagittal MPRimages reviewed. All images stored on PACS. Automated exposure control was usedas a dose optimization technique for this examination. CONTRAST TYPE/DOSE: 92mL of IOVERSOL 350 MG IODINE/ML INTRAVENOUSSYRINGE injected via intravenous COMPARISON: 10/15/2024 FINDINGS: LOWER CHEST: No significant pulmonary abnormalities. Noeffusion. LIVER: Decreased attenuation as seen with fibrofatty changes. GALLBLADDER: No stones identified. No wall thickening or inflammatory changes. BILE DUCTS: No intrahepatic or extrahepatic ductal dilatation. SPLEEN: Normal size. No focal lesions. PANCREAS: No identified cystic or solid masses. No significant calcifications. No adjacent inflammation or peripancreatic fluidcollections. Pancreatic duct not dilated. ADRENALS: Normal. KIDNEYS/URINARY TRACT: No identified significant cystic or solid masses.No visualized stones. No hydronephrosis or hydroureter. Symmetricenhancement. Urinary bladder is unremarkable. 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 No evidenceof bowel obstruction. Diverticulosis with no evidence of diverticulitis.There is some thickening of the wall of the 1st and 2nd portions of the duodenum with some stranding in the surrounding fat. Correlate clinically for duodenitis. PERITONEUM: No ascites or free air. RETROPERITONEUM: No mass or adenopathy. REPRODUCTIVE: No significant abnormality. VASCULATURE: No abdominal aortic aneurysm. MUSCULOSKELETAL: Avascular necrosis involving bilateral femoral heads. OTHER: No other abnormality. IMPRESSION: 1. There is some thickening of the wall of the 1st and 2nd portions ofthe duodenum with some stranding in the surrounding fat. Correlate clinicallyfor duodenitis. 2. Fatty infiltration of the liver. 3. 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 No evidence of bowel obstruction. 4. Diverticulosis. No evidence of diverticulitis. 5. Avascular necrosis involving bilateral femoral heads. THIS IS AN ELECTRONICALLY VERIFIED FINAL REPORT 12/02/2024 12:07 AM - Electronically signed by Ja Antonio M.D. KT T: Report ID: [id number] Reading Location: [place] [address] us Zhao Macias MD IMG CT PROCEDURES Final Re sult * ECG 12 lead (12/01/2024 10:07 PM CDT) Ventricular Rate EKG/Min 104 BPM [facility] Atrial Rate 104 BPM [facility] [place]-Interval (MSEC) 142 ms [facility] QRS-Interval (MSEC) 92 ms [facility] QT-Interval (MSEC) 368 ms [facility] QTc 483 ms [facility] P [place] 51 degrees [facility] R [place] 51 degrees [facility] T [place] 65 degrees [facility] Diagnosis Sinus tachycardia Low voltage QRS Cannot rule out Anterior infarct (cited on or before 01-DEC-2024) ST elevation, consider early repolarization , pericarditis, vs injury Abnormal ECG When compared with ECG of 19-NOV-2024 10:55, No significant change was found Reconfirmed by KANDULA M.D., AQUINO ([id number]) on 12/02/2024 6:07:00 PM [facility] 12/01/2024 10:0 7 PM CDT 12/02/2024 6:07 PM CDT Zhao Macias MD ECG ORDERABLES Edited Res ult - Final [facility] * Influenza A/B, RSV, and COVID-19 PCR Nasopharyngeal (12/01/2024 9:58 PM CDT) Pathologist [facility] COVID-19 RNA Negative Negative Influenza A RNA Negative Negative [facility] Influenza B RNA Negative Negative [facility] RSV RNA Negative Negative [facility] Comment: Interpretive data: Testing performed by [facility]. This test is performed using the [employer] Xpert Xpress CoV-2/Flu/RSV plus assay. This is a multiplex, real-time reverse transcriptase PCR assay intended for the qualitative detection of nucleic acid from SARS-CoV-2, influenza A, influenza B, and respiratory syncytial virus. This assay has been cleared by the [place] Food and Drug administration. The performance characteristics have been verified by the [facility]. Results must be considered in the clinical context, and a negative result does not rule out infection. Interpretive Data last revised 2023 Nasopharyngeal 12/01/2024 9: 58 PM CDT 12/01/2024 10:01 PM CDT Narrative [facility] - 12/01/2024 10:44 PM CDT Is the Patient experiencing symptoms consistent with COVID?->Yes [facility] MICROBIOLOGY - GENERAL ORDERABLES Final Result Performing Organization Address City/[facility]/ZIP Co de Phone Number [facility] [address] [facility] [place] [address] * (ABNORMAL) Troponin T high-sensitivity series (baseline, 2hr, 4hr, 6hr) (12/01/2024 9:51 PM CDT) Trop T hs 42(H) <=14 ng/L Comment: Interpretive Data For further hscTnT resources including the diagnostic algorithm and an aid in interpretation, copy and paste this link: [email or web address].testcatalog.org/show/[email or web address] Current Interpretive Data last revised 2020. Blood 12/01/2024 9:51 PM CDT 12/01/2024 9:54 PM CDT [facility] BLOOD ORDERABLES Final Result Performing Organization Address [facility] Co de Phone Number WISAM [address] [employer] [place], [place] [id number] * eGFR (12/01/2024 9:51 PM CDT) eGFR 75 >=60 mL/min/1. 73 m2 Comment: Interpretive Data Reference Interval Normal >/= 90 mL/min/1.73m2 Mildly decreased* 60 - 89 mL/min/1.73m2 Mildly to moderately decreased 45 - 59 mL/min/1.73m2 Moderately to severely decreased 30 - 44 mL/min/1.73m2 Severely decreased 15 - 29 mL/min/1.73m2 Kidney Failure < 15 mL/min/1.73m2 *Relative to young adult level Estimated glomerular filtration rate is determined by the 2020 CKD-EPI equation recommended by the National Kidney Foundation (A Unifying Approach to GFR Estimation: Recommendations of the NKF-ASK Task Force on Reassessing the Inclusion of Race in Diagnosing Kidney Disease, JASN 2020). The CKD-EPI equation should not be used for patients with unstable renal function and has not been validated in children and those over 70. Current interpretive data was last reviewed 2021. Blood 12/01/2024 9:51 PM CDT 12/01/2024 9:54 PM CDT [facility] BLOOD ORDERABLES Final Result Performing Organization Address City/[facility]/ZIP Co de Phone Number [facility] [address] [place] [address] * (ABNORMAL) CBC with auto differential (12/01/2024 9:51 PM CDT) [facility] WBC 7.80 3.80 - 9.90 K/cumm Hgb 10.3(L) 11.9 - 15.5 g/dL [facility] Hct 32.9(L) 35.6 - 45.5 % [facility] Plt 377 150 - 400 K/cumm [facility] MPV 9.3 9.1 - 12.3 fL [facility] RBC 3.66(L) 3.90 - 5.20 M/cumm [facility] MCV 89.9 81.3 - 96.4 fL [facility] MCH 28.1 27.1 - 33.3 pg [facility] MCHC 31.3(L) 32.3 - 35.7 g/dL [facility] RDW CV 17.1(H) 11.1 - 14.9 % [facility] RDW SD 56.1(H) 35.7 - 48.1 fL [facility] NRBC abs 0.00 0.00 - 0.01 K/cumm [facility] Blood Venous blood specimen / Unknown 12/01/2024 9:51 PM CDT 12/01/2024 9:54 PM CDT [facility] BLOOD ORDERABLES Edite d Result - Final [place] [id number] [facility] [place] [address] * (ABNORMAL) Manual Differential (12/01/2024 9:51 PM CDT) [facility] Differential Manual Cells Counted 100 [facility] Neutrophil abs 2.11 1.50 - 6.50 K/cumm [facility] Imm gran abs 0.08 0.00 - 0.10 K/cumm [facility] Lymphocyte abs 5.30(H) 0.80 - 3.30 K/cumm [facility] Monocyte abs 0.23 0.20 - 0.80 K/cumm [facility] Basophil abs 0.08 0.00 - 0.10 K/cumm [facility] Neutrophil pct 27.0 % [facility] Comment: Interpretive Data Percent cell count reference ranges are not reported, since discordance with absolute values may lead to misinterpretation of CBC data. Current Interpretive Data was last revised on 2017. Lymphocyte pct 65.0 % [facility] Comment: Interpretive Data Percent cell count reference ranges are not reported, since discordance with absolute values may lead to misinterpretation of CBC data. Current Interpretive Data was last revised on 2017. Monocyte pct 3.0 % [facility] Comment: Interpretive Data Percent cell count reference ranges are not reported, since discordance with absolute values may lead to misinterpretation of CBC data. Current Interpretive Data was last revised on 2017. Basophil pct 1.0 % [facility] Comment: Interpretive Data Percent cell count reference ranges are not reported, since discordance with absolute values may lead to misinterpretation of CBC data. Current Interpretive Data was last revised on 2017. Metamyelocyte pct 1.0(H) 0.0 - 0.0 % [facility] Variant lymph pct 3.0(H) 0.0 - 0.0 % [facility] RBC morphology Normal [facility] Platelet estimate Automated Count Confirmed [facility] Blood 12/01/2024 9:51 PM CDT 12/01/2024 9:54 PM CDT [facility] BLOOD ORDERABLES Final Result Performing Organization Address City/[facility]/ZIP Co de Phone Number [address] [place] [address] * Lipase (12/01/2024 9:51 PM CDT) Lipase 17 10 - 99 Units/L Blood Venous blood specimen / Unknown 12/01/2024 9:51 PM CDT 12/01/2024 9:54 PM CDT [facility] BLOOD ORDERABLES Final Result [address] [place] [address] * (ABNORMAL) Amylase (12/01/2024 9:51 PM CDT) Pathologist [facility] Amylase 26(L) 30 - 99 Units/L Blood 12/01/2024 9:51 PM CDT 12/01/2024 9:54 PM CDT [facility] BLOOD ORDERABLES Final Result [facility] [address] [facility] [place] [address] * (ABNORMAL) Comprehensive metabolic panel (12/01/2024 9:51 PM CDT) [facility] Sodium 143 135 - 145 mmol/L Potassium, pl 3.7 3.3 - 4.9 mmol/L [facility] Chloride 104 97 - 110 mmol/L [facility] CO2 21(L) 22 - 32 mmol/L [facility] Anion gap 18(H) 2 - 15 mmol/L [facility] BUN 24 6 - 25 mg/dL [facility] Creatinine 0.90 0.60 - 1.10 mg/dL [facility] Glucose 78 70 - 199 mg/dL [facility] Comment: Interpretive Data Fasting glucose >/= 126 mg/dl is diagnostic for diabetes. Fasting is defined as no caloric intake for at least 8 hours. Fasting glucose between 100 mg/dl to 125 mg/dl is diagnostic of prediabetes. In a patient with classic symptoms of hyperglycemia or hyperglycemic crisis, a random glucose >/= 200 mg/dl is diagnostic for diabetes. In the absence of unequivocal hyperglycemia, results should be confirmed by repeat testing. The classification and Diagnosis of Diabetes Diabetes Care 2021; 46: S19-S40. Current interpretive data was last revised 2022. Calcium 8.2(L) 8.5 - 10.3 mg/dL [facility] Bilirubin, total 0.3 0.1 - 1.2 mg/dL [facility] Protein, pl 6.0(L) 6.5 - 8.5 g/dL [facility] Albumin 3.5 3.5 - 5.0 g/dL [facility] Alk phos 66 40 - 130 Units/L [facility] ALT 22 7 - 45 Units/L [facility] AST 26 10 - 45 Units/L [facility] Blood 12/01/2024 9:51 PM CDT 12/01/2024 9:54 PM CDT [facility] BLOOD ORDERABLES Final Result Performing Organization Address City/[facility]/ZIP Co de Phone Number [address] [place] [employer] [place] [address] * (ABNORMAL) eGFR (11/25/2024 2:33 AM CDT) Pathologist [facility] eGFR 53(L) >=60 mL/min/1. 73 m2 Comment: Interpretive Data Reference Interval Normal >/= 90 mL/min/1.73m2 Mildly decreased* 60 - 89 mL/min/1.73m2 Mildly to moderately decreased 45 - 59 mL/min/1.73m2 Moderately to severely decreased 30 - 44 mL/min/1.73m2 Severely decreased 15 - 29 mL/min/1.73m2 Kidney Failure < 15 mL/min/1.73m2 *Relative to young adult level Estimated glomerular filtration rate is determined by the 2020 CKD-EPI equation recommended by the National Kidney Foundation (A Unifying Approach to GFR Estimation: Recommendations of the NKF-ASK Task Force on Reassessing the Inclusion of Race in Diagnosing Kidney Disease, JASN 202). The CKD-EPI equation should not be used for patients with unstable renal function and has not been validated in children and those over 70. Current interpretive data was last reviewed 2021. Blood 11/25/2024 2:33 AM CDT 11/25/2024 3:01 AM CDT [place] [employer] LAB BLOOD ORDERABLES Fin al Result Performing Organization Address City/[facility]/ZIP Co de Phone Number [address] [place] [address] * Differential, auto (11/25/2024 2:33 AM CDT) Neutrophil abs 1.82 1.50 - 6.50 K/cumm Imm gran abs 0.07 0.00 - 0.10 K/cumm [facility] Lymphocyte abs 0.96 0.80 - 3.30 K/cumm [facility] Monocyte abs 0.54 0.20 - 0.80 K/cumm [facility] Eosinophil abs 0.12 0.00 - 0.50 K/cumm [facility] Basophil abs 0.01 0.00 - 0.10 K/cumm [facility] Neutrophil pct 51.7 % [facility] Comment: Interpretive Data Percent cell count reference ranges are not reported, since discordance with absolute values may lead to misinterpretation of CBC data. Current Interpretive Data was last revised on 2017. Imm gran pct 2.0 % [facility] Comment: Interpretive Data Percent cell count reference ranges are not reported, since discordance with absolute values may lead to misinterpretation of CBC data. Current Interpretive Data was last revised on 2017. Lymphocyte pct 27.3 % [facility] Comment: Interpretive Data Percent cell count reference ranges are not reported, since discordance with absolute values may lead to misinterpretation of CBC data. Current Interpretive Data was last revised on 2017. Monocyte pct 15.3 % [facility] Comment: Interpretive Data Percent cell count reference ranges are not reported, since discordance with absolute values may lead to misinterpretation of CBC data. Current Interpretive Data was last revised on 2017. Eosinophil pct 3.4 % [facility] Comment: Interpretive Data Percent cell count reference ranges are not reported, since discordance with absolute values may lead to misinterpretation of CBC data. Current Interpretive Data was last revised on 2017. Basophil pct 0.3 % [facility] Comment: Interpretive Data Percent cell count reference ranges are not reported, since discordance with absolute values may lead to misinterpretation of CBC data. Current Interpretive Data was last revised on 2017. Blood 11/25/2024 2:33 AM CDT 11/25/2024 3:01 AM CDT us Judson [place] [employer] LAB BLOOD ORDERABLES Fin al Result [address] [place] [address] * (ABNORMAL) Iron profile w/ IBC (11/25/2024 2:33 AM CDT) [facility] Iron 38 35 - 145 mcg/dL TIBC 326 250 - 400 mcg/dL [facility] Transferrin saturation 12(L) 20 - 50 % [facility] Blood 11/25/2024 2:33 AM CDT 11/25/2024 3:01 AM CDT Md Bell Monaco MD LAB BLOOD ORDERABLES Final Resu lt Performing Organization Address City/[facility] Co de Phone Number [address] [address] * (ABNORMAL) CBC with auto differential (11/25/2024 2:33 AM CDT) [facility] WBC 3.52(L) 3.80 - 9.90 K/cumm Hgb 9.7(L) 11.9 - 15.5 g/dL [facility] Hct 31.4(L) 35.6 - 45.5 % [facility] Plt 122(L) 150 - 400 K/cumm [facility] MPV 10.5 9.1 - 12.3 fL [facility] RBC 3.54(L) 3.90 - 5.20 M/cumm [facility] MCV 88.7 81.3 - 96.4 fL [facility] MCH 27.4 27.1 - 33.3 pg [facility] MCHC 30.9(L) 32.3 - 35.7 g/dL [facility] RDW CV 17.6(H) 11.1 - 14.9 % [facility] RDW SD 57.6(H) 35.7 - 48.1 fL [facility] NRBC abs 0.00 0.00 - 0.01 K/cumm [facility] Morphologic Screen Results confirmed by manual morphology review. [facility] Blood 11/25/2024 2:33 AM CDT 11/25/2024 3:01 AM CDT Judson [place] [employer] LAB BLOOD ORDERABLES Elvis corwin Result - Final Performing Organization Address [facility] Co de Phone Number [address] [place] [address] * (ABNORMAL) Reticulocyte Count (11/25/2024 2:33 AM CDT) Retics, absolute 114(H) 20 - 87 K/cumm Retics 3.2(H) 0.4 - 2.9 % [facility] Reticulocyte Hgb 30.6 30.5 - 38.0 pg [facility] Blood 11/25/2024 2:33 AM CDT 11/25/2024 3:01 AM CDT Md Bell Monaco MD LAB BLOOD ORDERABLES Final Resu lt Performing Organization Address [facility] de Phone Number [address] [place] [address] * (ABNORMAL) T4, free (11/25/2024 2:33 AM CDT) Pathologist [facility] Free T4 0.85(L) 0.90 - 1.70 ng/dL Blood 11/25/2024 2:33 AM CDT 11/25/2024 3:01 AM CDT Md Bell Monaco MD LAB BLOOD ORDERABLES Final Resu lt Performing Organization Address [facility] Co de Phone Number [address] [place] [address] * Folate (11/25/2024 2:33 AM CDT) Pathologist [facility] Folic acid >20.0 >=5.0 ng/mL Blood 11/25/2024 2:33 AM CDT 11/25/2024 3:01 AM CDT Md Bell Monaco MD LAB BLOOD ORDERABLES Final Resu lt Performing Organization Address [facility] Co de Phone Number [address] [place] [address] * Ferritin (11/25/2024 2:33 AM CDT) [facility] Ferritin 127 13 - 150 ng/mL Blood 11/25/2024 2:33 AM CDT 11/25/2024 3:01 AM CDT Md Bell Monaco MD LAB BLOOD ORDERABLES Final Resu lt Performing Organization Address [facility] Co de Phone Number [address] [place] [address] * Vitamin B12 (11/25/2024 2:33 AM CDT) [facility] Vitamin B12 447 230 - 1,250 pg/mL Blood 11/25/2024 2:33 AM CDT 11/25/2024 3:01 AM CDT Md Bell Monaco MD LAB BLOOD ORDERABLES Final Resu lt Performing Organization Address [facility] de Phone Number [address] [place] [address] * (ABNORMAL) Basic metabolic panel (11/25/2024 2:33 AM CDT) [facility] Sodium 136 135 - 145 mmol/L Potassium, pl 3.6 3.3 - 4.9 mmol/L [facility] Chloride 98 97 - 110 mmol/L [facility] CO2 28 22 - 32 mmol/L [facility] Anion gap 10 2 - 15 mmol/L [facility] BUN 21 6 - 25 mg/dL [facility] Creatinine 1.21(H) 0.60 - 1.10 mg/dL [facility] Glucose 92 70 - 199 mg/dL [facility] Comment: Interpretive Data Fasting glucose >/= 126 mg/dl is diagnostic for diabetes. Fasting is defined as no caloric intake for at least 8 hours. Fasting glucose between 100 mg/dl to 125 mg/dl is diagnostic of prediabetes. In a patient with classic symptoms of hyperglycemia or hyperglycemic crisis, a random glucose >/= 200 mg/dl is diagnostic for diabetes. In the absence of unequivocal hyperglycemia, results should be confirmed by repeat testing. The classification and Diagnosis of Diabetes Diabetes Care 202; 46: S19-S40. Current interpretive data was last revised 2022. Calcium 8.7 8.5 - 10.3 mg/dL [facility] Blood 11/25/2024 2:33 AM CDT 11/25/2024 3:01 AM CDT us Judson Tabernero Rufin [employer] LAB BLOOD ORDERABLES Fin al Result [facility] RO[facility] [address] [facility] [place] [address] * (ABNORMAL) eGFR (11/24/2024 4:33 AM CDT) eGFR 58(L) >=60 mL/min/1. 73 m2 Comment: Interpretive Data Reference Interval Normal >/= 90 mL/min/1.73m2 Mildly decreased* 60 - 89 mL/min/1.73m2 Mildly to moderately decreased 45 - 59 mL/min/1.73m2 Moderately to severely decreased 30 - 44 mL/min/1.73m2 Severely decreased 15 - 29 mL/min/1.73m2 Kidney Failure < 15 mL/min/1.73m2 *Relative to young adult level Estimated glomerular filtration rate is determined by the 2020 CKD-EPI equation recommended by the National Kidney Foundation (A Unifying Approach to GFR Estimation: Recommendations of the NKF-ASK Task Force on Reassessing the Inclusion of Race in Diagnosing Kidney Disease, JASN 2020). The CKD-EPI equation should not be used for patients with unstable renal function and has not been validated in children and those over 70. Current interpretive data was last reviewed 2021. Blood 11/24/2024 4:33 AM CDT 11/24/2024 4:50 AM CDT us Judson Tabernero Rufin [employer] LAB BLOOD ORDERABLES Fin al Result [facility] [address] [facility] [place] [address] * (ABNORMAL) Differential, auto (11/24/2024 4:33 AM CDT) Neutrophil abs 2.46 1.50 - 6.50 K/cumm Imm gran abs 0.08 0.00 - 0.10 K/cumm [facility] Lymphocyte abs 0.46(L) 0.80 - 3.30 K/cumm [facility] Monocyte abs 0.20 0.20 - 0.80 K/cumm [facility] Eosinophil abs 0.13 0.00 - 0.50 K/cumm [facility] Basophil abs 0.02 0.00 - 0.10 K/cumm [facility] Neutrophil pct 73.4 % [facility] Comment: Interpretive Data Percent cell count reference ranges are not reported, since discordance with absolute values may lead to misinterpretation of CBC data. Current Interpretive Data was last revised on 2017. Imm gran pct 2.4 % [facility] Comment: Interpretive Data Percent cell count reference ranges are not reported, since discordance with absolute values may lead to misinterpretation of CBC data. Current Interpretive Data was last revised on 2017. Lymphocyte pct 13.7 % [facility] Comment: Interpretive Data Percent cell count reference ranges are not reported, since discordance with absolute values may lead to misinterpretation of CBC data. Current Interpretive Data was last revised on 2017. Monocyte pct 6.0 % [facility] Comment: Interpretive Data Percent cell count reference ranges are not reported, since discordance with absolute values may lead to misinterpretation of CBC data. Current Interpretive Data was last revised on 2017. Eosinophil pct 3.9 % [facility] Comment: Interpretive Data Percent cell count reference ranges are not reported, since discordance with absolute values may lead to misinterpretation of CBC data. Current Interpretive Data was last revised on 2017. Basophil pct 0.6 % [facility] Comment: Interpretive Data Percent cell count reference ranges are not reported, since discordance with absolute values may lead to misinterpretation of CBC data. Current Interpretive Data was last revised on 2017. Blood 11/24/2024 4:33 AM CDT 11/24/2024 4:50 AM CDT [facility] BLOOD ORDERABLES Fin al Result Performing Organization Address City/[facility] Co de Phone Number [address] [place] [address] * (ABNORMAL) CBC with auto differential (11/24/2024 4:33 AM CDT) WBC 3.35(L) 3.80 - 9.90 K/cumm Hgb 10.8(L) 11.9 - 15.5 g/dL [facility] Hct 36.0 35.6 - 45.5 % [facility] Plt 130(L) 150 - 400 K/cumm [facility] MPV 9.5 9.1 - 12.3 fL [facility] RBC 3.89(L) 3.90 - 5.20 M/cumm [facility] MCV 92.5 81.3 - 96.4 fL [facility] MCH 27.8 27.1 - 33.3 pg [facility] MCHC 30.0(L) 32.3 - 35.7 g/dL [facility] RDW CV 18.3(H) 11.1 - 14.9 % [facility] RDW SD 61.2(H) 35.7 - 48.1 fL [facility] NRBC abs 0.00 0.00 - 0.01 K/cumm [facility] Blood 11/24/2024 4:33 AM CDT 11/24/2024 4:50 AM CDT [facility] [employer] LAB BLOOD ORDERABLES Fin al Result Performing Organization Address City/[facility]/ZIP Co de Phone Number [address] [place] [address] * Magnesium (11/24/2024 4:33 AM CDT) Pathologist [facility] Magnesium 2.1 1.4 - 2.5 mg/dL Blood 11/24/2024 4:33 AM CDT 11/24/2024 4:50 AM CDT Donnie Teran MD LAB BLOOD ORDERABLES Final R esult Performing Organization Address [facility]/ZIP Co de Phone Number [facility] [place] [address] * (ABNORMAL) Basic metabolic panel (11/24/2024 4:33 AM CDT) [facility] Sodium 136 135 - 145 mmol/L Potassium, pl 3.5 3.3 - 4.9 mmol/L [facility] Chloride 96(L) 97 - 110 mmol/L [facility] CO2 30 22 - 32 mmol/L [facility] Anion gap 10 2 - 15 mmol/L [facility] BUN 15 6 - 25 mg/dL [facility] Creatinine 1.11(H) 0.60 - 1.10 mg/dL [facility] Glucose 82 70 - 199 mg/dL [facility] Comment: Interpretive Data Fasting glucose >/= 126 mg/dl is diagnostic for diabetes. Fasting is defined as no caloric intake for at least 8 hours. Fasting glucose between 100 mg/dl to 125 mg/dl is diagnostic of prediabetes. In a patient with classic symptoms of hyperglycemia or hyperglycemic crisis, a random glucose >/= 200 mg/dl is diagnostic for diabetes. In the absence of unequivocal hyperglycemia, results should be confirmed by repeat testing. The classification and Diagnosis of Diabetes Diabetes Care 2021; 46: S19-S40. Current interpretive data was last revised 2022. Calcium 8.7 8.5 - 10.3 mg/dL [facility] Blood 11/24/2024 4:33 AM CDT 11/24/2024 4:50 AM CDT Judson Hill NP LAB BLOOD ORDERABLES Fin al Result Performing Organization Address [facility]/ZIP Co de Phone Number [address] [place] [address] * Blood culture Blood (11/23/2024 6:23 AM CDT) Report Final Report: No growth Comment:Testing performed by : [facility], [address] [place]., [address] Blood 11/23/2024 6:23 AM CDT 11/23/2024 11:06 AM CDT Narrative WISAM ROJO - 11/27/2024 12:00 PM CDT From a different site than #1. Collection->Peripheral 1. Blood cultures are incubated for 4 days on a continuously monitored blood culture system. The first report of a negative culture is issued within 24 hours of receipt of the specimen in the laboratory. 2. Positive culture results are reported as soon as they are detected. 3. The most important factor for detection of microbes in the setting of bloodstream infection is the volume of blood submitted for culture. Failure to collect an optimal blood volume can result in false negative blood cultures. 4. For pediatric patients, the recommended blood volume to collect follows a weight based strategy. See the electronic test catalog for collection instructions. 5. For positive blood cultures, a rapid molecular test may be performed for organism identification using the hima ePlex blood culture identification panel for gram positive (BCID-GP) and gram negative (BCID-GN) organisms. This nucleic acid amplification test detects microbial DNA in positive blood culture broth. This assay has been cleared by the [place] Food and Drug Administration and its performance characteristics have been verified by the [facility] Microbiology Laboratory. For questions about this culture, contact the Microbiology Laboratory at [phone]. Interpretive data was last revised on 24. us Judson Anton Hill NP LAB MICROBIOLOGY - GENER AL ORDERABLES Final Result [facility] RO[facility] [address] [facility] [place] [address] * Blood culture Blood (11/23/2024 6:13 AM CDT) Report Final Report: No growth Comment:Testing performed by : [facility], [address] [place]., [address] Blood 11/23/2024 6:13 AM CDT 11/23/2024 11:06 AM CDT Narrative WISAM - 11/27/2024 12:00 PM CDT Collection->Peripheral 1. Blood cultures are incubated for 4 days on a continuously monitored blood culture system. The first report of a negative culture is issued within 24 hours of receipt of the specimen in the laboratory. 2. Positive culture results are reported as soon as they are detected. 3. The most important factor for detection of microbes in the setting of bloodstream infection is the volume of blood submitted for culture. Failure to collect an optimal blood volume can result in false negative blood cultures. 4. For pediatric patients, the recommended blood volume to collect follows a weight based strategy. See the electronic test catalog for collection instructions. 5. For positive blood cultures, a rapid molecular test may be performed for organism identification using the hima ePlex blood culture identification panel for gram positive (BCID-GP) and gram negative (BCID-GN) organisms. This nucleic acid amplification test detects microbial DNA in positive blood culture broth. This assay has been cleared by the [place] Food and Drug Administration and its performance characteristics have been verified by the [facility] Microbiology Laboratory. For questions about this culture, contact the Microbiology Laboratory at [phone]. Interpretive data was last revised on 24. Judson Hill NP LAB MICROBIOLOGY - GENER AL ORDERABLES Final Result Performing Organization Address City/[facility]/ZIP Co de Phone Number [address] [place] [address] * Magnesium (11/23/2024 3:49 AM CDT) Magnesium 1.4 1.4 - 2.5 mg/dL Blood 11/23/2024 3:49 AM CDT 11/23/2024 3:59 AM CDT Donnie Teran MD LAB BLOOD ORDERABLES Final R esult Performing Organization Address City/[facility]/ZIP Co de Phone Number [place] [id number] [facility] [place] [address] * eGFR (11/22/2024 3:24 AM CDT) [facility] eGFR 73 >=60 mL/min/1. 73 m2 Comment: Interpretive Data Reference Interval Normal >/= 90 mL/min/1.73m2 Mildly decreased* 60 - 89 mL/min/1.73m2 Mildly to moderately decreased 45 - 59 mL/min/1.73m2 Moderately to severely decreased 30 - 44 mL/min/1.73m2 Severely decreased 15 - 29 mL/min/1.73m2 Kidney Failure < 15 mL/min/1.73m2 *Relative to young adult level Estimated glomerular filtration rate is determined by the 2020 CKD-EPI equation recommended by the National Kidney Foundation (A Unifying Approach to GFR Estimation: Recommendations of the NKF-ASK Task Force on Reassessing the Inclusion of Race in Diagnosing Kidney Disease, JASN 2020). The CKD-EPI equation should not be used for patients with unstable renal function and has not been validated in children and those over 70. Current interpretive data was last reviewed 2021. Blood 11/22/2024 3:24 AM CDT 11/22/2024 3:53 AM CDT us Su Hastings NP LAB BLOOD ORDERABLES Final Result [facility] [address] [facility] [place] [address] * Differential, auto (11/22/2024 3:24 AM CDT) [facility] Neutrophil abs 2.54 1.50 - 6.50 K/cumm Imm gran abs 0.02 0.00 - 0.10 K/cumm [facility] Lymphocyte abs 1.50 0.80 - 3.30 K/cumm [facility] Monocyte abs 0.38 0.20 - 0.80 K/cumm [facility] Eosinophil abs 0.01 0.00 - 0.50 K/cumm [facility] Basophil abs 0.02 0.00 - 0.10 K/cumm [facility] Neutrophil pct 56.9 % [facility] Comment: Interpretive Data Percent cell count reference ranges are not reported, since discordance with absolute values may lead to misinterpretation of CBC data. Current Interpretive Data was last revised on 2017. Imm gran pct 0.4 % [facility] Comment: Interpretive Data Percent cell count reference ranges are not reported, since discordance with absolute values may lead to misinterpretation of CBC data. Current Interpretive Data was last revised on 2017. Lymphocyte pct 33.6 % [facility] Comment: Interpretive Data Percent cell count reference ranges are not reported, since discordance with absolute values may lead to misinterpretation of CBC data. Current Interpretive Data was last revised on 2017. Monocyte pct 8.5 % [facility] Comment: Interpretive Data Percent cell count reference ranges are not reported, since discordance with absolute values may lead to misinterpretation of CBC data. Current Interpretive Data was last revised on 2017. Eosinophil pct 0.2 % [facility] Comment: Interpretive Data Percent cell count reference ranges are not reported, since discordance with absolute values may lead to misinterpretation of CBC data. Current Interpretive Data was last revised on 2017. Basophil pct 0.4 % [facility] Comment: Interpretive Data Percent cell count reference ranges are not reported, since discordance with absolute values may lead to misinterpretation of CBC data. Current Interpretive Data was last revised on 2017. Blood 11/22/2024 3:24 AM CDT 11/22/2024 3:54 AM CDT us Su Hastings NP LAB BLOOD ORDERABLES Final Result [facility] [address] [facility] [place] [address] * (ABNORMAL) CBC with auto differential (11/22/2024 3:24 AM CDT) WBC 4.47 3.80 - 9.90 K/cumm Hgb 9.4(L) 11.9 - 15.5 g/dL [facility] Hct 31.6(L) 35.6 - 45.5 % [facility] Plt 164 150 - 400 K/cumm [facility] MPV 9.9 9.1 - 12.3 fL [facility] RBC 3.44(L) 3.90 - 5.20 M/cumm [facility] MCV 91.9 81.3 - 96.4 fL [facility] MCH 27.3 27.1 - 33.3 pg [facility] MCHC 29.7(L) 32.3 - 35.7 g/dL [facility] RDW CV 17.4(H) 11.1 - 14.9 % [facility] RDW SD 57.7(H) 35.7 - 48.1 fL [facility] NRBC abs 0.00 0.00 - 0.01 K/cumm [facility] Blood 11/22/2024 3:24 AM CDT 11/22/2024 3:54 AM CDT Su Hastings NP LAB BLOOD ORDERABLES Final Result Performing Organization Address [facility] de Phone Number [address] [place] [employer] [place] [address] * Magnesium (11/22/2024 3:24 AM CDT) [facility] Magnesium 1.8 1.4 - 2.5 mg/dL Blood 11/22/2024 3:24 AM CDT 11/22/2024 3:53 AM CDT Donnie Teran MD LAB BLOOD ORDERABLES Final R esult Performing Organization Address [facility] Co de Phone Number [address] [place] [employer] [place] [address] * (ABNORMAL) Basic metabolic panel (11/22/2024 3:24 AM CDT) Pathologist [facility] Sodium 141 135 - 145 mmol/L Potassium, pl 3.4 3.3 - 4.9 mmol/L [facility] Chloride 104 97 - 110 mmol/L [facility] CO2 30 22 - 32 mmol/L [facility] Anion gap 7 2 - 15 mmol/L [facility] BUN 15 6 - 25 mg/dL [facility] Creatinine 0.92 0.60 - 1.10 mg/dL [facility] Glucose 89 70 - 199 mg/dL [facility] Comment: Interpretive Data Fasting glucose >/= 126 mg/dl is diagnostic for diabetes. Fasting is defined as no caloric intake for at least 8 hours. Fasting glucose between 100 mg/dl to 125 mg/dl is diagnostic of prediabetes. In a patient with classic symptoms of hyperglycemia or hyperglycemic crisis, a random glucose >/= 200 mg/dl is diagnostic for diabetes. In the absence of unequivocal hyperglycemia, results should be confirmed by repeat testing. The classification and Diagnosis of Diabetes Diabetes Care 2021; 46: S19-S40. Current interpretive data was last revised 2022. Calcium 8.1(L) 8.5 - 10.3 mg/dL [facility] Blood 11/22/2024 3:24 AM CDT 11/22/2024 3:53 AM CDT Su Hastings [employer] LAB BLOOD ORDERABLES Final Result [facility] [place] [address] * eGFR (11/21/2024 3:48 AM CDT) eGFR 85 >=60 mL/min/1. 73 m2 Comment: Interpretive Data Reference Interval Normal >/= 90 mL/min/1.73m2 Mildly decreased* 60 - 89 mL/min/1.73m2 Mildly to moderately decreased 45 - 59 mL/min/1.73m2 Moderately to severely decreased 30 - 44 mL/min/1.73m2 Severely decreased 15 - 29 mL/min/1.73m2 Kidney Failure < 15 mL/min/1.73m2 *Relative to young adult level Estimated glomerular filtration rate is determined by the 2020 CKD-EPI equation recommended by the National Kidney Foundation (A Unifying Approach to GFR Estimation: Recommendations of the NKF-ASK Task Force on Reassessing the Inclusion of Race in Diagnosing Kidney Disease, JASN 2020). The CKD-EPI equation should not be used for patients with unstable renal function and has not been validated in children and those over 70. Current interpretive data was last reviewed 2021. Blood 11/21/2024 3:48 AM CDT 11/21/2024 4:25 AM CDT Su Hastings NP LAB BLOOD ORDERABLES Final Result [facility] [address] [facility] [place] [address] * Differential, auto (11/21/2024 3:48 AM CDT) Pathologist [facility] Neutrophil abs 1.52 1.50 - 6.50 K/cumm Imm gran abs 0.02 0.00 - 0.10 K/cumm [facility] Lymphocyte abs 2.23 0.80 - 3.30 K/cumm [facility] Monocyte abs 0.45 0.20 - 0.80 K/cumm [facility] Eosinophil abs 0.00 0.00 - 0.50 K/cumm [facility] Basophil abs 0.01 0.00 - 0.10 K/cumm [facility] Neutrophil pct 36.0 % [facility] Comment: Interpretive Data Percent cell count reference ranges are not reported, since discordance with absolute values may lead to misinterpretation of CBC data. Current Interpretive Data was last revised on 2017. Imm gran pct 0.5 % [facility] Comment: Interpretive Data Percent cell count reference ranges are not reported, since discordance with absolute values may lead to misinterpretation of CBC data. Current Interpretive Data was last revised on 2017. Lymphocyte pct 52.7 % [facility] Comment: Interpretive Data Percent cell count reference ranges are not reported, since discordance with absolute values may lead to misinterpretation of CBC data. Current Interpretive Data was last revised on 2017. Monocyte pct 10.6 % [facility] Comment: Interpretive Data Percent cell count reference ranges are not reported, since discordance with absolute values may lead to misinterpretation of CBC data. Current Interpretive Data was last revised on 2017. Eosinophil pct 0.0 % [facility] Comment: Interpretive Data Percent cell count reference ranges are not reported, since discordance with absolute values may lead to misinterpretation of CBC data. Current Interpretive Data was last revised on 2017. Basophil pct 0.2 % [facility] Comment: Interpretive Data Percent cell count reference ranges are not reported, since discordance with absolute values may lead to misinterpretation of CBC data. Current Interpretive Data was last revised on 2017. Blood 11/21/2024 3:48 AM CDT 11/21/2024 4:24 AM CDT Su Hastings [employer] LAB BLOOD ORDERABLES Final Result Performing Organization Address [facility] Co de Phone Number [facility] [address] [place] [address] * (ABNORMAL) CBC with auto differential (11/21/2024 3:48 AM CDT) WBC 4.23 3.80 - 9.90 K/cumm Hgb 9.6(L) 11.9 - 15.5 g/dL [facility] Hct 31.5(L) 35.6 - 45.5 % [facility] Plt 181 150 - 400 K/cumm [facility] MPV 9.8 9.1 - 12.3 fL [facility] RBC 3.48(L) 3.90 - 5.20 M/cumm [facility] MCV 90.5 81.3 - 96.4 fL [facility] MCH 27.6 27.1 - 33.3 pg [facility] MCHC 30.5(L) 32.3 - 35.7 g/dL [facility] RDW CV 17.2(H) 11.1 - 14.9 % [facility] RDW SD 56.0(H) 35.7 - 48.1 fL [facility] NRBC abs 0.00 0.00 - 0.01 K/cumm [facility] Blood 11/21/2024 3:48 AM CDT 11/21/2024 4:24 AM CDT Su Hastings [employer] LAB BLOOD ORDERABLES Final Result Performing Organization Address [facility] Co de Phone Number [facility] [address] [place] [address] * (ABNORMAL) Basic metabolic panel (11/21/2024 3:48 AM CDT) [facility] Sodium 141 135 - 145 mmol/L Potassium, pl 3.0(L) 3.3 - 4.9 mmol/L [facility] Comment:Hemolyzed; Potassium value may be falsely elevated by as much as 1.0 mmol/L. Suggest redraw and reanalysis. Chloride 102 97 - 110 mmol/L [facility] CO2 30 22 - 32 mmol/L [facility] Anion gap 9 2 - 15 mmol/L [facility] BUN 16 6 - 25 mg/dL [facility] Creatinine 0.81 0.60 - 1.10 mg/dL [facility] Glucose 160 70 - 199 mg/dL [facility] Comment: Interpretive Data Fasting glucose >/= 126 mg/dl is diagnostic for diabetes. Fasting is defined as no caloric intake for at least 8 hours. Fasting glucose between 100 mg/dl to 125 mg/dl is diagnostic of prediabetes. In a patient with classic symptoms of hyperglycemia or hyperglycemic crisis, a random glucose >/= 200 mg/dl is diagnostic for diabetes. In the absence of unequivocal hyperglycemia, results should be confirmed by repeat testing. The classification and Diagnosis of Diabetes Diabetes Care 202; 46: S19-S40. Current interpretive data was last revised 2022. Calcium 8.2(L) 8.5 - 10.3 mg/dL [facility] Blood 11/21/2024 3:48 AM CDT 11/21/2024 4:25 AM CDT Su Hastings NP LAB BLOOD ORDERABLES Final Result [facility] [address] [facility] [place] [address] * eGFR (11/20/2024 3:10 AM CDT) [facility] eGFR 86 >=60 mL/min/1. 73 m2 Comment: Interpretive Data Reference Interval Normal >/= 90 mL/min/1.73m2 Mildly decreased* 60 - 89 mL/min/1.73m2 Mildly to moderately decreased 45 - 59 mL/min/1.73m2 Moderately to severely decreased 30 - 44 mL/min/1.73m2 Severely decreased 15 - 29 mL/min/1.73m2 Kidney Failure < 15 mL/min/1.73m2 *Relative to young adult level Estimated glomerular filtration rate is determined by the 2020 CKD-EPI equation recommended by the National Kidney [employer] (A Unifying Approach to GFR Estimation: Recommendations of the NKF-ASK Task Force on Reassessing the Inclusion of Race in Diagnosing Kidney Disease, JASN 202). The CKD-EPI equation should not be used for patients with unstable renal function and has not been validated in children and those over 70. Current interpretive data was last reviewed 2021. Blood 11/20/2024 3:10 AM CDT 11/20/2024 3:44 AM CDT Su Hastings NP LAB BLOOD ORDERABLES Final Result [place] [id number] [facility] [place] [address] * (ABNORMAL) Differential, auto (11/20/2024 3:10 AM CDT) Neutrophil abs 0.80(L) 1.50 - 6.50 K/cumm Imm gran abs 0.00 0.00 - 0.10 K/cumm [facility] Lymphocyte abs 1.45 0.80 - 3.30 K/cumm [facility] Monocyte abs 0.03(L) 0.20 - 0.80 K/cumm [facility] Eosinophil abs 0.00 0.00 - 0.50 K/cumm [facility] Basophil abs 0.00 0.00 - 0.10 K/cumm [facility] Neutrophil pct 35.1 % [facility] Comment: Interpretive Data Percent cell count reference ranges are not reported, since discordance with absolute values may lead to misinterpretation of CBC data. Current Interpretive Data was last revised on 2017. Imm gran pct 0.0 % [facility] Comment: Interpretive Data Percent cell count reference ranges are not reported, since discordance with absolute values may lead to misinterpretation of CBC data. Current Interpretive Data was last revised on 2017. Lymphocyte pct 63.6 % [facility] Comment: Interpretive Data Percent cell count reference ranges are not reported, since discordance with absolute values may lead to misinterpretation of CBC data. Current Interpretive Data was last revised on 2017. Monocyte pct 1.3 % [facility] Comment: Interpretive Data Percent cell count reference ranges are not reported, since discordance with absolute values may lead to misinterpretation of CBC data. Current Interpretive Data was last revised on 2017. Eosinophil pct 0.0 % [facility] Comment: Interpretive Data Percent cell count reference ranges are not reported, since discordance with absolute values may lead to misinterpretation of CBC data. Current Interpretive Data was last revised on 2017. Basophil pct 0.0 % [facility] Comment: Interpretive Data Percent cell count reference ranges are not reported, since discordance with absolute values may lead to misinterpretation of CBC data. Current Interpretive Data was last revised on 2017. Blood 11/20/2024 3:10 AM CDT 11/20/2024 3:44 AM CDT Su Hastings LAB BLOOD ORDERABLES Final Result Performing Organization Address City/[facility] Co de Phone Number [address] [place] [address] * HIV 1/2 Antibody plus p24 Antigen Blood (11/20/2024 3:10 AM CDT) HIV 1/2 ab + p24 ag Nonreactive Nonreactive Comment:Nonreactive for HIV- 1 antigen and HIV-1/HIV-2 antibodies. No laboratory evidence of HIV infection. If acute HIV infection is suspected, consider testing for HIV-1 RNA. Current interpretive data was last revised on 21. Blood 11/20/2024 3:10 AM CDT 11/20/2024 3:44 AM CDT Su Hastings NP LAB MICROBIOLOGY - GENERAL ORDERABLES Final Result Performing Organization Address City/[facility]/ZIP Co de Phone Number [place] [id number] [facility] [place] [address] * (ABNORMAL) CBC with auto differential (11/20/2024 3:10 AM CDT) [facility] WBC 2.28(L) 3.80 - 9.90 K/cumm Hgb 10.2(L) 11.9 - 15.5 g/dL [facility] Hct 33.7(L) 35.6 - 45.5 % [facility] Plt 210 150 - 400 K/cumm [facility] MPV 9.5 9.1 - 12.3 fL [facility] RBC 3.73(L) 3.90 - 5.20 M/cumm [facility] MCV 90.3 81.3 - 96.4 fL [facility] MCH 27.3 27.1 - 33.3 pg [facility] MCHC 30.3(L) 32.3 - 35.7 g/dL [facility] RDW CV 16.8(H) 11.1 - 14.9 % [facility] RDW SD 55.5(H) 35.7 - 48.1 fL [facility] NRBC abs 0.00 0.00 - 0.01 K/cumm [facility] Morphologic Screen Results confirmed by manual morphology review. [facility] Blood 11/20/2024 3:10 AM CDT 11/20/2024 3:44 AM CDT Su Hastings NP LAB BLOOD ORDERABLES Edited Result - Final [facility] [address] [facility] [place] [address] * Hepatitis C antibody Blood (11/20/2024 3:10 AM CDT) Pathologist [facility] Hep C Ab Nonreactive Nonreactive Comment: Antibodies to HCV not detected. Does NOT exclude the possibility of recent exposure to HCV. Current interpretive data was last revised on 21 Interpretive Data Nonreactive: Antibodies to HCV not detected. Does NOT exclude the possibility of recent exposure to HCV. Equivocal: Equivocal for HCV antibodies. Supplemental molecular testing will be automatically performed to determine infection status in accordance with current CDC screening recommendations. Reactive: Positive for HCV antibodies. This may represent current or past HCV infection. Supplemental molecular testing will be automatically performed to determine current infection status in accordance with current CDC screening recommendations. Interpretive data was last revised on 2019. Blood 11/20/2024 3:10 AM CDT 11/20/2024 3:44 AM CDT Su Hastings [employer] LAB MICROBIOLOGY - GENERAL ORDERABLES Final Result Performing Organization Address [facility] Co de Phone Number [address] [place] [address] * Basic metabolic panel (11/20/2024 3:10 AM CDT) [facility] Sodium 142 135 - 145 mmol/L Potassium, pl 3.8 3.3 - 4.9 mmol/L [facility] Chloride 104 97 - 110 mmol/L [facility] CO2 25 22 - 32 mmol/L [facility] Anion gap 13 2 - 15 mmol/L [facility] BUN 14 6 - 25 mg/dL [facility] Creatinine 0.80 0.60 - 1.10 mg/dL [facility] Glucose 164 70 - 199 mg/dL [facility] Comment: Interpretive Data Fasting glucose >/= 126 mg/dl is diagnostic for diabetes. Fasting is defined as no caloric intake for at least 8 hours. Fasting glucose between 100 mg/dl to 125 mg/dl is diagnostic of prediabetes. In a patient with classic symptoms of hyperglycemia or hyperglycemic crisis, a random glucose >/= 200 mg/dl is diagnostic for diabetes. In the absence of unequivocal hyperglycemia, results should be confirmed by repeat testing. The classification and Diagnosis of Diabetes Diabetes Care 2021; 46: S19-S40. Current interpretive data was last revised 2022. Calcium 8.5 8.5 - 10.3 mg/dL [facility] Blood 11/20/2024 3:10 AM CDT 11/20/2024 3:44 AM CDT Su Hastings NP LAB BLOOD ORDERABLES Final Result Performing Organization Address [facility] Co de Phone Number [address] [place] [address] * Erythrocyte sedimentation rate (11/19/2024 7:09 PM CDT) [facility] Erythrocyte sedimentation rate 2 1 - 30 mm/hr Blood 11/19/2024 7:09 PM CDT 11/19/2024 7:25 PM CDT Su Hastings [employer] LAB BLOOD ORDERABLES Final Result Performing Organization Address City/[facility]/ZIP Co de Phone Number [address] [place] [address] * CRP (acute phase) (11/19/2024 7:09 PM CDT) [facility] CRP 1.5 <=10.0 mg/L Blood 11/19/2024 7:09 PM CDT 11/19/2024 7:25 PM CDT Su Hastings [employer] LAB BLOOD ORDERABLES Final Result Performing Organization Address City/[facility] Co de Phone Number [address] [place] [address] * (ABNORMAL) Benzodiazepine Confirmation by MS (11/19/2024 12:53 PM CDT) [facility] Alprazolam, ur Does Not Confirm CutOff 20 ng/ml Comment:Testing performed by : [facility], [address] [place] [address], [place]., [address] Clonazepam, ur Does Not Confirm CutOff 20 ng/ml [facility] Comment:Testing performed by : [facility], [address] [place]., [address] Flunitrazepam, ur Does Not Confirm CutOff 20 ng/ml [facility] Comment:Testing performed by : [facility], [address] [place]., [address] Lorazepam, ur Does Not Confirm CutOff 20 ng/ml [facility] Comment:Testing performed by : [facility], [address] [place] [address], [facility] [place] [address] Midazolam, ur Does Not Confirm CutOff 100 ng/mL [facility] Comment:Testing performed by : [facility], [address] [place]., [address] Nordiazepam, ur Does Not Confirm CutOff 20 ng/ml [facility] Comment:Testing performed by : [facility], [address] [place]., [address] Oxazepam, ur Confirmed Positive(A) CutOff 20 ng/ml [facility] Comment:Testing performed by : [facility], [address] [place]., [address] Temazepam, ur Confirmed Positive(A) CutOff 20 ng/ml [facility] Comment: Interpretive Data This test is performed by liquid chromatography tandem mass spectrometry and detects both free and conjugated drug metabolites. Questions concerning interpretation should be directed to the laboratory. The results of this test are intended for clinical use. This test was developed and its performance characteristics determined by [facility]. It has not been cleared or approved by the U.S. Food and Drug Administration. Testing performed by: [facility], [address] [place]., [address] Urine 11/19/2024 12:5 3 PM CDT 11/19/2024 3:36 PM CDT Jihan Ortega MD LAB URINE ORDERABLES Final Res ult [facility] [address] [facility] Department of Laboratories [place], [place] [id number] * (ABNORMAL) Drugs of Abuse Screen, Urine with Reflex Confirmation (11/19/2024 12:53 PM CDT) [facility] Amphetamine, ur Not Detected CutOff 500ng/mL Comment: Interpretive Data - Amphetamines: Samples containing greater than 500 ng/mL d-methamphetamine or other cross-reacting amphetamine compounds are reported as positive. Amphetamine immunoassays are subject to significant false positive rates due to cross-reactivity of non-amphetamine drugs. Confirmatory testing required for definitive results. Current Interpretive Data was last reviewed 2022. Barbiturates, ur Not Detected CutOff 200ng/mL [facility] Comment: Interpretive Data - Barbiturates: Samples containing greater than 200 ng/mL secobarbital or other cross-reacting barbiturate compounds are reported as positive. False positive and false negative results are possible. Confirmatory testing required for definitive results. Current Interpretive Data was last reviewed 2022. Benzodiazepines, ur Screen Positive, presumptive (A) CutOff 100ng/mL [facility] Comment: Interpretive Data - Benzodiazepines: Samples containing greater than 100 ng/mL nordiazepam or other cross-reacting compounds are reported as positive. False positive and false negative results are possible. Confirmatory testing required for definitive results. Current Interpretive Data was last reviewed 2022. Cannabinoids, ur Not Detected CutOff 50 ng/mL [facility] Comment: Interpretive Data - Cannabinoids: Samples containing greater than 50 ng/mL delta-9 THC -COOH or other cross- reacting compounds are reported as positive. False positive and false negative results are possible. Confirmatory testing required for definitive results. Current Interpretive Data was last reviewed 2022. Cocaine, ur Not Detected CutOff 150ng/mL [facility] Comment: Interpretive Data - Cocaine: Samples containing greater than 150 ng/mL benzoylecgonine or other cross- reacting compounds are reported as positive. False positive and false negative results are possible. Confirmatory testing required for definitive results. Current Interpretive Data was last reviewed 2022. Fentanyl, Ur Not Detected CutOff 5 ng/mL [facility] Comment: Interpretive Data - Fentanyl: Samples containing greater than 5 ng/mL norfentanyl, fentanyl, or other cross-reacting fentanyl compounds are reported as positive. False positive and false negative results are possible. Confirmatory testing required for definitive results. Current Interpretive Data was last reviewed 2023. Methadone, ur Not Detected CutOff 300ng/mL [facility] Comment: Interpretive Data - Methadone: Samples containing greater than 300 ng/mL d,l-methadone or other cross-reacting compounds are reported as positive. False positive and false negative results are possible. Confirmatory testing required for definitive results. Current Interpretive Data was last reviewed 2022. Opiates, ur Not Detected CutOff 300ng/mL [facility] Comment: Interpretive Data - Opiates: Samples containing greater than 300 ng/mL morphine or other cross-reacting compounds are reported as positive. False positive and false negative results are possible. Confirmatory testing required for definitive results. Current Interpretive Data was last reviewed 2022. Oxycodone, ur Not Detected CutOff 100ng/mL [facility] Comment: Interpretive Data - Oxycodone: Samples containing greater than 100 ng/mL oxycodone or other cross-reacting compounds are reported as positive. False positive and false negative results are possible. Confirmatory testing required for definitive results. Current Interpretive Data was last reviewed 2022. Phencyclidine, ur Not Detected CutOff 25 ng/[facility] Comment: Interpretive Data - Phencyclidine: Samples containing greater than 25 ng/mL phencyclidine or other cross-reacting compounds are reported as positive. False positive and false negative results are possible. Confirmatory testing required for definitive results. Current Interpretive Data was last reviewed 2022. Urine Creatinine 173 mg/dL [facility] Comment: Interpretive Data Urine Creatinine: < 10 mg/dL is extremely dilute = or > 10 but < 20 mg/dL is dilute = or > 20 mg/dL is normal Current Interpretive Data was last revised on 2017. Urine 11/19/2024 12:5 3 PM CDT 11/19/2024 12:58 PM CDT Narrative [facility] - 11/19/2024 1:33 PM CDT Drug Screening is performed by immunoassay for medical purposes. If positive, confirmation testing will be performed for amphetamines, benzodiazepines, cocaine, fentanyl, methadone, opiates, oxycodone, and phencyclidine. Jihan Ortega MD LAB URINE ORDERABLES Final Res ult [facility] [address] [facility] [place] [address] * (ABNORMAL) Urinalysis reflex to microscopic and culture Urine (11/19/2024 12:53 PM CDT) Color, ur Yellow Yellow Clarity, ur Clear Clear [facility] Specific gravity, ur 1.019 1.003 - 1.030 [facility] pH, urine 5.5 [facility] Comment: Interpretive Data U rine pH is affected by diet, medications, systemic acid-base disturbances, and renal tubular function. pH may affect urinary stone formation. For example, urine pH below 6.0 may help reduce the tendency for calcium phosphate stones and pH greater than 6.0 may reduce the tendency for uric acid stone formation. Source: [facility] Current Interpretive Data was last revised on 2017 Protein, ur ql Negative Negative [facility] Glucose, ur ql Negative Negative [facility] Ketones, ur Negative Negative [facility] Bilirubin, ur Negative Negative [facility] Blood, ur 1+(A) Negative [facility] Urobilinogen, ur <2.0 <2.0 mg/dL [facility] Nitrite, ur Positive(A) Negative [facility] Leukocyte esterase, ur 3+(A) Negative [facility] UA reflex comment Reflex to microscopic UA will be performed. [facility] Urine 11/19/2024 12:5 3 PM CDT 11/19/2024 12:58 PM CDT Jihan Ortega MD LAB MICROBIOLOGY - GENERAL ORD ERABLES Final Result Performing Organization Address [facility] Co de Phone Number [address] [place] [address] * (ABNORMAL) Urinalysis, microscopic only (11/19/2024 12:53 PM CDT) WBC, ur >50(A) 0 - 5 /HPF RBC, ur 3-5(A) 0 - 2 /HPF [facility] Bacteria, ur 1+(A) [facility] Mucous, ur Present(A) [facility] Hyaline casts, ur 21-50(A) 0 - 10 /LPF [facility] Culture Reflex Comment Reflex to urine culture will be performed. [facility] Urine 11/19/2024 12:5 3 PM CDT 11/19/2024 12:58 PM CDT us Jihan Ortega MD LAB URINE ORDERABLES Final Res ult Performing Organization Address [facility] Co de Phone Number [address] [place] [address] * (ABNORMAL) Urine culture Urine (11/19/2024 12:53 PM CDT) Report Final Report: Greater than or equal to 100,000 colonies/mL of Klebsiella pneumoniae The susceptibility pattern of this Klebsiella pneumoniae indicates the possible production of an extended spectrum beta lactamase (ESBL). Patients infected with ESBL-producing organisms require contact isolation precautions. For therapeutic options for this organism, please contact infectious diseases. (.) Comment:Testing performed by : [facility], [address] [place]., [address] Organism KLEBSIELLA PNEUMONIAE [facility] Urine 11/19/2024 12:5 3 PM CDT 11/19/2024 3:55 PM CDT Narrative [facility] - 11/22/2024 10:10 AM CDT Urine culture reflexed based upon urinalysis results. Testing performed by [facility] ([phone]) Organism Antibiotic Method Susceptibility Klebsiella pneumoniae Ampicillin INTERPRETATION Resistant Klebsiella pneumoniae Cefazolin INTERPRETATION Resistant Klebsiella pneumoniae Nitrofurantoin INTERPRETATION Resistant Klebsiella pneumoniae Gentamicin INTERPRETATION Susceptible Klebsiella pneumoniae Trimethoprim with Sulfamethoxazole INTERPRETATION Susceptible Klebsiella pneumoniae Meropenem INTERPRETATION Susceptible Klebsiella pneumoniae Cefepime INTERPRETATION Susceptible Klebsiella pneumoniae Ciprofloxacin INTERPRETATION Intermediate Klebsiella pneumoniae Ceftazidime INTERPRETATION Intermediate Klebsiella pneumoniae Ceftriaxone INTERPRETATION Susceptible Klebsiella pneumoniae Piperacillin/Tazobactam INTERPRE TATION Resistant Klebsiella pneumoniae Cephalexin INTERPRETATION Resistant Klebsiella pneumoniae Cefuroxime-axetil INTERPRETATION Resistant Klebsiella pneumoniae Cefdinir INTERPRETATION Resistant Klebsiella pneumoniae Amikacin INTERPRETATION Susceptible Klebsiella pneumoniae Aztreonam INTERPRETATION Susceptible Klebsiella pneumoniae Imipenem INTERPRETATION Susceptible Klebsiella pneumoniae Ertapenem INTERPRETATION Susceptible Klebsiella pneumoniae Minocycline INTERPRETATION Resistant Klebsiella pneumoniae Tobramycin INTERPRETATION Susceptible Klebsiella pneumoniae Levofloxacin INTERPRETATION Susceptible Klebsiella pneumoniae Doxycycline INTERPRETATION Resistant Klebsiella pneumoniae Ampicillin with Sulbactam INTERP RETATION Resistant Jihan Ortega MD LAB MICROBIOLOGY - GENERAL ORD ERABLES Final Result [facility] [address] [facility] [place] [address] * XR Chest 1 Vw (11/19/2024 11:32 AM CDT) Anatomical Region Laterality Modality Body, Chest N/A Computed Radiogr aphy 11/19/2024 11:4 1 AM CDT Narrative 11/19/2024 11:41 AM CDT EXAM DESCRIPTION: XR CHEST 1 VIEW REASON FOR STUDY: rule out penumonia Pt BIBEMS from home for generalized weakness starting this AM. Pt admits to drinking 2 pints of vodka last PM and when she woke up this morning she was unable to get out of bed on her own. Reports generalized weakness throughout body. Pt expresses interest in detox program. PMHx: CHF, COPD, HTN (took all daily meds), and recent admission for pneumonia Pt hypotensive on arrival, A, RR even/NL, NAD TECHNIQUE: Single radiographic view(s) of the chest. COMPARISON: Chest radiograph 10/14/2024 FINDINGS: LUNGS: Right basilar atelectasis. No focal opacity, pleural effusion, or pneumothorax. HEART/MEDIASTINUM: Cardiac silhouette normal in size. Mediastinal and hilar contours appear normal. LINES/TUBES: None. BONES: No acute osseous abnormality. IMPRESSION: No acute cardiopulmonary abnormality. THIS IS AN ELECTRONICALLY VERIFIED FINAL REPORT 11/19/2024 11:41 AM - Electronically signed by Tomasa Ware M.D. FT T: Report ID: [id number] Reading Location: [id number] Procedure Note Tomasa Mari MD - 11/19/2024 EXAM DESCRIPTION: XR CHEST 1 VIEW REASON FOR STUDY: rule out penumonia Pt BIBEMS from home for generalized weakness starting this AM. Pt admitsto drinking 2 pints of vodka last PM and when she woke up this morning shewas unable to get out of bed on her own. Reports generalized weaknessthroughout body. Pt expresses interest in detox program. PMHx: CHF, COPD, HTN (tookall daily meds), and recent admission for pneumonia Pt hypotensive onarrival, A, RR even/NL, NAD TECHNIQUE: Single radiographic view(s) of the chest. COMPARISON: Chest radiograph 10/14/2024 FINDINGS: LUNGS: Right basilar atelectasis. No focal opacity, pleural effusion, or pneumothorax. HEART/MEDIASTINUM: Cardiac silhouette normal in size. Mediastinal andhilar contours appear normal. LINES/TUBES: None. BONES: No acute osseous abnormality. IMPRESSION: No acute cardiopulmonary abnormality. THIS IS AN ELECTRONICALLY VERIFIED FINAL REPORT 11/19/2024 11:41 AM - Electronically signed by Tomasa Ware M.D. FT T: Report ID: [id number] Reading Location: [place] [address] Jihan Ortega MD IMG XR PROCEDURES Final Result * Influenza A/B, RSV, and COVID-19 PCR Nasopharyngeal (11/19/2024 11:08 AM CDT) [facility] COVID-19 RNA Negative Negative Influenza A RNA Negative Negative [facility] Influenza B RNA Negative Negative [facility] RSV RNA Negative Negative [facility] Comment: Interpretive data: Testing performed by [facility]. This test is performed using the [employer] Xpert Xpress CoV-2/Flu/RSV plus assay. This is a multiplex, real-time reverse transcriptase PCR assay intended for the qualitative detection of nucleic acid from SARS-CoV-2, influenza A, influenza B, and respiratory syncytial virus. This assay has been cleared by the [place] Food and Drug administration. The performance characteristics have been verified by the [facility]. Results must be considered in the clinical context, and a negative result does not rule out infection. Interpretive Data last revised 2023 Nasopharyngeal 11/19/2024 11 :08 AM CDT 11/19/2024 11:10 AM CDT Narrative [facility] - 11/19/2024 11:51 AM CDT Is the Patient experiencing symptoms consistent with COVID?->Yes Jihan Ortega MD LAB MICROBIOLOGY - GENERAL ORD ERABLES Final Result [facility] [address] [facility] [place] [address] * eGFR (11/19/2024 11:08 AM CDT) eGFR 80 >=60 mL/min/1. 73 m2 Comment: Interpretive Data Reference Interval Normal >/= 90 mL/min/1.73m2 Mildly decreased* 60 - 89 mL/min/1.73m2 Mildly to moderately decreased 45 - 59 mL/min/1.73m2 Moderately to severely decreased 30 - 44 mL/min/1.73m2 Severely decreased 15 - 29 mL/min/1.73m2 Kidney Failure < 15 mL/min/1.73m2 *Relative to young adult level Estimated glomerular filtration rate is determined by the 2020 CKD-EPI equation recommended by the National Kidney Foundation (A Unifying Approach to GFR Estimation: Recommendations of the NKF-ASK Task Force on Reassessing the Inclusion of Race in Diagnosing Kidney Disease, JASN 2020). The CKD-EPI equation should not be used for patients with unstable renal function and has not been validated in children and those over 70. Current interpretive data was last reviewed 2021. Blood 11/19/2024 11:0 8 AM CDT 11/19/2024 11:10 AM CDT Jihan Ortega MD LAB BLOOD ORDERABLES Final Res ult [facility] [address] [facility] [place] [address] * (ABNORMAL) Differential, auto (11/19/2024 11:08 AM CDT) Pathologist [facility] Neutrophil abs 1.37(L) 1.50 - 6.50 K/cumm Imm gran abs 0.02 0.00 - 0.10 K/cumm [facility] Lymphocyte abs 3.69(H) 0.80 - 3.30 K/cumm [facility] Monocyte abs 0.57 0.20 - 0.80 K/cumm [facility] Eosinophil abs 0.16 0.00 - 0.50 K/cumm [facility] Basophil abs 0.03 0.00 - 0.10 K/cumm [facility] Neutrophil pct 23.5 % [facility] Comment: Interpretive Data Percent cell count reference ranges are not reported, since discordance with absolute values may lead to misinterpretation of CBC data. Current Interpretive Data was last revised on 2017. Imm gran pct 0.3 % [facility] Comment: Interpretive Data Percent cell count reference ranges are not reported, since discordance with absolute values may lead to misinterpretation of CBC data. Current Interpretive Data was last revised on 2017. Lymphocyte pct 63.2 % [facility] Comment: Interpretive Data Percent cell count reference ranges are not reported, since discordance with absolute values may lead to misinterpretation of CBC data. Current Interpretive Data was last revised on 2017. Monocyte pct 9.8 % [facility] Comment: Interpretive Data Percent cell count reference ranges are not reported, since discordance with absolute values may lead to misinterpretation of CBC data. Current Interpretive Data was last revised on 2017. Eosinophil pct 2.7 % [facility] Comment: Interpretive Data Percent cell count reference ranges are not reported, since discordance with absolute values may lead to misinterpretation of CBC data. Current Interpretive Data was last revised on 2017. Basophil pct 0.5 % [facility] Comment: Interpretive Data Percent cell count reference ranges are not reported, since discordance with absolute values may lead to misinterpretation of CBC data. Current Interpretive Data was last revised on 2017. Blood 11/19/2024 11:0 8 AM CDT 11/19/2024 11:10 AM CDT Jihan Ortega MD LAB BLOOD ORDERABLES Final Res ult [facility] [address] [facility] [place] [address] * Pro B-type natriuretic peptide (11/19/2024 11:08 AM CDT) NT-proBNP 176 <=300 pg/mL Comment: Interpretive Comments: A. Dyspnea in Acute Care Setting All Ages: < 300 pg/ml, acute heart failure unlikely. < 50 yrs: 300 - 450 pg/ml, further investigation warranted. > 450 pg/ml, acute heart failure likely. 50 - 74 yrs: 300 - 900 pg/ml, further investigation warranted. > 900 pg/ml, acute heart failure likely . > or = 75 yrs: 450 - 1800 pg/ml, further investigation warranted. > 1800 pg/ml, acute heart failure likely. B. Non-acute Setting < 75 yrs < 125 pg/ml, rules out heart failure. > or = 125 pg/ml, further investigation warranted. > or = 75 yrs < 450 pg/ml, rules out heart failure. > or = 450 pg/ml, further investigation warranted. - Knowledge of each individual patient's NT-proBNP range may be more useful than using similar cut-points for every patient. Please note that marked elevations in NT-proBNP levels may be observed in state other than Left Ventricular Congestive Failure, including: acute coronary syndromes, right heart strain/failure (including pulmonary embolism and cor pulmonale), critical illness, renal failure, as well as advanced age. - References: 1. Dat CARRERA et.al. Eur Heart J. 2006:27:330-337. 2. Cj JAMESON, Cyndi SOUSA. J. AM Aruna Cardiol: Cardiovasc Imag. 2009;2: 216- 225. Interpretive Data Last Revised Date: 2017. Blood 11/19/2024 11:0 8 AM CDT 11/19/2024 11:10 AM CDT Jihan Ortega MD LAB BLOOD ORDERABLES Final Res ult [facility] [address] [facility] Department of Laboratories [place], [place] [id number] * (ABNORMAL) CBC with auto differential (11/19/2024 11:08 AM CDT) [facility] WBC 5.84 3.80 - 9.90 K/cumm Hgb 10.0(L) 11.9 - 15.5 g/dL [facility] Hct 33.1(L) 35.6 - 45.5 % [facility] Plt 206 150 - 400 K/cumm [facility] MPV 9.4 9.1 - 12.3 fL [facility] RBC 3.54(L) 3.90 - 5.20 M/cumm [facility] MCV 93.5 81.3 - 96.4 fL [facility] MCH 28.2 27.1 - 33.3 pg [facility] MCHC 30.2(L) 32.3 - 35.7 g/dL [facility] RDW CV 16.9(H) 11.1 - 14.9 % [facility] RDW SD 56.5(H) 35.7 - 48.1 fL [facility] NRBC abs 0.00 0.00 - 0.01 K/cumm [facility] Blood 11/19/2024 11:0 8 AM CDT 11/19/2024 11:10 AM CDT Jihan Ortega MD LAB BLOOD ORDERABLES Final Res ult Performing Organization Address City/[facility]/ZIP Co de Phone Number [address] [place] [address] * Phosphorus (11/19/2024 11:08 AM CDT) Pathologist [facility] Phosphorus, pl 3.1 2.3 - 4.5 mg/dL Blood 11/19/2024 11:0 8 AM CDT 11/19/2024 11:10 AM CDT Su Hastings [employer] LAB BLOOD ORDERABLES Final Result Performing Organization Address City/[facility] Co de Phone Number [address] [place] [address] * Magnesium (11/19/2024 11:08 AM CDT) Pathologist [facility] Magnesium 1.8 1.4 - 2.5 mg/dL Blood 11/19/2024 11:0 8 AM CDT 11/19/2024 11:10 AM CDT Su Hastings [employer] LAB BLOOD ORDERABLES Final Result Performing Organization Address [facility] Co de Phone Number [address] [place] [address] * (ABNORMAL) Ethanol (11/19/2024 11:08 AM CDT) Pathologist [facility] Ethanol 226(H) <=10 mg/dL Comment: Interpretive Data Legal limit of intoxication > or = 80 mg/dL Levels > or = 400 mg/dL are potentially TOXIC. Current interpretive data was last revised on 2018. Blood 11/19/2024 11:0 8 AM CDT 11/19/2024 11:10 AM CDT Jihan Ortega MD LAB BLOOD ORDERABLES Final Res ult [facility] [address] [facility] [place] [address] * (ABNORMAL) Comprehensive metabolic panel (11/19/2024 11:08 AM CDT) Sodium 141 135 - 145 mmol/L Potassium, pl 3.5 3.3 - 4.9 mmol/L [facility] Comment:Hemolyzed; Potassium value may be falsely elevated by as much as 1.0 mmol/L. Suggest redraw and reanalysis. Chloride 103 97 - 110 mmol/L [facility] CO2 28 22 - 32 mmol/L [facility] Anion gap 10 2 - 15 mmol/L [facility] BUN 16 6 - 25 mg/dL [facility] Creatinine 0.85 0.60 - 1.10 mg/dL [facility] Glucose 89 70 - 199 mg/dL [facility] Comment: Interpretive Data Fasting glucose >/= 126 mg/dl is diagnostic for diabetes. Fasting is defined as no caloric intake for at least 8 hours. Fasting glucose between 100 mg/dl to 125 mg/dl is diagnostic of prediabetes. In a patient with classic symptoms of hyperglycemia or hyperglycemic crisis, a random glucose >/= 200 mg/dl is diagnostic for diabetes. In the absence of unequivocal hyperglycemia, results should be confirmed by repeat testing. The classification and Diagnosis of Diabetes Diabetes Care 2022; 46: S19-S40. Current interpretive data was last revised 2022. Calcium 8.0(L) 8.5 - 10.3 mg/dL [facility] Bilirubin, total 0.3 0.1 - 1.2 mg/dL [facility] Protein, pl 5.5(L) 6.5 - 8.5 g/dL [facility] Albumin 3.4(L) 3.5 - 5.0 g/dL [facility] Alk phos 59 40 - 130 Units/L [facility] ALT 22 7 - 45 Units/L [facility] AST 30 10 - 45 Units/L [facility] Comment:Hemolyzed; result ma y be falsely elevated Blood 11/19/2024 11:0 8 AM CDT 11/19/2024 11:10 AM CDT Jihan Ortega MD LAB BLOOD ORDERABLES Final Res ult [facility] [address] [facility] Department of Laboratories [place] [id number] * ECG 12 lead (11/19/2024 10:55 AM CDT) Pathologist [facility] Ventricular Rate EKG/Min 75 BPM [facility] Atrial Rate 75 BPM [facility] [place]-Interval (MSEC) 148 ms [facility] QRS-Interval (MSEC) 90 ms [facility] QT-Interval (MSEC) 426 ms [facility] QTc 475 ms [facility] P [place] 44 degrees [facility] R [place] 55 degrees [facility] T [place] 62 degrees [facility] Diagnosis Normal sinus rhythm QT-prolongatio n, consider metabolic abnormality or drug effect When compared with ECG of 14-OCT-2024 17:58, No significant change was found Confirmed by SULTAN MORGAN M.D. ([id number]) on 11/19/2024 3:08:23 PM [facility] 11/19/2024 10:5 5 AM CDT 11/19/2024 3:08 PM CDT Jihan Ortega MD ECG ORDERABLES Final Result Performing Organization Address City/[facility]/ZIP Co de Phone Number [facility] * eGFR (10/17/2024 6:29 AM CDT) eGFR 86 >=60 mL/min/1. 73 m2 Comment: Interpretive Data Reference Interval Normal >/= 90 mL/min/1.73m2 Mildly decreased* 60 - 89 mL/min/1.73m2 Mildly to moderately decreased 45 - 59 mL/min/1.73m2 Moderately to severely decreased 30 - 44 mL/min/1.73m2 Severely decreased 15 - 29 mL/min/1.73m2 Kidney Failure < 15 mL/min/1.73m2 *Relative to young adult level Estimated glomerular filtration rate is determined by the 2020 CKD-EPI equation recommended by the National Kidney Foundation (A Unifying Approach to GFR Estimation: Recommendations of the NKF-ASK Task Force on Reassessing the Inclusion of Race in Diagnosing Kidney Disease, JASN 2020). The CKD-EPI equation should not be used for patients with unstable renal function and has not been validated in children and those over 70. Current interpretive data was last reviewed 2021. Blood 10/17/2024 6:29 AM CDT 10/17/2024 7:04 AM CDT us Angel Landry MD LAB BLOOD ORDERABLES Final Result [address] [place] [address] * Differential, auto (10/17/2024 6:29 AM CDT) Neutrophil abs 4.23 1.50 - 6.50 K/cumm Imm gran abs 0.04 0.00 - 0.10 K/cumm [facility] Lymphocyte abs 3.07 0.80 - 3.30 K/cumm [facility] Monocyte abs 0.66 0.20 - 0.80 K/cumm [facility] Eosinophil abs 0.00 0.00 - 0.50 K/cumm [facility] Basophil abs 0.01 0.00 - 0.10 K/cumm [facility] Neutrophil pct 52.9 % [facility] Comment: Interpretive Data Percent cell count reference ranges are not reported, since discordance with absolute values may lead to misinterpretation of CBC data. Current Interpretive Data was last revised on 2017. Imm gran pct 0.5 % [facility] Comment: Interpretive Data Percent cell count reference ranges are not reported, since discordance with absolute values may lead to misinterpretation of CBC data. Current Interpretive Data was last revised on 2017. Lymphocyte pct 38.3 % [facility] Comment: Interpretive Data Percent cell count reference ranges are not reported, since discordance with absolute values may lead to misinterpretation of CBC data. Current Interpretive Data was last revised on 2017. Monocyte pct 8.2 % [facility] Comment: Interpretive Data Percent cell count reference ranges are not reported, since discordance with absolute values may lead to misinterpretation of CBC data. Current Interpretive Data was last revised on 2017. Eosinophil pct 0.0 % [facility] Comment: Interpretive Data Percent cell count reference ranges are not reported, since discordance with absolute values may lead to misinterpretation of CBC data. Current Interpretive Data was last revised on 2017. Basophil pct 0.1 % [facility] Comment: Interpretive Data Percent cell count reference ranges are not reported, since discordance with absolute values may lead to misinterpretation of CBC data. Current Interpretive Data was last revised on 2017. Blood 10/17/2024 6:29 AM CDT 10/17/2024 7:04 AM CDT us Angel Landry MD LAB BLOOD ORDERABLES Final Result [facility] [address] [facility] [place] [address] * (ABNORMAL) CBC with auto differential (10/17/2024 6:29 AM CDT) WBC 8.01 3.80 - 9.90 K/cumm Hgb 8.7(L) 11.9 - 15.5 g/dL [facility] Hct 29.5(L) 35.6 - 45.5 % [facility] Plt 334 150 - 400 K/cumm [facility] MPV 9.4 9.1 - 12.3 fL [facility] RBC 3.07(L) 3.90 - 5.20 M/cumm [facility] MCV 96.1 81.3 - 96.4 fL [facility] MCH 28.3 27.1 - 33.3 pg [facility] MCHC 29.5(L) 32.3 - 35.7 g/dL [facility] RDW CV 16.2(H) 11.1 - 14.9 % [facility] RDW SD 56.7(H) 35.7 - 48.1 fL [facility] NRBC abs 0.00 0.00 - 0.01 K/cumm [facility] Blood 10/17/2024 6:29 AM CDT 10/17/2024 7:04 AM CDT us Angel Landry MD LAB BLOOD ORDERABLES Final Result [facility] [address] [facility] [place] [address] * (ABNORMAL) Basic metabolic panel (10/17/2024 6:29 AM CDT) Sodium 141 135 - 145 mmol/L Potassium, pl 3.7 3.3 - 4.9 mmol/L [facility] Chloride 105 97 - 110 mmol/L [facility] CO2 28 22 - 32 mmol/L [facility] Anion gap 8 2 - 15 mmol/L [facility] BUN 19 6 - 25 mg/dL [facility] Creatinine 0.80 0.60 - 1.10 mg/dL [facility] Glucose 89 70 - 199 mg/dL [facility] Comment: Interpretive Data Fasting glucose >/= 126 mg/dl is diagnostic for diabetes. Fasting is defined as no caloric intake for at least 8 hours. Fasting glucose between 100 mg/dl to 125 mg/dl is diagnostic of prediabetes. In a patient with classic symptoms of hyperglycemia or hyperglycemic crisis, a random glucose >/= 200 mg/dl is diagnostic for diabetes. In the absence of unequivocal hyperglycemia, results should be confirmed by repeat testing. The classification and Diagnosis of Diabetes Diabetes Care 2021; 46: S19-S40. Current interpretive data was last revised 2022. Calcium 8.3(L) 8.5 - 10.3 mg/dL [facility] Blood 10/17/2024 6:29 AM CDT 10/17/2024 7:04 AM CDT us Angel Landry MD LAB BLOOD ORDERABLES Final Result [facility] [address] [facility] [place] [address] * CT Chest PE (CTA) W Contrast (10/15/2024 2:25 AM CDT) Anatomical Region Laterality Modality Body N/A Computed Tomogra phy 10/15/2024 6:04 AM CDT Narrative 10/15/2024 6:16 AM CDT EXAM DESCRIPTION: CT CHEST PE (CTA) W CONTRAST REASON FOR STUDY: Pulmonary embolism (PE) suspected, high prob Radha Easton is a 54 y.o. female, with PMHx significant for but not limited to what's listed below, brought in by ambulance from home, presenting to the emergency department with complaints of worsening shortness of breath for the past 3 days. EMS relates patient's oxygen saturation was 81% on room air upon their arrival. They placed patient on a non-rebreather improving her oxygen saturation up to mid 90s. In the ED, patient admits to lower extremity edema, orthopnea and paroxysmal nocturnal dyspnea. She also relates intermittent, central, aching, nonradiating chest pain. She denies palliating or exacerbating factors. Patient intermittently tearful with strong odor of alcohol on breath. Patient is a poor historian at this time secondary to alcohol intoxication and acuity of condition. TECHNIQUE: CT angiogram of the chest performed with intravenous contrast using helical scanning technique with dynamic intravenous contrast injection. Reconstructed coronal and sagittal MPR images reviewed. All images stored on PACS. 3D MIP images rendered on scanning unit and reviewed at time of interpretation. Automated exposure control was used as a dose optimization technique for this examination. CONTRAST TYPE/DOSE: 100mL of IOVERSOL 350 MG IODINE/ML INTRAVENOUS SYRINGE injected via intravenous COMPARISON: 10/06/2024 CT, 10/14/2024 chest radiograph FINDINGS: VASCULATURE: No identified pulmonary emboli. No acute aortic abnormality. LUNGS: Central airways are patent. Band like densities upper and lower lobes generally similar to slightly increased from previous may indicate worsening atelectatic changes. Early pneumonitis not excluded. PLEURA: No effusion. No pneumothorax. MEDIASTINUM/MARIA INES: Nonenlarged lymph nodes retrocaval pretracheal space, AP window, subcarinal space and hilar regions. Granulomatous calcification left hilar region unchanged. HEART: Heart size is enlarged. Mitral valvular calcification. AXILLA: No adenopathy. CHEST WALL: No masses. No subcutaneous air. HARDWARE/LINES/TUBES: None. UPPER ABDOMEN: No significant abnormality. MUSCULOSKELETAL: Diffuse degenerative change thoracic spine with regions of mild compression deformity similar to 10/06/2024 and 09/04/2024 and 08/13/2024. OTHER: No significant abnormality. IMPRESSION: 1. No evidence of pulmonary embolus or acute aortic abnormality. 2. Band like densities in the lung lindquist generally similar to slightly increased from previous may indicate worsening atelectatic changes with early pneumonitis not excluded. THIS IS AN ELECTRONICALLY VERIFIED FINAL REPORT 10/15/2024 6:16 AM - Electronically signed by Jose HAYES T: Report ID: [id number] Reading Location: [place] [address] Procedure Note Jose Church MD - 10/15/2024 EXAM DESCRIPTION: CT CHEST PE (CTA) W CONTRAST REASON FOR STUDY: Pulmonary embolism (PE) suspected, high prob Radha Easton is a 54 y.o. female, with PMHx significant for but notlimited to what's listed below, brought in by ambulance from home, presenting to the emergency department with complaints of worsening shortness of breath forthe past 3 days. EMS relates patient's oxygen saturation was 81% on roomair upon their arrival. They placed patient on a non-rebreather improving her oxygen saturation up to mid 90s. In the ED, patient admits to lowerextremity edema, orthopnea and paroxysmal nocturnal dyspnea. She also relates intermittent, central, aching, nonradiating chest pain. She deniespalliating or exacerbating factors. Patient intermittently tearful with strong odorof alcohol on breath. Patient is a poor historian at this time secondaryto alcohol intoxication and acuity of condition. TECHNIQUE: CT angiogram of the chest performed with intravenous contrastusing helical scanning technique with dynamic intravenous contrast injection. Reconstructed coronal and sagittal MPR images reviewed. All images storedon PACS. 3D MIP images rendered on scanning unit and reviewed at time of interpretation. Automated exposure control was used as a doseoptimization technique for this examination. CONTRAST TYPE/DOSE: 100mL of IOVERSOL 350 MG IODINE/ML INTRAVENOUSSYRINGE injected via intravenous COMPARISON: 10/06/2024 CT, 10/14/2024 chest radiograph FINDINGS: VASCULATURE: No identified pulmonary emboli. No acute aortic abnormality. LUNGS: Central airways are patent. Band like densities upper and lower lobes generally similar to slightly increased from previous may indicate worsening atelectatic changes. Early pneumonitis not excluded. PLEURA: No effusion. No pneumothorax. MEDIASTINUM/MARIA INES: Nonenlarged lymph nodes retrocaval pretracheal space,AP window, subcarinal space and hilar regions. Granulomatous calcificationleft hilar region unchanged. HEART: Heart size is enlarged. Mitral valvular calcification. AXILLA: No adenopathy. CHEST WALL: No masses. No subcutaneous air. HARDWARE/LINES/TUBES: None. UPPER ABDOMEN: No significant abnormality. MUSCULOSKELETAL: Diffuse degenerative change thoracic spine with regionsof mild compression deformity similar to 10/06/2024 and 09/04/2024 and 08/13/2024. OTHER: No significant abnormality. IMPRESSION: 1. No evidence of pulmonary embolus or acute aortic abnormality. 2. Band like densities in the lung lindquist generally similar to slightly increased from previous may indicate worsening atelectatic changes withearly pneumonitis not excluded. THIS IS AN ELECTRONICALLY VERIFIED FINAL REPORT 10/15/2024 6:16 AM - Electronically signed by Jose Church M.D. RB T: Report ID: [id number] Reading Location: [place] [address] Jailyn Hensley MD IMG CT PROCEDURES Final Result * CT Abdomen Pelvis W Contrast (10/15/2024 2:25 AM CDT) Anatomical Region Laterality Modality Body N/A Computed Tomogra phy 10/15/2024 6:17 AM CDT Narrative 10/15/2024 6:28 AM CDT EXAM DESCRIPTION: CT ABDOMEN PELVIS W CONTRAST REASON FOR STUDY: Diffuse mild tenderness, altered mental status limiting exam, elevated lactate and tachycardia Radhatamara Easton is a 54 y.o. female, with PMHx significant for but not limited to what's listed below, brought in by ambulance from home, presenting to the emergency department with complaints of worsening shortness of breath for the past 3 days. EMS relates patient's oxygen saturation was 81% on room air upon their arrival. They placed patient on a non-rebreather improving her oxygen saturation up to mid 90s. In the ED, patient admits to lower extremity edema, orthopnea and paroxysmal nocturnal dyspnea. She also relates intermittent, central, aching, nonradiating chest pain. She denies palliating or exacerbating factors. Patient intermittently tearful with strong odor of alcohol on breath. Patient is a poor historian at this time secondary to alcohol intoxication and acuity of condition. TECHNIQUE: CT scan of the abdomen and pelvis performed with intravenous and without oral contrast using helical scanning technique with dynamic intravenous contrast injection. Reconstructed coronal and sagittal MPR images reviewed. All images stored on PACS. Automated exposure control was used as a dose optimization technique for this examination. CONTRAST TYPE/DOSE: 100mL of IOVERSOL 350 MG IODINE/ML INTRAVENOUS SYRINGE injected via intravenous COMPARISON: 10/06/2024 FINDINGS: LOWER CHEST: Bibasilar band like densities may indicate developing atelectasis or subtle pneumonitis. Heart size enlarged. Please see CT chest report for details. LIVER: Normal size. Fatty infiltrative changes along falciform ligament unchanged. GALLBLADDER: Normally distended BILE DUCTS: No intrahepatic or extrahepatic ductal dilatation. SPLEEN: Normal size. No focal lesions. PANCREAS: No identified cystic or solid masses. No significant calcifications. No adjacent inflammation or peripancreatic fluid collections. Pancreatic duct not dilated. ADRENALS: Normal. KIDNEYS/URINARY TRACT: No identified significant cystic or solid masses. No visualized stones. No hydronephrosis or hydroureter. Symmetric enhancement. Urinary bladder is unremarkable. GI: No dilated bowel loops. No obvious wall thickening. Normal appendix. No significant diverticular disease. Ostomy left lower quadrant noted without inflammatory change or fluid collection. PERITONEUM: No ascites or free air. RETROPERITONEUM: No mass or adenopathy. REPRODUCTIVE: Right adnexal 2.5 cm hypodensity suggesting ovarian cyst. VASCULATURE: No abdominal aortic aneurysm. MUSCULOSKELETAL: Severe sclerosis and depression superior cortical margins bilateral hips greatest on the left as evidence of avascular changes similar to previous. OTHER: No other abnormality. IMPRESSION: 1. No acute abdominal or pelvic abnormality. 2. 2.5 cm right ovarian cyst. 3. 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 4. Bibasilar band like densities may indicate developing atelectasis or subtle pneumonitis. THIS IS AN ELECTRONICALLY VERIFIED FINAL REPORT 10/15/2024 6:28 AM - Electronically signed by Jose Church M.D. RB T: Report ID: [id number] Reading Location: [id number] Procedure Note Jose Church MD - 10/15/2024 EXAM DESCRIPTION: CT ABDOMEN PELVIS W CONTRAST REASON FOR STUDY: Diffuse mild tenderness, altered mental statuslimiting exam, elevated lactate and tachycardia Radha Easton is a 54 y.o. female, with PMHx significant for but notlimited to what's listed below, brought in by ambulance from home, presenting to the emergency department with complaints of worsening shortness of breath forthe past 3 days. EMS relates patient's oxygen saturation was 81% on roomair upon their arrival. They placed patient on a non-rebreather improving her oxygen saturation up to mid 90s. In the ED, patient admits to lowerextremity edema, orthopnea and paroxysmal nocturnal dyspnea. She also relates intermittent, central, aching, nonradiating chest pain. She deniespalliating or exacerbating factors. Patient intermittently tearful with strong odorof alcohol on breath. Patient is a poor historian at this time secondaryto alcohol intoxication and acuity of condition. TECHNIQUE: CT scan of the abdomen and pelvis performed with intravenousand without oral contrast using helical scanning technique with dynamic intravenous contrast injection. Reconstructed coronal and sagittal MPRimages reviewed. All images stored on PACS. Automated exposure control was usedas a dose optimization technique for this examination. CONTRAST TYPE/DOSE: 100mL of IOVERSOL 350 MG IODINE/ML INTRAVENOUSSYRINGE injected via intravenous COMPARISON: 10/06/2024 FINDINGS: LOWER CHEST: Bibasilar band like densities may indicatedeveloping atelectasis or subtle pneumonitis. Heart size enlarged. Please see CT chest report for details. LIVER: Normal size. Fatty infiltrative changes along falciform ligament unchanged. GALLBLADDER: Normally distended BILE DUCTS: No intrahepatic or extrahepatic ductal dilatation. SPLEEN: Normal size. No focal lesions. PANCREAS: No identified cystic or solid masses. No significant calcifications. No adjacent inflammation or peripancreatic fluidcollections. Pancreatic duct not dilated. ADRENALS: Normal. KIDNEYS/URINARY TRACT: No identified significant cystic or solid masses.No visualized stones. No hydronephrosis or hydroureter. Symmetricenhancement. Urinary bladder is unremarkable. GI: No dilated bowel loops. No obvious wall thickening. Normalappendix. No significant diverticular disease. Ostomy left lower quadrant noted without inflammatory change or fluid collection. PERITONEUM: No ascites or free air. RETROPERITONEUM: No mass or adenopathy. REPRODUCTIVE: Right adnexal 2.5 cm hypodensity suggesting ovarian cyst. VASCULATURE: No abdominal aortic aneurysm. MUSCULOSKELETAL: Severe sclerosis and depression superior corticalmargins bilateral hips greatest on the left as evidence of avascular changessimilar to previous. OTHER: No other abnormality. IMPRESSION: 1. No acute abdominal or pelvic abnormality. 2. 2.5 cm right ovarian cyst. 3. 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 4. Bibasilar band like densities may indicate developing atelectasis or subtle pneumonitis. THIS IS AN ELECTRONICALLY VERIFIED FINAL REPORT 10/15/2024 6:28 AM - Electronically signed by Jose Church M.D. RB T: Report ID: [id number] Reading Location: [place] [address] Jailyn Hensley MD IM CT PROCEDURES Final Result * CT Head WO Contrast (10/15/2024 2:25 AM CDT) Anatomical Region Laterality Modality Head and Neck N/A Computed Tomogra phy 10/15/2024 6:29 AM CDT Narrative 10/15/2024 6:32 AM CDT EXAM DESCRIPTION: CT HEAD WO CONTRAST REASON FOR STUDY: Mental status change, unknown cause Radha Easton is a 54 y.o. female, with PMHx significant for but not limited to what's listed below, brought in by ambulance from home, presenting to the emergency department with complaints of worsening shortness of breath for the past 3 days. EMS relates patient's oxygen saturation was 81% on room air upon their arrival. They placed patient on a non-rebreather improving her oxygen saturation up to mid 90s. In the ED, patient admits to lower extremity edema, orthopnea and paroxysmal nocturnal dyspnea. She also relates intermittent, central, aching, nonradiating chest pain. She denies palliating or exacerbating factors. Patient intermittently tearful with strong odor of alcohol on breath. Patient is a poor historian at this time secondary to alcohol intoxication and acuity of condition. TECHNIQUE: Axial images acquired through the brain without intravenous contrast. Images stored on PACS. Automated exposure control was used as a dose optimization technique for this examination. COMPARISON: 09/06/2024 FINDINGS: BRAIN: No hemorrhage, edema or mass effect. No recent infarct. Normal white matter. EXTRA-AXIAL SPACES: No fluid collections. No masses. CALVARIUM: No fracture. SINUSES/MASTOIDS: No fluid or mucosal thickening. ORBITS: No significant abnormality. OTHER: No other significant abnormality. IMPRESSION: No acute intracranial findings. THIS IS AN ELECTRONICALLY VERIFIED FINAL REPORT 10/15/2024 6:32 AM - Electronically signed by Jose Church M.D. RB T: Report ID: [id number] Reading Location: [id number] Procedure Note Jose Church MD - 10/15/2024 EXAM DESCRIPTION: CT HEAD WO CONTRAST REASON FOR STUDY: Mental status change, unknown cause Radha Easton is a 54 y.o. female, with PMHx significant for but notlimited to what's listed below, brought in by ambulance from home, presenting to the emergency department with complaints of worsening shortness of breath forthe past 3 days. EMS relates patient's oxygen saturation was 81% on roomair upon their arrival. They placed patient on a non-rebreather improving her oxygen saturation up to mid 90s. In the ED, patient admits to lowerextremity edema, orthopnea and paroxysmal nocturnal dyspnea. She also relates intermittent, central, aching, nonradiating chest pain. She deniespalliating or exacerbating factors. Patient intermittently tearful with strong odorof alcohol on breath. Patient is a poor historian at this time secondaryto alcohol intoxication and acuity of condition. TECHNIQUE: Axial images acquired through the brain without intravenous contrast. Images stored on PACS. Automated exposure control was used asa dose optimization technique for this examination. COMPARISON: 09/06/2024 FINDINGS: BRAIN: No hemorrhage, edema or mass effect. No recent infarct. Normal white matter. EXTRA-AXIAL SPACES: No fluid collections. No masses. CALVARIUM: No fracture. SINUSES/MASTOIDS: No fluid or mucosal thickening. ORBITS: No significant abnormality. OTHER: No other significant abnormality. IMPRESSION: No acute intracranial findings. THIS IS AN ELECTRONICALLY VERIFIED FINAL REPORT 10/15/2024 6:32 AM - Electronically signed by Jsoe Church M.D. RB T: Report ID: [id number] Reading Location: [place] [address] us Jailyn Hensley MD IMG CT PROCEDURES Final Result * Troponin T high-sensitivity 4-hour (10/14/2024 10:39 PM CDT) Trop T hs 14 <=14 ng/L Comment: Interpretive Data For further hscTnT resources including the diagnostic algorithm and an aid in interpretation, copy and paste this link: https://nrl.testcatalog.org/show/hsTrop Current Interpretive Data last revised 2020. Trop T hs delta -10 ng/L [facility] Trop T hs interp Equivocal [facility] Blood 10/14/2024 10:3 9 PM CDT 10/14/2024 10:41 PM CDT us Yasmine Dowling MD LAB BLOOD ORDERABLES F inal Result [facility] [address] [facility] [place] [address] * Urinalysis reflex to microscopic and culture Urine (10/14/2024 9:55 PM CDT) Color, ur Straw Yellow Clarity, ur Clear Clear [facility] Specific gravity, ur 1.003 1.003 - 1.030 [facility] pH, urine 6.0 [facility] Comment: Interpretive Data U rine pH is affected by diet, medications, systemic acid-base disturbances, and renal tubular function. pH may affect urinary stone formation. For example, urine pH below 6.0 may help reduce the tendency for calcium phosphate stones and pH greater than 6.0 may reduce the tendency for uric acid stone formation. Source: [facility] Current Interpretive Data was last revised on 2017 Protein, ur ql Negative Negative [facility] Glucose, ur ql Negative Negative [facility] Ketones, ur Negative Negative [facility] Bilirubin, ur Negative Negative [facility] Blood, ur Negative Negative [facility] Urobilinogen, ur <2.0 <2.0 mg/dL [facility] Nitrite, ur Negative Negative [facility] Leukocyte esterase, ur Negative Negative [facility] UA reflex comment Reflex conditions for microscopic UA and culture not met. [facility] Urine 10/14/2024 9:55 PM CDT 10/14/2024 9:57 PM CDT us Yasmine Dowling MD LAB MICROBIOLOGY - GEN ERAL ORDERABLES Final Result Performing Organization Address City/[facility]/ZIP Co de Phone Number [address] [place] [address] * (ABNORMAL) Sepsis Lactate w/ Reflex (10/14/2024 9:24 PM CDT) [facility] Sepsis Lactate 2.2(H) 0.7 - 2.0 mmol/L Blood 10/14/2024 9:24 PM CDT 10/14/2024 9:28 PM CDT Yasmine Dowling MD LAB BLOOD ORDERABLES F inal Result Performing Organization Address City/[facility]/ZIP Co de Phone Number [address] [place] [address] * (ABNORMAL) Troponin T high-sensitivity 2-hour (10/14/2024 7:45 PM CDT) Trop T hs 17(H) <=14 ng/L Comment: Interpretive Data For further hscTnT resources including the diagnostic algorithm and an aid in interpretation, copy and paste this link: https://nrl.testcatalog.org/show/hsTrop Current Interpretive Data last revised 2020. Trop T hs delta -7 ng/L [facility] Trop T hs interp Equivocal [facility] Blood 10/14/2024 7:45 PM CDT 10/14/2024 7:50 PM CDT us Yasmine Dowling MD LAB BLOOD ORDERABLES F inal Result [facility] [address] [facility] [place] [address] * Blood culture Blood Peripheral (10/14/2024 7:45 PM CDT) Report Final Report: No growth Comment:Testing performed by : [facility] [place] [facility], [address] [place]., [address] Blood (Peripheral) 10/14/2024 7:45 PM CDT 10/15/2024 12:18 AM CDT Narrative W[facility]AM - 10/19/2024 7:00 AM CDT From a different site than #1. Draw Blood cultures before administration of Antibiotics Collection->Peripheral 1. Blood cultures are incubated for 4 days on a continuously monitored blood culture system. The first report of a negative culture is issued within 24 hours of receipt of the specimen in the laboratory. 2. Positive culture results are reported as soon as they are detected. 3. The most important factor for detection of microbes in the setting of bloodstream infection is the volume of blood submitted for culture. Failure to collect an optimal blood volume can result in false negative blood cultures. 4. For pediatric patients, the recommended blood volume to collect follows a weight based strategy. See the electronic test catalog for collection instructions. 5. For positive blood cultures, a rapid molecular test may be performed for organism identification using the hima ePlex blood culture identification panel for gram positive (BCID-GP) and gram negative (BCID-GN) organisms. This nucleic acid amplification test detects microbial DNA in positive blood culture broth. This assay has been cleared by the [place] Food and Drug Administration and its performance characteristics have been verified by the [facility] [place] [facility] Microbiology Laboratory. For questions about this culture, contact the Microbiology Laboratory at [phone]. Interpretive data was last revised on 24. Yasmine Dowling MD LAB MICROBIOLOGY - GEN ERAL ORDERABLES Final Result Performing Organization Address City/[facility] Co de Phone Number W[facility] [address] [address] * (ABNORMAL) Ethanol (10/14/2024 7:45 PM CDT) Pathologist [facility] Ethanol 244(H) <=10 mg/dL Comment: Interpretive Data Legal limit of intoxication > or = 80 mg/dL Levels > or = 400 mg/dL are potentially TOXIC. Current interpretive data was last revised on 2018. Blood 10/14/2024 7:45 PM CDT 10/14/2024 7:50 PM CDT Yasmine Dowling MD LAB BLOOD ORDERABLES F inal Result Performing Organization Address [facility] Co de Phone Number [facility] [address] * Blood culture Blood Peripheral (10/14/2024 7:39 PM CDT) Pathologist [facility] Report Final Report: No growth Comment:Testing performed by : [facility] [place] [facility], [address] [place] [address] Blood (Peripheral) 10/14/2024 7:39 PM CDT 10/15/2024 12:18 AM CDT Narrative WISAM - 10/19/2024 7:00 AM CDT Draw Blood cultures before administration of Antibiotics Collection->Peripheral 1. Blood cultures are incubated for 4 days on a continuously monitored blood culture system. The first report of a negative culture is issued within 24 hours of receipt of the specimen in the laboratory. 2. Positive culture results are reported as soon as they are detected. 3. The most important factor for detection of microbes in the setting of bloodstream infection is the volume of blood submitted for culture. Failure to collect an optimal blood volume can result in false negative blood cultures. 4. For pediatric patients, the recommended blood volume to collect follows a weight based strategy. See the electronic test catalog for collection instructions. 5. For positive blood cultures, a rapid molecular test may be performed for organism identification using the hima ePlex blood culture identification panel for gram positive (BCID-GP) and gram negative (BCID-GN) organisms. This nucleic acid amplification test detects microbial DNA in positive blood culture broth. This assay has been cleared by the [place] Food and Drug Administration and its performance characteristics have been verified by the [facility] [place] [facility] Microbiology Laboratory. For questions about this culture, contact the Microbiology Laboratory at [phone]. Interpretive data was last revised on 24. Yasmine Dowling MD LAB MICROBIOLOGY - GEN ERAL ORDERABLES Final Result [place] [id number] [facility] [place] [address] * (ABNORMAL) POC Blood Gas and Chemistries, Arterial - (10/14/2024 6:41 PM CDT) pH, art POC 7.35 7.35 - 7.45 pCO2, art POC 46(H) 35 - 45 mmHg [facility] pO2, art POC 190(H) 83 - 108 mmHg [facility] HCO3, art (Calc) POC 25 20 - 30 mmol/L [facility] Base excess, art POC 0 mmol/L [facility] Comment: Interpretive Data No reference range established. Current interpretive data was last revised 2019. O2 Sat, art (Calc) POC 100(H) 94 - 98 % [facility] Oxy Hgb, art POC 95.3(H) 90.0 - 95.0 % [facility] Met Hgb, art POC 0.8 0.0 - 1.9 % [facility] Carboxy Hgb, art POC 3.9(H) 0.0 - 2.9 % [facility] Hemoglobin, art POC 9.5(L) 11.9 - 15.5 g/dL [facility] Sodium, art POC 137 135 - 145 mmol/L [facility] Potassium, art POC 3.5 3.3 - 4.9 mmol/L [facility] Comment: Interpretive Data This method is not able to assess for hemolysis, which may falsely increase potassium concentrations. If further testing is needed to evaluate this result, consider in-laboratory plasma potassium. Current Interpretive Data was last revised on 2021. Glucose, art POC 93 70 - 199 mg/dL [facility] Ionized Calcium, art POC 4.68 4.50 - 5.10 mg/dL [facility] Lactate, art POC 2.5(H) 0.7 - 2.0 mmol/L [facility] Blood 10/14/2024 6:41 PM CDT 10/14/2024 6:41 PM CDT Yasmine Dowling MD LAB POCT ORDERABLES - DEVICE Final Result Performing Organization Address City/State/[facility] Co de Phone Number [facility] [place] [address] * XR Chest 1 Vw Portable (10/14/2024 6:31 PM CDT) Anatomical Region Laterality Modality Body, Chest N/A Computed Radiogr aphy 10/14/2024 8:06 PM CDT Narrative 10/14/2024 8:07 PM CDT EXAM DESCRIPTION: XR CHEST 1 VIEW REASON FOR STUDY: SOB Shortness of breath HX COPD TECHNIQUE: 1 radiographic view(s) of the chest. COMPARISON: 10/06/2024 FINDINGS: LUNGS: No focal opacity, pleural effusion, or pneumothorax. There are atelectatic changes at the lung bases. HEART/MEDIASTINUM: Cardiac silhouette normal in size. Mediastinal and hilar contours appear normal. LINES/TUBES: None. BONES: No acute osseous abnormality. IMPRESSION: No acute cardiopulmonary abnormality. THIS IS AN ELECTRONICALLY VERIFIED FINAL REPORT 10/14/2024 8:07 PM - Electronically signed by Ja Antonio M.D. KT T: Report ID: [id number] Reading Location: [id number] Procedure Note Ja Antonio MD - 10/14/2024 EXAM DESCRIPTION: XR CHEST 1 VIEW REASON FOR STUDY: SOB Shortness of breath HX COPD TECHNIQUE: 1 radiographic view(s) of the chest. COMPARISON: 10/06/2024 FINDINGS: LUNGS: No focal opacity, pleural effusion, or pneumothorax.There are atelectatic changes at the lung bases. HEART/MEDIASTINUM: Cardiac silhouette normal in size. Mediastinal andhilar contours appear normal. LINES/TUBES: None. BONES: No acute osseous abnormality. IMPRESSION: No acute cardiopulmonary abnormality. THIS IS AN ELECTRONICALLY VERIFIED FINAL REPORT 10/14/2024 8:07 PM - Electronically signed by Ja Antonio M.D. KT T: Report ID: [id number] Reading Location: [id number] us Yasmine Dowling MD IMG XR PROCEDURES Joslyn l Result * (ABNORMAL) Troponin T high-sensitivity series (baseline, 2hr, 4hr, 6hr) (10/14/2024 6:09 PM CDT) Pathologist [facility] Trop T hs 24(H) <=14 ng/L Comment: Interpretive Data For further hscTnT resources including the diagnostic algorithm and an aid in interpretation, copy and paste this link: https://nrl.testcatalog.org/show/hsTrop Current Interpretive Data last revised 2020. Blood 10/14/2024 6:09 PM CDT 10/14/2024 6:12 PM CDT us Yasmine Dowling MD LAB BLOOD ORDERABLES F inal Result [facility] [address] [facility] [place] [address] * (ABNORMAL) Sepsis Lactate w/ Reflex (10/14/2024 6:09 PM CDT) Pathologist [facility] Sepsis Lactate 2.8(H) 0.7 - 2.0 mmol/L Blood 10/14/2024 6:09 PM CDT 10/14/2024 6:11 PM CDT Yasmine Dowling MD LAB BLOOD ORDERABLES F inal Result Performing Organization Address [facility] Co de Phone Number W[facility]AM [address] [place] [address] * eGFR (10/14/2024 6:09 PM CDT) eGFR >90 >=60 mL/min/1. 73 m2 Comment: Interpretive Data Reference Interval Normal >/= 90 mL/min/1.73m2 Mildly decreased* 60 - 89 mL/min/1.73m2 Mildly to moderately decreased 45 - 59 mL/min/1.73m2 Moderately to severely decreased 30 - 44 mL/min/1.73m2 Severely decreased 15 - 29 mL/min/1.73m2 Kidney Failure < 15 mL/min/1.73m2 *Relative to young adult level Estimated glomerular filtration rate is determined by the 2020 CKD-EPI equation recommended by the National Kidney Foundation (A Unifying Approach to GFR Estimation: Recommendations of the NKF-ASK Task Force on Reassessing the Inclusion of Race in Diagnosing Kidney Disease, JASN 2020). The CKD-EPI equation should not be used for patients with unstable renal function and has not been validated in children and those over 70. Current interpretive data was last reviewed 2021. Blood 10/14/2024 6:09 PM CDT 10/14/2024 6:12 PM CDT Yasmine Dowling MD LAB BLOOD ORDERABLES F inal Result Performing Organization Address [facility]/ZIP Co de Phone Number WISAM [address] [place] [address] * Pro B-type natriuretic peptide (10/14/2024 6:09 PM CDT) NT-proBNP 251 <=300 pg/mL Comment: Interpretive Comments: A. Dyspnea in Acute Care Setting All Ages: < 300 pg/ml, acute heart failure unlikely. < 50 yrs: 300 - 450 pg/ml, further investigation warranted. > 450 pg/ml, acute heart failure likely. 50 - 74 yrs: 300 - 900 pg/ml, further investigation warranted. > 900 pg/ml, acute heart failure likely . > or = 75 yrs: 450 - 1800 pg/ml, further investigation warranted. > 1800 pg/ml, acute heart failure likely. B. Non-acute Setting < 75 yrs < 125 pg/ml, rules out heart failure. > or = 125 pg/ml, further investigation warranted. > or = 75 yrs < 450 pg/ml, rules out heart failure. > or = 450 pg/ml, further investigation warranted. - Knowledge of each individual patient's NT-proBNP range may be more useful than using similar cut-points for every patient. Please note that marked elevations in NT-proBNP levels may be observed in state other than Left Ventricular Congestive Failure, including: acute coronary syndromes, right heart strain/failure (including pulmonary embolism and cor pulmonale), critical illness, renal failure, as well as advanced age. - References: 1. Dat CARRERA et.al. Eur Heart J. 2006:27:330-337. 2. Cj RW, Cyndi AM. J. AM Aruna Cardiol: Cardiovasc Imag. 2009;2: 216- 225. Interpretive Data Last Revised Date: 2017. Blood 10/14/2024 6:09 PM CDT 10/14/2024 6:12 PM CDT Yasmine Dowling MD LAB BLOOD ORDERABLES F inal Result [facility] [address] [facility] Department of Laboratories [place], [place] [id number] * Thyroid Function [place] (10/14/2024 6:09 PM CDT) TSH 1.29 0.30 - 4.20 mcIUnit/mL Blood 10/14/2024 6:09 PM CDT 10/14/2024 6:12 PM CDT us Yasmine Dowling MD LAB BLOOD ORDERABLES F inal Result Performing Organization Address [facility] Co de Phone Number [address] [address] * (ABNORMAL) CBC with auto differential (10/14/2024 6:09 PM CDT) [facility] WBC 8.21 3.80 - 9.90 K/cumm Hgb 9.3(L) 11.9 - 15.5 g/dL [facility] Hct 30.3(L) 35.6 - 45.5 % [facility] Plt 409(H) 150 - 400 K/cumm [facility] MPV 8.7(L) 9.1 - 12.3 fL [facility] RBC 3.28(L) 3.90 - 5.20 M/cumm [facility] MCV 92.4 81.3 - 96.4 fL [facility] MCH 28.4 27.1 - 33.3 pg [facility] MCHC 30.7(L) 32.3 - 35.7 g/dL [facility] RDW CV 16.5(H) 11.1 - 14.9 % [facility] RDW SD 55.4(H) 35.7 - 48.1 fL [facility] NRBC abs 0.00 0.00 - 0.01 K/cumm [facility] Blood 10/14/2024 6:09 PM CDT 10/14/2024 6:12 PM CDT Yasmine Dowling MD LAB BLOOD ORDERABLES E dited Result - Final Performing Organization Address City/[facility]/ZIP Co de Phone Number [address] [address] * (ABNORMAL) Manual Differential (10/14/2024 6:09 PM CDT) [facility] Differential Manual Cells Counted 100 [facility] Neutrophil abs 1.89 1.50 - 6.50 K/cumm [facility] Lymphocyte abs 5.66(H) 0.80 - 3.30 K/cumm [facility] Monocyte abs 0.49 0.20 - 0.80 K/cumm [facility] Eosinophil abs 0.16 0.00 - 0.50 K/cumm [facility] Neutrophil pct 23.0 % [facility] Comment: Interpretive Data Percent cell count reference ranges are not reported, since discordance with absolute values may lead to misinterpretation of CBC data. Current Interpretive Data was last revised on 2017. Lymphocyte pct 64.0 % [facility] Comment: Interpretive Data Percent cell count reference ranges are not reported, since discordance with absolute values may lead to misinterpretation of CBC data. Current Interpretive Data was last revised on 2017. Monocyte pct 6.0 % [facility] Comment: Interpretive Data Percent cell count reference ranges are not reported, since discordance with absolute values may lead to misinterpretation of CBC data. Current Interpretive Data was last revised on 2017. Eosinophil pct 2.0 % [facility] Comment: Interpretive Data Percent cell count reference ranges are not reported, since discordance with absolute values may lead to misinterpretation of CBC data. Current Interpretive Data was last revised on 2017. Variant lymph pct 5.0(H) 0.0 - 0.0 % [facility] RBC morphology Present(A) [facility] Hypochromasia 3-7/HPF(A) [facility] Platelet estimate Automated Count Confirmed [facility] Blood 10/14/2024 6:09 PM CDT 10/14/2024 6:12 PM CDT us Yasmine Dowling MD LAB BLOOD ORDERABLES F inal Result [facility] [address] [facility] [place] [address] * Protime-INR (10/14/2024 6:09 PM CDT) PT 14.30 12.00 - 14.60 sec INR 1.09 0.90 - 1.20 [facility] Comment: Interpretive data Oral anticoagulant therapeutic ranges: Venous thromboembolism prophylaxis or treatment: 2.0-3.0 CARDIOLOGY Standard range: 2.0-3.0 High-intensity range: 2.5-3.5 Refer to indication-specific guidelines for appropriate target ranges for prosthetic heart valve replacement. Current interpretive data was last revised on 2019. Blood 10/14/2024 6:09 PM CDT 10/14/2024 6:12 PM CDT us Yasmine Dowling MD LAB BLOOD ORDERABLES F inal Result Performing Organization Address City/[facility] Co de Phone Number WISAM [address] [address] * (ABNORMAL) D-dimer, quantitative (10/14/2024 6:09 PM CDT) D-Dimer 1,580(H) <=499 ng/mL FEU Comment: Interpretive data FDA approved the D-dimer, in conjunction with a low or moderate pretest probability score, to exclude venous thromboembolic events (VTE) (PE and DVT) in outpatients when the D-dimer result is < 500 ng/ml FEU. Evidence supports using an age-adjusted D-dimer cut-off for outpatients older than 50 (age x 10) to improve specificity without sacrificing sensitivity. Example: age 68, VTE cut-off 680 ng/ml FEU. References; Schouten HT et al. Brit Med J. 2013;346:f2492. Kathy et al. Annals Int Med. 2015;163:701-11. Current interpretive data was last revised on 2019. Blood 10/14/2024 6:09 PM CDT 10/14/2024 6:12 PM CDT us Jailyn Hensley MD LAB BLOOD ORDERABLES Fin al Result Performing Organization Address [facility] Co de Phone Number WISAM [address] [address] * Phosphorus (10/14/2024 6:09 PM CDT) Phosphorus, pl 4.1 2.3 - 4.5 mg/dL Blood 10/14/2024 6:09 PM CDT 10/14/2024 6:12 PM CDT Yasmine Dowling MD LAB BLOOD ORDERABLES F inal Result Performing Organization Address City/[facility] Co de Phone Number [address] [place] [address] * Magnesium (10/14/2024 6:09 PM CDT) [facility] Magnesium 2.1 1.4 - 2.5 mg/dL Blood 10/14/2024 6:09 PM CDT 10/14/2024 6:12 PM CDT Yasmine Dowling MD LAB BLOOD ORDERABLES F inal Result Performing Organization Address [facility] de Phone Number [address] [address] * (ABNORMAL) Comprehensive metabolic panel (10/14/2024 6:09 PM CDT) [facility] Sodium 136 135 - 145 mmol/L Potassium, pl 3.5 3.3 - 4.9 mmol/L [facility] Chloride 99 97 - 110 mmol/L [facility] CO2 26 22 - 32 mmol/L [facility] Anion gap 11 2 - 15 mmol/L [facility] BUN 4(L) 6 - 25 mg/dL [facility] Creatinine 0.59(L) 0.60 - 1.10 mg/dL [facility] Glucose 112 70 - 199 mg/dL [facility] Comment: Interpretive Data Fasting glucose >/= 126 mg/dl is diagnostic for diabetes. Fasting is defined as no caloric intake for at least 8 hours. Fasting glucose between 100 mg/dl to 125 mg/dl is diagnostic of prediabetes. In a patient with classic symptoms of hyperglycemia or hyperglycemic crisis, a random glucose >/= 200 mg/dl is diagnostic for diabetes. In the absence of unequivocal hyperglycemia, results should be confirmed by repeat testing. The classification and Diagnosis of Diabetes Diabetes Care 202; 46: S19-S40. Current interpretive data was last revised 2022. Calcium 8.4(L) 8.5 - 10.3 mg/dL [facility] Bilirubin, total 0.3 0.1 - 1.2 mg/dL [facility] Protein, pl 6.8 6.5 - 8.5 g/dL [facility] Albumin 3.3(L) 3.5 - 5.0 g/dL [facility] Alk phos 90 40 - 130 Units/L [facility] ALT 7 7 - 45 Units/L [facility] AST 15 10 - 45 Units/L [facility] Blood 10/14/2024 6:09 PM CDT 10/14/2024 6:12 PM CDT us Yasmine Dowling MD LAB BLOOD ORDERABLES F inal Result Performing Organization Address City/[facility]/ZIP Co de Phone Number WISAM [address] [facility] [place] [address] * ECG 12 lead (10/14/2024 5:58 PM CDT) Pathologist [facility] Ventricular Rate EKG/Min 94 BPM [facility] Atrial Rate 94 BPM [facility] [place]-Interval (MSEC) 152 ms [facility] QRS-Interval (MSEC) 100 ms [facility] QT-Interval (MSEC) 378 ms [facility] QTc 472 ms [facility] P [place] 34 degrees [facility] R [place] 48 degrees [facility] T [place] 65 degrees [facility] Diagnosis Normal sinus rhythm Normal ECG When compared with ECG of 06-OCT-2024 15:35, No significant change was found Confirmed by SULTAN MORGAN M.D. ([id number]) on 10/14/2024 9:20:24 PM [facility] 10/14/2024 5:58 PM CDT 10/14/2024 9:20 PM CDT us Yasmine Dowling MD ECG ORDERABLES Final Result Performing Organization Address [facility]/ZIP Co de Phone Number [facility] [employer] * MRI Cervical Spine W WO Contrast (10/07/2024 2:14 PM CDT) Anatomical Region Laterality Modality Spine N/A Magnetic Resonan ce 10/07/2024 2:32 PM CDT Narrative 10/07/2024 2:42 PM CDT EXAM DESCRIPTION: MRI CERVICAL SPINE W WO CONTRAST REASON FOR STUDY: Neck pain, chronic, acute on chronic neck pain, w hx of MS and disc disease Chronic neck pain, hx of MS TECHNIQUE: Sagittal and Axial imaging includes T1, T2, STIR and gradient echo sequences. Post contrast T1-weighted images. CONTRAST TYPE/DOSE: 20mL of GADOTERATE MEGLUMINE 0.5 MMOL/ML INTRAVENOUS SOLUTION (SO) injected via intravenous COMPARISON: Cervical spine CT dated 06/07/2024, 01/21/2024 and 10/08/2021. Cervical spine radiographs dated 04/15/2024. FINDINGS: ALIGNMENT: There is mild anterolisthesis of C3 on C4 through C5 on C6 VERTEBRAE: Xkun-sk-hlgtzluo endplate degenerative changes and marginal spur formation. More advanced facet arthropathy. The C4-C5 right facet joint STIR signal is nonspecific and could reflect synovitis in the proper clinical scenario. If trauma is suspected then a CT has higher sensitivity for spinal fractures and can be obtained as clinically indicated. DISCS: Multilevel disc desiccation and height loss. HARDWARE: None in the spine. CORD: The evaluation is degraded by patient motion and pulsation related artifact. Patchy T2 hyperintense cord signal including at C4-C5 and C5-C6 could be motion related artifact or patient's provided history of multiple sclerosis. There is no enhancing plaque. C2-C3: No significant disc bulge or spinal canal stenosis. Uncovertebral spurring and uqoz-vsubhjn-nvto-right facet arthropathy with xcfb-pc-tuwmsuri left and no significant right neural foraminal narrowing. C3-C4: Posterior disc osteophyte complex without significant spinal canal stenosis. Uncovertebral spurring and gtxeo-kxbiznf-jiyi-left facet arthropathy with moderate to severe right and mild left neural foraminal narrowing. C4-C5: Posterior disc osteophyte complex and thickened ligamentum flavum. Mild spinal canal stenosis. Uncovertebral spurring and fogtq-yvsfgzj-jzpe-left facet arthropathy with moderate right and mild left neural foraminal narrowing. C5-C6: Posterior disc osteophyte complex and thickened ligamentum flavum. Fttx-jr-bmaythao spinal canal stenosis. Uncovertebral spurring and facet arthropathy with uplc-vh-xyvhuzmy neural foraminal narrowing. C6-C7: Posterior disc osteophyte complex indents the ventral cord. Thickened ligamentum flavum. Tlkv-gd-bbbiqxsv spinal canal stenosis. Uncovertebral spurring and facet arthropathy with mild neural foraminal narrowing. C7-T1: No significant disc bulge, spinal canal or neural foraminal narrowing. UPPER THORACIC: Incompletely imaged. No high-grade spinal canal stenosis. IMPRESSION: 1. There is no enhancing cervical cord lesion. 2. Gvof-zs-swxuqlof cervical disc degeneration with thickened ligamentum flavum, uncovertebral spurring and severe facet arthropathy as described. The spinal canal narrowing is most noticeable at C5-C6 and C6-C7. 3. Varying degrees of bilateral neural foraminal stenosis and additional findings as above. THIS IS AN ELECTRONICALLY VERIFIED FINAL REPORT 10/07/2024 2:42 PM - Electronically signed by Gt BROCK T: Report ID: [id number] Reading Location: [place] [address] Procedure Note Gt Augustin, DO - 10/07/2024 EXAM DESCRIPTION: MRI CERVICAL SPINE W WO CONTRAST REASON FOR STUDY: Neck pain, chronic, acute on chronic neck pain, w hxof MS and disc disease Chronic neck pain, hx of MS TECHNIQUE: Sagittal and Axial imaging includes T1, T2, STIR and gradientecho sequences. Post contrast T1-weighted images. CONTRAST TYPE/DOSE: 20mL of GADOTERATE MEGLUMINE 0.5 MMOL/ML INTRAVENOUS SOLUTION (SO) injected via intravenous COMPARISON: Cervical spine CT dated 06/07/2024, 01/21/2024 and10/08/2021. Cervical spine radiographs dated 04/15/2024. FINDINGS: ALIGNMENT: There is mild anterolisthesis of C3 on C4 throughC5 on C6 VERTEBRAE: Lomu-ki-kurdidnp endplate degenerative changes and marginalspur formation. More advanced facet arthropathy. The C4-C5 right facet jointSTIR signal is nonspecific and could reflect synovitis in the proper clinical scenario. If trauma is suspected then a CT has higher sensitivity forspinal fractures and can be obtained as clinically indicated. DISCS: Multilevel disc desiccation and height loss. HARDWARE: None in the spine. CORD: The evaluation is degraded by patient motion and pulsation related artifact. Patchy T2 hyperintense cord signal including at C4-C5 and C5-C6 could be motion related artifact or patient's provided history of multiple sclerosis. There is no enhancing plaque. C2-C3: No significant disc bulge or spinal canal stenosis. Uncovertebral spurring and ldog-iqgyorj-ebsp-right facet arthropathy umdaqnxb-mk-yvugwxqy left and no significant right neural foraminal narrowing. C3-C4: Posterior disc osteophyte complex without significant spinal canal stenosis. Uncovertebral spurring and yrvku-bhuoqcn-nmgu-left facet arthropathy with moderate to severe right and mild left neural foraminal narrowing. C4-C5: Posterior disc osteophyte complex and thickened ligamentum flavum. Mild spinal canal stenosis. Uncovertebral spurring and lqvzw-bjsyako-bwtl-left facet arthropathy with moderate right and mildleft neural foraminal narrowing. C5-C6: Posterior disc osteophyte complex and thickened ligamentum flavum. Ioci-vz-tffpyobq spinal canal stenosis. Uncovertebral spurring and facet arthropathy with cyql-rx-nygcvbrz neural foraminal narrowing. C6-C7: Posterior disc osteophyte complex indents the ventral cord.Thickened ligamentum flavum. Hqpi-qj-inbhrxrg spinal canal stenosis. Uncovertebral spurring and facet arthropathy with mild neural foraminal narrowing. C7-T1: No significant disc bulge, spinal canal or neural foraminalnarrowing. UPPER THORACIC: Incompletely imaged. No high-grade spinal canalstenosis. IMPRESSION: 1. There is no enhancing cervical cord lesion. 2. Omzx-ru-wytzkehs cervical disc degeneration with thickened ligamentum flavum, uncovertebral spurring and severe facet arthropathy as described.The spinal canal narrowing is most noticeable at C5-C6 and C6-C7. 3. Varying degrees of bilateral neural foraminal stenosis and additional findings as above. THIS IS AN ELECTRONICALLY VERIFIED FINAL REPORT 10/07/2024 2:42 PM - Electronically signed by Gt BROCK T: Report ID: [id number] Reading Location: [place] [address] Patricia Jane MD IMAlan MRI PROCEDURES Final Result * eGFR (10/07/2024 2:36 AM CDT) eGFR >90 >=60 mL/min/1. 73 m2 Comment: Interpretive Data Reference Interval Normal >/= 90 mL/min/1.73m2 Mildly decreased* 60 - 89 mL/min/1.73m2 Mildly to moderately decreased 45 - 59 mL/min/1.73m2 Moderately to severely decreased 30 - 44 mL/min/1.73m2 Severely decreased 15 - 29 mL/min/1.73m2 Kidney Failure < 15 mL/min/1.73m2 *Relative to young adult level Estimated glomerular filtration rate is determined by the 2020 CKD-EPI equation recommended by the National Kidney Foundation (A Unifying Approach to GFR Estimation: Recommendations of the NKF-ASK Task Force on Reassessing the Inclusion of Race in Diagnosing Kidney Disease, JASN 202). The CKD-EPI equation should not be used for patients with unstable renal function and has not been validated in children and those over 70. Current interpretive data was last reviewed 2021. Blood 10/07/2024 2:36 AM CDT 10/07/2024 2:48 AM CDT Dar Farrell MD LAB BLOOD ORDERABLES Final Result [place] [id number] [facility] [place] [address] * Differential, auto (10/07/2024 2:36 AM CDT) Pathologist [facility] Neutrophil abs 2.24 1.50 - 6.50 K/cumm Imm gran abs 0.04 0.00 - 0.10 K/cumm [facility] Lymphocyte abs 3.09 0.80 - 3.30 K/cumm [facility] Monocyte abs 0.71 0.20 - 0.80 K/cumm [facility] Eosinophil abs 0.17 0.00 - 0.50 K/cumm [facility] Basophil abs 0.03 0.00 - 0.10 K/cumm [facility] Neutrophil pct 35.7 % [facility] Comment: Interpretive Data Percent cell count reference ranges are not reported, since discordance with absolute values may lead to misinterpretation of CBC data. Current Interpretive Data was last revised on 2017. Imm gran pct 0.6 % [facility] Comment: Interpretive Data Percent cell count reference ranges are not reported, since discordance with absolute values may lead to misinterpretation of CBC data. Current Interpretive Data was last revised on 2017. Lymphocyte pct 49.2 % [facility] Comment: Interpretive Data Percent cell count reference ranges are not reported, since discordance with absolute values may lead to misinterpretation of CBC data. Current Interpretive Data was last revised on 2017. Monocyte pct 11.3 % [facility] Comment: Interpretive Data Percent cell count reference ranges are not reported, since discordance with absolute values may lead to misinterpretation of CBC data. Current Interpretive Data was last revised on 2017. Eosinophil pct 2.7 % [facility] Comment: Interpretive Data Percent cell count reference ranges are not reported, since discordance with absolute values may lead to misinterpretation of CBC data. Current Interpretive Data was last revised on 2017. Basophil pct 0.5 % [facility] Comment: Interpretive Data Percent cell count reference ranges are not reported, since discordance with absolute values may lead to misinterpretation of CBC data. Current Interpretive Data was last revised on 2017. Blood 10/07/2024 2:36 AM CDT 10/07/2024 2:48 AM CDT Dar Farrell MD LAB BLOOD ORDERABLES Final Result [facility] [address] [facility] [place] [address] * (ABNORMAL) CBC with auto differential (10/07/2024 2:36 AM CDT) Pathologist [facility] WBC 6.28 3.80 - 9.90 K/cumm Hgb 9.3(L) 11.9 - 15.5 g/dL [facility] Hct 32.8(L) 35.6 - 45.5 % [facility] Plt 256 150 - 400 K/cumm [facility] MPV 9.0(L) 9.1 - 12.3 fL [facility] RBC 3.26(L) 3.90 - 5.20 M/cumm [facility] MCV 100.6(H) 81.3 - 96.4 fL [facility] MCH 28.5 27.1 - 33.3 pg [facility] MCHC 28.4(L) 32.3 - 35.7 g/dL [facility] RDW CV 16.9(H) 11.1 - 14.9 % [facility] RDW SD 61.9(H) 35.7 - 48.1 fL [facility] NRBC abs 0.00 0.00 - 0.01 K/cumm [facility] Blood 10/07/2024 2:36 AM CDT 10/07/2024 2:48 AM CDT Dar Farrell MD LAB BLOOD ORDERABLES Final Result [facility] [address] [facility] [place] [address] * (ABNORMAL) Comprehensive metabolic panel (10/07/2024 2:36 AM CDT) Sodium 137 135 - 145 mmol/L Potassium, pl 4.0 3.3 - 4.9 mmol/L [facility] Comment:Hemolyzed; Potassium value may be falsely elevated by as much as 1.0 mmol/L. Suggest redraw and reanalysis. Chloride 104 97 - 110 mmol/L [facility] CO2 22 22 - 32 mmol/L [facility] Anion gap 11 2 - 15 mmol/L [facility] BUN 6 6 - 25 mg/dL [facility] Creatinine 0.71 0.60 - 1.10 mg/dL [facility] Glucose 85 70 - 199 mg/dL [facility] Comment: Interpretive Data Fasting glucose >/= 126 mg/dl is diagnostic for diabetes. Fasting is defined as no caloric intake for at least 8 hours. Fasting glucose between 100 mg/dl to 125 mg/dl is diagnostic of prediabetes. In a patient with classic symptoms of hyperglycemia or hyperglycemic crisis, a random glucose >/= 200 mg/dl is diagnostic for diabetes. In the absence of unequivocal hyperglycemia, results should be confirmed by repeat testing. The classification and Diagnosis of Diabetes Diabetes Care 202; 46: S19-S40. Current interpretive data was last revised 2022. Calcium 8.2(L) 8.5 - 10.3 mg/dL [facility] Bilirubin, total 0.5 0.1 - 1.2 mg/dL [facility] Protein, pl 5.7(L) 6.5 - 8.5 g/dL [facility] Albumin 2.6(L) 3.5 - 5.0 g/dL [facility] Alk phos 68 40 - 130 Units/L [facility] ALT 6(L) 7 - 45 Units/L [facility] AST 16 10 - 45 Units/L [facility] Comment:Hemolyzed; result ma y be falsely elevated Blood 10/07/2024 2:36 AM CDT 10/07/2024 2:48 AM CDT Dar Farrell MD LAB BLOOD ORDERABLES Final Result [facility] [address] [facility] [place] [address] * Influenza A/B, RSV, and COVID-19 PCR Nasopharyngeal (10/06/2024 6:32 PM CDT) COVID-19 RNA Negative Negative Influenza A RNA Negative Negative [facility] Influenza B RNA Negative Negative [facility] RSV RNA Negative Negative [facility] Comment: Interpretive data: Testing performed by [facility]. This test is performed using the [employer] Xpert Xpress CoV-2/Flu/RSV plus assay. This is a multiplex, real-time reverse transcriptase PCR assay intended for the qualitative detection of nucleic acid from SARS-CoV-2, influenza A, influenza B, and respiratory syncytial virus. This assay has been cleared by the [place] Food and Drug administration. The performance characteristics have been verified by the [facility]. Results must be considered in the clinical context, and a negative result does not rule out infection. Interpretive Data last revised 2023 Nasopharyngeal 10/06/2024 6: 32 PM CDT 10/06/2024 6:37 PM CDT Narrative [facility] - 10/06/2024 7:15 PM CDT Is the Patient experiencing symptoms consistent with COVID?->Unknown Ja Mcgill LAB MICROBIOLOGY - GENERAL ORDERABLES Final Result [facility] [address] [facility] [place] [address] * CT Recon Thoracic and Lumbar Spine W Contrast (C) (10/06/2024 6:25 PM CDT) Anatomical Region Laterality Modality Spine N/A Computed Tomogra phy 10/06/2024 6:56 PM CDT Addenda Addendum by Rhoda Austin MD on 11/22/2024 12:18 PM CDT ADDENDUM: This addendum report supersedes the original report dated END OF ADDENDUM REPORT THIS IS AN ELECTRONICALLY VERIFIED FINAL REPORT 11/22/2024 12:18 PM Addendum Electronically signed by Rhoda Austin M.D. AB T: Report ID: [id number] Reading Location: [id number] Narrative 10/06/2024 7:08 PM CDT EXAM DESCRIPTION: CT CHEST PE (CTA) W CONTRAST; CT ABDOMEN PELVIS W CONTRAST; CT RECON THORACIC AND LUMBAR SPINE W CONTRAST (C) REASON FOR STUDY: Pulmonary embolism (PE) suspected, high prob Pt BIBEMS [place] a local motel with c/o back pain and chest pain that has been increasing the past few days. Pt is c/o lower back pain with radiation to bilat LE as well upper back pain with radiation to upper chest. Pt states increased pain with coughing/movement. Pt states hx of COPD, CHF and asthma. 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 Pt denies fever, chills or body aches. Pt also reports colostomy place to [facility] x2 months ago. Pt states RN visits due to colostomy. Pt a/o x4. NAD. VSS. Pt states normally ambulatory with walker Hx: asthma, COPD, chf, epilepsy, htn, [place], multiple sclerosis, seizures, thyroid disease, colectomy. ablation ; Abdominal pain, acute, nonlocalized Pt BIBEMS from a local motel with c/o back pain and chest pain that has been increasing the past few days. Pt is c/o lower back pain with radiation to bilat LE as well upper back pain with radiation to upper chest. Pt states increased pain with coughing/movement. Pt states hx of COPD, CHF and asthma. 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 Pt denies fever, chills or body aches. Pt also reports colostomy place to [facility] x2 months ago. Pt states HH RN visits due to colostomy. Pt a/o x4. NAD. VSS. Pt states normally ambulatory with walker Hx: asthma, COPD, chf, epilepsy, htn, [place], multiple sclerosis, seizures, thyroid disease, colectomy. ablation ; Mid-back pain, T-spine fracture, pathological Pt BIBEMS from a local motel with c/o back pain and chest pain that has been increasing the past few days. Pt is c/o lower back pain with radiation to bilat LE as well upper back pain with radiation to upper chest. Pt states increased pain with coughing/movement. Pt states hx of COPD, CHF and asthma. 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 Pt denies fever, chills or body aches. Pt also reports colostomy place to [facility] x2 months ago. Pt states HH RN visits due to colostomy. Pt a/o x4. NAD. VSS. Pt states normally ambulatory with walker Hx: asthma, COPD, chf, epilepsy, htn, [place], multiple sclerosis, seizures, thyroid disease, colectomy. ablation TECHNIQUE: CT angiogram of the chest with routine abdomen and pelvis performed with intravenous and without oral contrast using helical scanning technique with dynamic intravenous contrast injection. Reconstructed coronal and sagittal MPR images reviewed. All images stored on PACS. 3D MIP images of the chest rendered on scanning unit and reviewed at time of interpretation. Automated exposure control was used as a dose optimization technique for this examination. CONTRAST TYPE/DOSE: 92mL of IOVERSOL 350 MG IODINE/ML INTRAVENOUS SYRINGE injected via intravenous COMPARISON: 09/04/2024 FINDINGS: CHEST CHEST VASCULATURE: No acute pulmonary thromboembolism. LUNGS: No nodules or masses. No pneumonia. PLEURA: No effusion. No pneumothorax. MEDIASTINUM/MARIA INES: No identified masses or abnormal nodes. There is a calcified left hilar lymph node. HEART: Heart size is normal with no pericardial effusion. AXILLA: No adenopathy. CHEST WALL: No masses. No subcutaneous air. HARDWARE/LINES/TUBES: None. MUSCULOSKELETAL CHEST: No significant abnormality. ABDOMEN/PELVIS LIVER: Normal size. No identified cystic or solid masses. GALLBLADDER: No stones identified. No wall thickening or inflammatory changes. BILE DUCTS: No intrahepatic or extrahepatic ductal dilatation. SPLEEN: Normal size. No focal lesions. PANCREAS: No identified cystic or solid masses. No significant calcifications. No adjacent inflammation or peripancreatic fluid collections. Pancreatic duct not dilated. ADRENALS: Normal. KIDNEYS/URINARY TRACT: No identified significant cystic or solid masses. No visualized stones. No hydronephrosis or hydroureter. Symmetric enhancement. Urinary bladder is unremarkable. GI: Left lower quadrant ostomy is present. No dilated bowel loops. No obvious wall thickening. Normal appendix. No significant diverticular disease. PERITONEUM: No ascites or free air. RETROPERITONEUM: No mass or adenopathy. REPRODUCTIVE: No significant abnormality. VASCULATURE ABDOMEN: No abdominal aortic aneurysm. MUSCULOSKELETAL ABDOMEN PELVIS: Multilevel degenerative changes are present without fracture. No concerning lesions are present. OTHER: No significant abnormality. IMPRESSION: No evidence of pulmonary embolism. No evidence of acute disease in the chest. No evidence of acute disease in the abdomen or pelvis. Left lower quadrant ostomy. THIS IS AN ELECTRONICALLY VERIFIED FINAL REPORT 10/06/2024 7:08 PM - Electronically signed by Rhoda Austin M.D. AB T: Report ID: [id number] Reading Location: [id number] Procedure Note Rhoda Austin MD - 10/06/2024 EXAM DESCRIPTION: CT CHEST PE (CTA) W CONTRAST; CT ABDOMEN PELVIS WCONTRAST; CT RECON THORACIC AND LUMBAR SPINE W CONTRAST (C) REASON FOR STUDY: Pulmonary embolism (PE) suspected, high prob Pt BIBEMS from a local motel with c/o back pain and chest pain that hasbeen increasing the past few days. Pt is c/o lower back pain withradiation to bilat LE as well upper back pain with radiation to upper chest. Ptstates increased pain with coughing/movement. Pt states hx of COPD, CHF and asthma. 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 Pt denies fever, chills or body aches. Pt also reports colostomy placeto [facility] x2 months ago. Pt states HH RN visits due to colostomy. 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 NAD. VSS. Pt states normally ambulatory with walker Hx: asthma,COPD, chf, epilepsy, htn, [place], multiple sclerosis, seizures, thyroid disease, colectomy. ablation ; Abdominal pain, acute, nonlocalized Pt BIBEMS from a local motel with c/o back pain and chest pain that hasbeen increasing the past few days. Pt is c/o lower back pain withradiation to bilat LE as well upper back pain with radiation to upper chest. Ptstates increased pain with coughing/movement. Pt states hx of COPD, CHF and asthma. 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 Pt denies fever, chills or body aches. Pt also reports colostomy placeto [facility] x2 months ago. Pt states HH RN visits due to colostomy. 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 NAD. VSS. Pt states normally ambulatory with walker Hx: asthma,COPD, chf, epilepsy, htn, [place], multiple sclerosis, seizures, thyroid disease, colectomy. ablation ; Mid-back pain, T-spine fracture,pathological Pt BIBEMS from a local motel with c/o back pain and chest pain that hasbeen increasing the past few days. Pt is c/o lower back pain withradiation to bilat LE as well upper back pain with radiation to upper chest. Ptstates increased pain with coughing/movement. Pt states hx of COPD, CHF and asthma. 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 Pt denies fever, chills or body aches. Pt also reports colostomy placeto [facility]Q x2 months ago. Pt states HH RN visits due to colostomy. 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 NAD. VSS. Pt states normally ambulatory with walker Hx: asthma,COPD, chf, epilepsy, htn, [place], multiple sclerosis, seizures, thyroid disease, colectomy. ablation TECHNIQUE: CT angiogram of the chest with routine abdomen and pelvisperformed with intravenous and without oral contrast using helical scanningtechnique with dynamic intravenous contrast injection. Reconstructed coronal and sagittal MPR images reviewed. All images stored on PACS. 3D MIP images ofthe chest rendered on scanning unit and reviewed at time of interpretation. Automated exposure control was used as a dose optimization technique forthis examination. CONTRAST TYPE/DOSE: 92mL of IOVERSOL 350 MG IODINE/ML INTRAVENOUS SYRINGE injected via intravenous COMPARISON: 09/04/2024 FINDINGS: CHEST CHEST VASCULATURE: No acute pulmonary thromboembolism. LUNGS: No nodules or masses. No pneumonia. PLEURA: No effusion. No pneumothorax. MEDIASTINUM/MARIA INES: No identified masses or abnormal nodes. There is a calcified left hilar lymph node. HEART: Heart size is normal with no pericardial effusion. AXILLA: No adenopathy. CHEST WALL: No masses. No subcutaneous air. HARDWARE/LINES/TUBES: None. MUSCULOSKELETAL CHEST: No significant abnormality. ABDOMEN/PELVIS LIVER: Normal size. No identified cystic or solid masses. GALLBLADDER: No stones identified. No wall thickening or inflammatory changes. BILE DUCTS: No intrahepatic or extrahepatic ductal dilatation. SPLEEN: Normal size. No focal lesions. PANCREAS: No identified cystic or solid masses. No significant calcifications. No adjacent inflammation or peripancreatic fluidcollections. Pancreatic duct not dilated. ADRENALS: Normal. KIDNEYS/URINARY TRACT: No identified significant cystic or solid masses.No visualized stones. No hydronephrosis or hydroureter. Symmetricenhancement. Urinary bladder is unremarkable. GI: Left lower quadrant ostomy is present. No dilated bowel loops. No obvious wall thickening. Normal appendix. No significant diverticular disease. PERITONEUM: No ascites or free air. RETROPERITONEUM: No mass or adenopathy. REPRODUCTIVE: No significant abnormality. VASCULATURE ABDOMEN: No abdominal aortic aneurysm. MUSCULOSKELETAL ABDOMEN PELVIS: Multilevel degenerative changes arepresent without fracture. No concerning lesions are present. OTHER: No significant abnormality. IMPRESSION: No evidence of pulmonary embolism. No evidence of acutedisease in the chest. No evidence of acute disease in the abdomen or pelvis. Left lower quadrant ostomy. THIS IS AN ELECTRONICALLY VERIFIED FINAL REPORT 10/06/2024 7:08 PM - Electronically signed by Rhoda CHAVIS T: Report ID: [id number] Reading Location: [place] [id number] Ja Mcgill DO IMG CT PROCEDURES Edited Re sult - Final * CT Chest PE (CTA) W Contrast (10/06/2024 6:25 PM CDT) Anatomical Region Laterality Modality Body N/A Computed Tomogra phy 10/06/2024 6:56 PM CDT Addenda Addendum by Rhoda Austin MD on 11/22/2024 12:18 PM CDT ADDENDUM: This addendum report supersedes the original report dated END OF ADDENDUM REPORT THIS IS AN ELECTRONICALLY VERIFIED FINAL REPORT 11/22/2024 12:18 PM Addendum Electronically signed by Rhoda Austin M.D. AB T: Report ID: [id number] Reading Location: [id number] Narrative 10/06/2024 7:08 PM CDT EXAM DESCRIPTION: CT CHEST PE (CTA) W CONTRAST; CT ABDOMEN PELVIS W CONTRAST; CT RECON THORACIC AND LUMBAR SPINE W CONTRAST (C) REASON FOR STUDY: Pulmonary embolism (PE) suspected, high prob Pt BIBEMS from a local motel with c/o back pain and chest pain that has been increasing the past few days. Pt is c/o lower back pain with radiation to bilat LE as well upper back pain with radiation to upper chest. Pt states increased pain with coughing/movement. Pt states hx of COPD, CHF and asthma. 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 Pt denies fever, chills or body aches. Pt also reports colostomy place to [facility] x2 months ago. Pt states RN visits due to colostomy. Pt a/o x4. NAD. VSS. Pt states normally ambulatory with walker Hx: asthma, COPD, chf, epilepsy, htn, [place], multiple sclerosis, seizures, thyroid disease, colectomy. ablation ; Abdominal pain, acute, nonlocalized Pt BIBEMS from a local motel with c/o back pain and chest pain that has been increasing the past few days. Pt is c/o lower back pain with radiation to bilat LE as well upper back pain with radiation to upper chest. Pt states increased pain with coughing/movement. Pt states hx of COPD, CHF and asthma. 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 Pt denies fever, chills or body aches. Pt also reports colostomy place to [facility] x2 months ago. Pt states HH RN visits due to colostomy. Pt a/o x4. NAD. VSS. Pt states normally ambulatory with walker Hx: asthma, COPD, chf, epilepsy, htn, [place], multiple sclerosis, seizures, thyroid disease, colectomy. ablation ; Mid-back pain, T-spine fracture, pathological Pt BIBEMS from a local motel with c/o back pain and chest pain that has been increasing the past few days. Pt is c/o lower back pain with radiation to bilat LE as well upper back pain with radiation to upper chest. Pt states increased pain with coughing/movement. Pt states hx of COPD, CHF and asthma. 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 Pt denies fever, chills or body aches. Pt also reports colostomy place to [facility] x2 months ago. Pt states HH RN visits due to colostomy. Pt a/o x4. NAD. VSS. Pt states normally ambulatory with walker Hx: asthma, COPD, chf, epilepsy, htn, [place], multiple sclerosis, seizures, thyroid disease, colectomy. ablation TECHNIQUE: CT angiogram of the chest with routine abdomen and pelvis performed with intravenous and without oral contrast using helical scanning technique with dynamic intravenous contrast injection. Reconstructed coronal and sagittal MPR images reviewed. All images stored on PACS. 3D MIP images of the chest rendered on scanning unit and reviewed at time of interpretation. Automated exposure control was used as a dose optimization technique for this examination. CONTRAST TYPE/DOSE: 92mL of IOVERSOL 350 MG IODINE/ML INTRAVENOUS SYRINGE injected via intravenous COMPARISON: 09/04/2024 FINDINGS: CHEST CHEST VASCULATURE: No acute pulmonary thromboembolism. LUNGS: No nodules or masses. No pneumonia. PLEURA: No effusion. No pneumothorax. MEDIASTINUM/MARIA INES: No identified masses or abnormal nodes. There is a calcified left hilar lymph node. HEART: Heart size is normal with no pericardial effusion. AXILLA: No adenopathy. CHEST WALL: No masses. No subcutaneous air. HARDWARE/LINES/TUBES: None. MUSCULOSKELETAL CHEST: No significant abnormality. ABDOMEN/PELVIS LIVER: Normal size. No identified cystic or solid masses. GALLBLADDER: No stones identified. No wall thickening or inflammatory changes. BILE DUCTS: No intrahepatic or extrahepatic ductal dilatation. SPLEEN: Normal size. No focal lesions. PANCREAS: No identified cystic or solid masses. No significant calcifications. No adjacent inflammation or peripancreatic fluid collections. Pancreatic duct not dilated. ADRENALS: Normal. KIDNEYS/URINARY TRACT: No identified significant cystic or solid masses. No visualized stones. No hydronephrosis or hydroureter. Symmetric enhancement. Urinary bladder is unremarkable. GI: Left lower quadrant ostomy is present. No dilated bowel loops. No obvious wall thickening. Normal appendix. No significant diverticular disease. PERITONEUM: No ascites or free air. RETROPERITONEUM: No mass or adenopathy. REPRODUCTIVE: No significant abnormality. VASCULATURE ABDOMEN: No abdominal aortic aneurysm. MUSCULOSKELETAL ABDOMEN PELVIS: Multilevel degenerative changes are present without fracture. No concerning lesions are present. OTHER: No significant abnormality. IMPRESSION: No evidence of pulmonary embolism. No evidence of acute disease in the chest. No evidence of acute disease in the abdomen or pelvis. Left lower quadrant ostomy. THIS IS AN ELECTRONICALLY VERIFIED FINAL REPORT 10/06/2024 7:08 PM - Electronically signed by Rhoda Austin M.D. AB T: Report ID: [id number] Reading Location: [place] [id number] Procedure Note Rhoda Austin MD - 10/06/2024 EXAM DESCRIPTION: CT CHEST PE (CTA) W CONTRAST; CT ABDOMEN PELVIS WCONTRAST; CT RECON THORACIC AND LUMBAR SPINE W CONTRAST (C) REASON FOR STUDY: Pulmonary embolism (PE) suspected, high prob Pt BIBEMS from a local motel with c/o back pain and chest pain that hasbeen increasing the past few days. Pt is c/o lower back pain withradiation to bilat LE as well upper back pain with radiation to upper chest. Ptstates increased pain with coughing/movement. Pt states hx of COPD, CHF and asthma. 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 Pt denies fever, chills or body aches. Pt also reports colostomy placeto [facility]Q x2 months ago. Pt states HH RN visits due to colostomy. 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 NAD. VSS. Pt states normally ambulatory with walker Hx: asthma,COPD, chf, epilepsy, htn, [place], multiple sclerosis, seizures, thyroid disease, colectomy. ablation ; Abdominal pain, acute, nonlocalized Pt BIBEMS from a local motel with c/o back pain and chest pain that hasbeen increasing the past few days. Pt is c/o lower back pain withradiation to bilat LE as well upper back pain with radiation to upper chest. Ptstates increased pain with coughing/movement. Pt states hx of COPD, CHF and asthma. 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 Pt denies fever, chills or body aches. Pt also reports colostomy placeto [facility]Q x2 months ago. Pt states HH RN visits due to colostomy. 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 NAD. VSS. Pt states normally ambulatory with walker Hx: asthma,COPD, chf, epilepsy, htn, [place], multiple sclerosis, seizures, thyroid disease, colectomy. ablation ; Mid-back pain, T-spine fracture,pathological Pt BIBEMS from a local motel with c/o back pain and chest pain that hasbeen increasing the past few days. Pt is c/o lower back pain withradiation to bilat LE as well upper back pain with radiation to upper chest. Ptstates increased pain with coughing/movement. Pt states hx of COPD, CHF and asthma. 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 Pt denies fever, chills or body aches. Pt also reports colostomy placeto [facility]Q x2 months ago. Pt states HH RN visits due to colostomy. 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 NAD. VSS. Pt states normally ambulatory with walker Hx: asthma,COPD, chf, epilepsy, htn, [place], multiple sclerosis, seizures, thyroid disease, colectomy. ablation TECHNIQUE: CT angiogram of the chest with routine abdomen and pelvisperformed with intravenous and without oral contrast using helical scanningtechnique with dynamic intravenous contrast injection. Reconstructed coronal and sagittal MPR images reviewed. All images stored on PACS. 3D MIP images ofthe chest rendered on scanning unit and reviewed at time of interpretation. Automated exposure control was used as a dose optimization technique forthis examination. CONTRAST TYPE/DOSE: 92mL of IOVERSOL 350 MG IODINE/ML INTRAVENOUS SYRINGE injected via intravenous COMPARISON: 09/04/2024 FINDINGS: CHEST CHEST VASCULATURE: No acute pulmonary thromboembolism. LUNGS: No nodules or masses. No pneumonia. PLEURA: No effusion. No pneumothorax. MEDIASTINUM/MARIA INES: No identified masses or abnormal nodes. There is a calcified left hilar lymph node. HEART: Heart size is normal with no pericardial effusion. AXILLA: No adenopathy. CHEST WALL: No masses. No subcutaneous air. HARDWARE/LINES/TUBES: None. MUSCULOSKELETAL CHEST: No significant abnormality. ABDOMEN/PELVIS LIVER: Normal size. No identified cystic or solid masses. GALLBLADDER: No stones identified. No wall thickening or inflammatory changes. BILE DUCTS: No intrahepatic or extrahepatic ductal dilatation. SPLEEN: Normal size. No focal lesions. PANCREAS: No identified cystic or solid masses. No significant calcifications. No adjacent inflammation or peripancreatic fluidcollections. Pancreatic duct not dilated. ADRENALS: Normal. KIDNEYS/URINARY TRACT: No identified significant cystic or solid masses.No visualized stones. No hydronephrosis or hydroureter. Symmetricenhancement. Urinary bladder is unremarkable. GI: Left lower quadrant ostomy is present. No dilated bowel loops. No obvious wall thickening. Normal appendix. No significant diverticular disease. PERITONEUM: No ascites or free air. RETROPERITONEUM: No mass or adenopathy. REPRODUCTIVE: No significant abnormality. VASCULATURE ABDOMEN: No abdominal aortic aneurysm. MUSCULOSKELETAL ABDOMEN PELVIS: Multilevel degenerative changes arepresent without fracture. No concerning lesions are present. OTHER: No significant abnormality. IMPRESSION: No evidence of pulmonary embolism. No evidence of acutedisease in the chest. No evidence of acute disease in the abdomen or pelvis. Left lower quadrant ostomy. THIS IS AN ELECTRONICALLY VERIFIED FINAL REPORT 10/06/2024 7:08 PM - Electronically signed by Rhoda Austin M.D. AB T: Report ID: [id number] Reading Location: [id number] Ja Mcgill DO [facility] [place] PROCEDURES Edited Re sult - Final * CT Abdomen Pelvis W Contrast (10/06/2024 6:23 PM CDT) Anatomical Region Laterality Modality Body N/A Computed Tomogra phy 10/06/2024 6:56 PM CDT Addenda Addendum by Rhoda Austin MD on 11/22/2024 12:18 PM CDT ADDENDUM: This addendum report supersedes the original report dated END OF ADDENDUM REPORT THIS IS AN ELECTRONICALLY VERIFIED FINAL REPORT 11/22/2024 12:18 PM Addendum Electronically signed by Rhoda Austin M.D. AB T: Report ID: [id number] Reading Location: [id number] Narrative 10/06/2024 7:08 PM CDT EXAM DESCRIPTION: CT CHEST PE (CTA) W CONTRAST; CT ABDOMEN PELVIS W CONTRAST; CT RECON THORACIC AND LUMBAR SPINE W CONTRAST (C) REASON FOR STUDY: Pulmonary embolism (PE) suspected, high prob Pt BIBEMS from a local motel with c/o back pain and chest pain that has been increasing the past few days. Pt is c/o lower back pain with radiation to bilat LE as well upper back pain with radiation to upper chest. Pt states increased pain with coughing/movement. Pt states hx of COPD, CHF and asthma. 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 Pt denies fever, chills or body aches. Pt also reports colostomy place to [facility] x2 months ago. Pt states HH RN visits due to colostomy. Pt a/o x4. NAD. VSS. Pt states normally ambulatory with walker Hx: asthma, COPD, chf, epilepsy, htn, [place], multiple sclerosis, seizures, thyroid disease, colectomy. ablation ; Abdominal pain, acute, nonlocalized Pt BIBEMS from a local motel with c/o back pain and chest pain that has been increasing the past few days. Pt is c/o lower back pain with radiation to bilat LE as well upper back pain with radiation to upper chest. Pt states increased pain with coughing/movement. Pt states hx of COPD, CHF and asthma. 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 Pt denies fever, chills or body aches. Pt also reports colostomy place to [facility] x2 months ago. Pt states HH RN visits due to colostomy. Pt a/o x4. NAD. VSS. Pt states normally ambulatory with walker Hx: asthma, COPD, chf, epilepsy, htn, [place], multiple sclerosis, seizures, thyroid disease, colectomy. ablation ; Mid-back pain, T-spine fracture, pathological Pt BIBEMS from a local motel with c/o back pain and chest pain that has been increasing the past few days. Pt is c/o lower back pain with radiation to bilat LE as well upper back pain with radiation to upper chest. Pt states increased pain with coughing/movement. Pt states hx of COPD, CHF and asthma. 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 Pt denies fever, chills or body aches. Pt also reports colostomy place to [facility] x2 months ago. Pt states HH RN visits due to colostomy. Pt a/o x4. NAD. VSS. Pt states normally ambulatory with walker Hx: asthma, COPD, chf, epilepsy, htn, [place], multiple sclerosis, seizures, thyroid disease, colectomy. ablation TECHNIQUE: CT angiogram of the chest with routine abdomen and pelvis performed with intravenous and without oral contrast using helical scanning technique with dynamic intravenous contrast injection. Reconstructed coronal and sagittal MPR images reviewed. All images stored on PACS. 3D MIP images of the chest rendered on scanning unit and reviewed at time of interpretation. Automated exposure control was used as a dose optimization technique for this examination. CONTRAST TYPE/DOSE: 92mL of IOVERSOL 350 MG IODINE/ML INTRAVENOUS SYRINGE injected via intravenous COMPARISON: 09/04/2024 FINDINGS: CHEST CHEST VASCULATURE: No acute pulmonary thromboembolism. LUNGS: No nodules or masses. No pneumonia. PLEURA: No effusion. No pneumothorax. MEDIASTINUM/MARIA INES: No identified masses or abnormal nodes. There is a calcified left hilar lymph node. HEART: Heart size is normal with no pericardial effusion. AXILLA: No adenopathy. CHEST WALL: No masses. No subcutaneous air. HARDWARE/LINES/TUBES: None. MUSCULOSKELETAL CHEST: No significant abnormality. ABDOMEN/PELVIS LIVER: Normal size. No identified cystic or solid masses. GALLBLADDER: No stones identified. No wall thickening or inflammatory changes. BILE DUCTS: No intrahepatic or extrahepatic ductal dilatation. SPLEEN: Normal size. No focal lesions. PANCREAS: No identified cystic or solid masses. No significant calcifications. No adjacent inflammation or peripancreatic fluid collections. Pancreatic duct not dilated. ADRENALS: Normal. KIDNEYS/URINARY TRACT: No identified significant cystic or solid masses. No visualized stones. No hydronephrosis or hydroureter. Symmetric enhancement. Urinary bladder is unremarkable. GI: Left lower quadrant ostomy is present. No dilated bowel loops. No obvious wall thickening. Normal appendix. No significant diverticular disease. PERITONEUM: No ascites or free air. RETROPERITONEUM: No mass or adenopathy. REPRODUCTIVE: No significant abnormality. VASCULATURE ABDOMEN: No abdominal aortic aneurysm. MUSCULOSKELETAL ABDOMEN PELVIS: Multilevel degenerative changes are present without fracture. No concerning lesions are present. OTHER: No significant abnormality. IMPRESSION: No evidence of pulmonary embolism. No evidence of acute disease in the chest. No evidence of acute disease in the abdomen or pelvis. Left lower quadrant ostomy. THIS IS AN ELECTRONICALLY VERIFIED FINAL REPORT 10/06/2024 7:08 PM - Electronically signed by Rhoda CHAVIS T: Report ID: [id number] Reading Location: [place] [id number] Procedure Note Rhoda Austin MD - 10/06/2024 EXAM DESCRIPTION: CT CHEST PE (CTA) W CONTRAST; CT ABDOMEN PELVIS WCONTRAST; CT RECON THORACIC AND LUMBAR SPINE W CONTRAST (C) REASON FOR STUDY: Pulmonary embolism (PE) suspected, high prob Pt BIBEMS from a local motel with c/o back pain and chest pain that hasbeen increasing the past few days. Pt is c/o lower back pain withradiation to bilat LE as well upper back pain with radiation to upper chest. Ptstates increased pain with coughing/movement. Pt states hx of COPD, CHF and asthma. 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 Pt denies fever, chills or body aches. Pt also reports colostomy placeto LLQ x2 months ago. Pt states HH RN visits due to colostomy. 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 NAD. VSS. Pt states normally ambulatory with walker Hx: asthma,COPD, chf, epilepsy, htn, [place], multiple sclerosis, seizures, thyroid disease, colectomy. ablation ; Abdominal pain, acute, nonlocalized Pt BIBEMS from a local motel with c/o back pain and chest pain that hasbeen increasing the past few days. Pt is c/o lower back pain withradiation to bilat LE as well upper back pain with radiation to upper chest. Ptstates increased pain with coughing/movement. Pt states hx of COPD, CHF and asthma. 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 Pt denies fever, chills or body aches. Pt also reports colostomy placeto [facility]Q x2 months ago. Pt states HH RN visits due to colostomy. 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 NAD. VSS. Pt states normally ambulatory with walker Hx: asthma,COPD, chf, epilepsy, htn, [place], multiple sclerosis, seizures, thyroid disease, colectomy. ablation ; Mid-back pain, T-spine fracture,pathological Pt BIBEMS from a local motel with c/o back pain and chest pain that hasbeen increasing the past few days. Pt is c/o lower back pain withradiation to bilat LE as well upper back pain with radiation to upper chest. Ptstates increased pain with coughing/movement. Pt states hx of COPD, CHF and asthma. 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 Pt denies fever, chills or body aches. Pt also reports colostomy placeto LLQ x2 months ago. Pt states HH RN visits due to colostomy. 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 NAD. VSS. Pt states normally ambulatory with walker Hx: asthma,COPD, chf, epilepsy, htn, [place], multiple sclerosis, seizures, thyroid disease, colectomy. ablation TECHNIQUE: CT angiogram of the chest with routine abdomen and pelvisperformed with intravenous and without oral contrast using helical scanningtechnique with dynamic intravenous contrast injection. Reconstructed coronal and sagittal MPR images reviewed. All images stored on PACS. 3D MIP images ofthe chest rendered on scanning unit and reviewed at time of interpretation. Automated exposure control was used as a dose optimization technique forthis examination. CONTRAST TYPE/DOSE: 92mL of IOVERSOL 350 MG IODINE/ML INTRAVENOUS SYRINGE injected via intravenous COMPARISON: 09/04/2024 FINDINGS: CHEST CHEST VASCULATURE: No acute pulmonary thromboembolism. LUNGS: No nodules or masses. No pneumonia. PLEURA: No effusion. No pneumothorax. MEDIASTINUM/MARIA INES: No identified masses or abnormal nodes. There is a calcified left hilar lymph node. HEART: Heart size is normal with no pericardial effusion. AXILLA: No adenopathy. CHEST WALL: No masses. No subcutaneous air. HARDWARE/LINES/TUBES: None. MUSCULOSKELETAL CHEST: No significant abnormality. ABDOMEN/PELVIS LIVER: Normal size. No identified cystic or solid masses. GALLBLADDER: No stones identified. No wall thickening or inflammatory changes. BILE DUCTS: No intrahepatic or extrahepatic ductal dilatation. SPLEEN: Normal size. No focal lesions. PANCREAS: No identified cystic or solid masses. No significant calcifications. No adjacent inflammation or peripancreatic fluidcollections. Pancreatic duct not dilated. ADRENALS: Normal. KIDNEYS/URINARY TRACT: No identified significant cystic or solid masses.No visualized stones. No hydronephrosis or hydroureter. Symmetricenhancement. Urinary bladder is unremarkable. GI: Left lower quadrant ostomy is present. No dilated bowel loops. No obvious wall thickening. Normal appendix. No significant diverticular disease. PERITONEUM: No ascites or free air. RETROPERITONEUM: No mass or adenopathy. REPRODUCTIVE: No significant abnormality. VASCULATURE ABDOMEN: No abdominal aortic aneurysm. MUSCULOSKELETAL ABDOMEN PELVIS: Multilevel degenerative changes arepresent without fracture. No concerning lesions are present. OTHER: No significant abnormality. IMPRESSION: No evidence of pulmonary embolism. No evidence of acutedisease in the chest. No evidence of acute disease in the abdomen or pelvis. Left lower quadrant ostomy. THIS IS AN ELECTRONICALLY VERIFIED FINAL REPORT 10/06/2024 7:08 PM - Electronically signed by Rhoda CHAVIS T: Report ID: [id number] Reading Location: [place] [address] Ja Mcgill DO IMG CT PROCEDURES Edited Re sult - Final * CT Head WO Contrast (10/06/2024 6:23 PM CDT) Anatomical Region Laterality Modality Head and Neck N/A Computed Tomogra phy 10/06/2024 7:08 PM CDT Narrative 10/06/2024 7:09 PM CDT EXAM DESCRIPTION: CT HEAD WO CONTRAST REASON FOR STUDY: Headache, increasing frequency or severity Pt BIBEMS from a local motel with c/o back pain and chest pain that has been increasing the past few days. Pt is c/o lower back pain with radiation to bilat LE as well upper back pain with radiation to upper chest. Pt states increased pain with coughing/movement. Pt states hx of COPD, CHF and asthma. 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 Pt denies fever, chills or body aches. Pt also reports colostomy place to LLQ x2 months ago. Pt states HH RN visits due to colostomy. Pt a/o x4. NAD. VSS. Pt states normally ambulatory with walker Hx: asthma, COPD, chf, epilepsy, htn, [place], multiple sclerosis, seizures, thyroid disease, colectomy. ablation TECHNIQUE: Axial images acquired through the brain without intravenous contrast. Images stored on PACS. Automated exposure control was used as a dose optimization technique for this examination. COMPARISON: 07/26/2024 FINDINGS: BRAIN: No hemorrhage, edema or mass effect. No recent infarct. Normal white matter. EXTRA-AXIAL SPACES: No fluid collections. No masses. CALVARIUM: No fracture. SINUSES/MASTOIDS: No fluid or mucosal thickening. ORBITS: No significant abnormality. OTHER: No other significant abnormality. IMPRESSION: No acute intracranial findings. THIS IS AN ELECTRONICALLY VERIFIED FINAL REPORT 10/06/2024 7:09 PM - Electronically signed by Ja Antonio M.D. KT T: Report ID: [id number] Reading Location: [id number] Procedure Note Ja Antonio MD - 10/06/2024 EXAM DESCRIPTION: CT HEAD WO CONTRAST REASON FOR STUDY: Headache, increasing frequency or severity Pt BIBEMS from a local motel with c/o back pain and chest pain that hasbeen increasing the past few days. Pt is c/o lower back pain withradiation to bilat LE as well upper back pain with radiation to upper chest. Ptstates increased pain with coughing/movement. Pt states hx of COPD, CHF and asthma. 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 Pt denies fever, chills or body aches. Pt also reports colostomy placeto LLQ x2 months ago. Pt states HH RN visits due to colostomy. 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 NAD. VSS. Pt states normally ambulatory with walker Hx: asthma,COPD, chf, epilepsy, htn, [place], multiple sclerosis, seizures, thyroid disease, colectomy. ablation TECHNIQUE: Axial images acquired through the brain without intravenous contrast. Images stored on PACS. Automated exposure control was used asa dose optimization technique for this examination. COMPARISON: 07/26/2024 FINDINGS: BRAIN: No hemorrhage, edema or mass effect. No recent infarct. Normal white matter. EXTRA-AXIAL SPACES: No fluid collections. No masses. CALVARIUM: No fracture. SINUSES/MASTOIDS: No fluid or mucosal thickening. ORBITS: No significant abnormality. OTHER: No other significant abnormality. IMPRESSION: No acute intracranial findings. THIS IS AN ELECTRONICALLY VERIFIED FINAL REPORT 10/06/2024 7:09 PM - Electronically signed by Ja Antonio M.D. KT T: Report ID: [id number] Reading Location: [place] [address] Ja Mcgill DO IMG CT PROCEDURES Final Res ult * (ABNORMAL) Troponin T high-sensitivity 2-hour (10/06/2024 5:31 PM CDT) Trop T hs 38(H) <=14 ng/L Comment: Interpretive Data For further hscTnT resources including the diagnostic algorithm and an aid in interpretation, copy and paste this link: https://nrl.testcatalog.org/show/[email or web address] Current Interpretive Data last revised 2020. Trop T hs delta 5 ng/L [facility] Trop T hs interp Equivocal [facility] Blood 10/06/2024 5:31 PM CDT 10/06/2024 5:35 PM CDT Ja Mcgill DO LAB BLOOD ORDERABLES Final Result [facility] [address] [facility] [place] [address] * (ABNORMAL) Pro B-type natriuretic peptide (10/06/2024 5:31 PM CDT) NT-proBNP 346(H) <=300 pg/mL Comment: Interpretive Comments: A. Dyspnea in Acute Care Setting All Ages: < 300 pg/ml, acute heart failure unlikely. < 50 yrs: 300 - 450 pg/ml, further investigation warranted. > 450 pg/ml, acute heart failure likely. 50 - 74 yrs: 300 - 900 pg/ml, further investigation warranted. > 900 pg/ml, acute heart failure likely . > or = 75 yrs: 450 - 1800 pg/ml, further investigation warranted. > 1800 pg/ml, acute heart failure likely. B. Non-acute Setting < 75 yrs < 125 pg/ml, rules out heart failure. > or = 125 pg/ml, further investigation warranted. > or = 75 yrs < 450 pg/ml, rules out heart failure. > or = 450 pg/ml, further investigation warranted. - Knowledge of each individual patient's NT-proBNP range may be more useful than using similar cut-points for every patient. Please note that marked elevations in NT-proBNP levels may be observed in state other than Left Ventricular Congestive Failure, including: acute coronary syndromes, right heart strain/failure (including pulmonary embolism and cor pulmonale), critical illness, renal failure, as well as advanced age. - References: 1. Dat CARRERA et.al. Eur Heart J. 2006:27:330-337. 2. Cj RW, Cyndi AM. J. AM Aruna Cardiol: Cardiovasc Imag. 2009;2: 216- 225. Interpretive Data Last Revised Date: 2017. Blood 10/06/2024 5:31 PM CDT 10/06/2024 5:35 PM CDT Ja Mcgill DO LAB BLOOD ORDERABLES Final Result [facility] [address] [facility] [place] [address] * XR Chest 1 Vw Portable (If patient hemodynamically UNstable or UNable to ambulate) (10/06/2024 3:43PM CDT) Anatomical Region Laterality Modality Body, Chest N/A Computed Radiogr aphy 10/06/2024 4:02 PM CDT Narrative 10/06/2024 4:08 PM CDT EXAM DESCRIPTION: XR CHEST 1 VIEW REASON FOR STUDY: chest pain c/o back pain and chest pain that has been increasing the past few days. Pt is c/o lower back pain with radiation to bilat LE as well upper back pain with radiation to upper chest. Pt states increased pain with coughing/movement. Pt states hx of COPD, CHF and asthma TECHNIQUE: 1 radiographic view(s) of the chest. COMPARISON: 09/08/2024 FINDINGS: LUNGS: No focal opacity, pleural effusion, or pneumothorax. There is right basilar atelectasis and flattening of the hemidiaphragms, unchanged. HEART/MEDIASTINUM: Cardiac silhouette normal in size. Mediastinal and hilar contours appear normal. LINES/TUBES: None. BONES: No acute osseous abnormality. IMPRESSION: No acute cardiopulmonary abnormality. THIS IS AN ELECTRONICALLY VERIFIED FINAL REPORT 10/06/2024 4:08 PM - Electronically signed by Rhoda Austin M.D. AB T: Report ID: [id number] Reading Location: [place] [address] Procedure Note Rhoda Austin MD - 10/06/2024 EXAM DESCRIPTION: XR CHEST 1 VIEW REASON FOR STUDY: chest pain c/o back pain and chest pain that has been increasing the past few days. Pt is c/o lower back pain with radiation to bilat LE as well upper backpain with radiation to upper chest. Pt states increased pain with coughing/movement. Pt states hx of COPD, CHF and asthma TECHNIQUE: 1 radiographic view(s) of the chest. COMPARISON: 09/08/2024 FINDINGS: LUNGS: No focal opacity, pleural effusion, or pneumothorax.There is right basilar atelectasis and flattening of the hemidiaphragms,unchanged. HEART/MEDIASTINUM: Cardiac silhouette normal in size. Mediastinal andhilar contours appear normal. LINES/TUBES: None. BONES: No acute osseous abnormality. IMPRESSION: No acute cardiopulmonary abnormality. THIS IS AN ELECTRONICALLY VERIFIED FINAL REPORT 10/06/2024 4:08 PM - Electronically signed by Rhoda Austin M.D. AB T: Report ID: [id number] Reading Location: [place] [address] Ja Arora Mcgill DO IMG XR PROCEDURES Final Res ult * ECG 12 lead (10/06/2024 3:35 PM CDT) Ventricular Rate EKG/Min 101 BPM [facility] Atrial Rate 101 BPM [facility] [place]-Interval (MSEC) 144 ms [facility] QRS-Interval (MSEC) 92 ms [facility] QT-Interval (MSEC) 382 ms [facility] QTc 495 ms [facility] P [place] 47 degrees [facility] R [place] 48 degrees [facility] T [place] 59 degrees [facility] Diagnosis Sinus tachycardia Otherwise normal ECG When compared with ECG of 05-SEP-2024 05:33, No significant change was found Confirmed by SANDRA BRAY M.D. ([id number]) on 10/06/2024 5:00:21 PM [facility] 10/06/2024 3:35 PM CDT 10/06/2024 5:00 PM CDT Ja Ulysses Mcgill DO ECG ORDERABLES Final Resul t [facility] * (ABNORMAL) Troponin T high-sensitivity series (baseline, 2hr, 4hr, 6hr) (10/06/2024 3:33 PM CDT) Pathologist [facility] Trop T hs 33(H) <=14 ng/L Comment: Interpretive Data For further hscTnT resources including the diagnostic algorithm and an aid in interpretation, copy and paste this link: https://nrl.testcatalog.org/show/[email or web address] Current Interpretive Data last revised 2020. Blood 10/06/2024 3:33 PM CDT 10/06/2024 3:35 PM CDT Ja Ulysses Mcgill DO LAB BLOOD ORDERABLES Final Result [facility] [address] [facility] [place] [address] * eGFR (10/06/2024 3:33 PM CDT) [facility] eGFR >90 >=60 mL/min/1. 73 m2 Comment: Interpretive Data Reference Interval Normal >/= 90 mL/min/1.73m2 Mildly decreased* 60 - 89 mL/min/1.73m2 Mildly to moderately decreased 45 - 59 mL/min/1.73m2 Moderately to severely decreased 30 - 44 mL/min/1.73m2 Severely decreased 15 - 29 mL/min/1.73m2 Kidney Failure < 15 mL/min/1.73m2 *Relative to young adult level Estimated glomerular filtration rate is determined by the 2020 CKD-EPI equation recommended by the National Kidney [employer] (A Unifying Approach to GFR Estimation: Recommendations of the NKF-ASK Task Force on Reassessing the Inclusion of Race in Diagnosing Kidney Disease, JASN 2020). The CKD-EPI equation should not be used for patients with unstable renal function and has not been validated in children and those over 70. Current interpretive data was last reviewed 2021. Blood 10/06/2024 3:33 PM CDT 10/06/2024 3:35 PM CDT Ja Mcgill DO LAB BLOOD ORDERABLES Final [facility] [address] [facility] [place] [address] * (ABNORMAL) Differential, auto (10/06/2024 3:33 PM CDT) [facility] Neutrophil abs 3.13 1.50 - 6.50 K/cumm Imm gran abs 0.01 0.00 - 0.10 K/cumm [facility] Lymphocyte abs 3.57(H) 0.80 - 3.30 K/cumm [facility] Monocyte abs 0.67 0.20 - 0.80 K/cumm [facility] Eosinophil abs 0.12 0.00 - 0.50 K/cumm [facility] Basophil abs 0.02 0.00 - 0.10 K/cumm [facility] Neutrophil pct 41.6 % [facility] Comment: Interpretive Data Percent cell count reference ranges are not reported, since discordance with absolute values may lead to misinterpretation of CBC data. Current Interpretive Data was last revised on 2017. Imm gran pct 0.1 % [facility] Comment: Interpretive Data Percent cell count reference ranges are not reported, since discordance with absolute values may lead to misinterpretation of CBC data. Current Interpretive Data was last revised on 2017. Lymphocyte pct 47.5 % [facility] Comment: Interpretive Data Percent cell count reference ranges are not reported, since discordance with absolute values may lead to misinterpretation of CBC data. Current Interpretive Data was last revised on 2017. Monocyte pct 8.9 % [facility] Comment: Interpretive Data Percent cell count reference ranges are not reported, since discordance with absolute values may lead to misinterpretation of CBC data. Current Interpretive Data was last revised on 2017. Eosinophil pct 1.6 % [facility] Comment: Interpretive Data Percent cell count reference ranges are not reported, since discordance with absolute values may lead to misinterpretation of CBC data. Current Interpretive Data was last revised on 2017. Basophil pct 0.3 % [facility] Comment: Interpretive Data Percent cell count reference ranges are not reported, since discordance with absolute values may lead to misinterpretation of CBC data. Current Interpretive Data was last revised on 2017. Blood 10/06/2024 3:33 PM CDT 10/06/2024 3:35 PM CDT Ja Mcgill DO LAB BLOOD ORDERABLES Final Result [facility] [address] [facility] [place] [address] * (ABNORMAL) CBC with auto differential (10/06/2024 3:33 PM CDT) WBC 7.52 3.80 - 9.90 K/cumm Hgb 9.0(L) 11.9 - 15.5 g/dL [facility] Hct 29.5(L) 35.6 - 45.5 % [facility] Plt 326 150 - 400 K/cumm [facility] MPV 9.0(L) 9.1 - 12.3 fL [facility] RBC 3.21(L) 3.90 - 5.20 M/cumm [facility] MCV 91.9 81.3 - 96.4 fL [facility] MCH 28.0 27.1 - 33.3 pg [facility] MCHC 30.5(L) 32.3 - 35.7 g/dL [facility] RDW CV 16.6(H) 11.1 - 14.9 % [facility] RDW SD 55.9(H) 35.7 - 48.1 fL [facility] NRBC abs 0.00 0.00 - 0.01 K/cumm [facility] Blood Venous blood specimen / Unknown 10/06/2024 3:33 PM CDT 10/06/2024 3:35 PM CDT Ja Mcgill DO LAB BLOOD ORDERABLES Final Result [facility] [address] [facility] [place] [address] * (ABNORMAL) Comprehensive metabolic panel (10/06/2024 3:33 PM CDT) Sodium 138 135 - 145 mmol/L Potassium, pl 3.5 3.3 - 4.9 mmol/L [facility] Chloride 100 97 - 110 mmol/L [facility] CO2 27 22 - 32 mmol/L [facility] Anion gap 11 2 - 15 mmol/L [facility] BUN 6 6 - 25 mg/dL [facility] Creatinine 0.61 0.60 - 1.10 mg/dL [facility] Glucose 107 70 - 199 mg/dL [facility] Comment: Interpretive Data Fasting glucose >/= 126 mg/dl is diagnostic for diabetes. Fasting is defined as no caloric intake for at least 8 hours. Fasting glucose between 100 mg/dl to 125 mg/dl is diagnostic of prediabetes. In a patient with classic symptoms of hyperglycemia or hyperglycemic crisis, a random glucose >/= 200 mg/dl is diagnostic for diabetes. In the absence of unequivocal hyperglycemia, results should be confirmed by repeat testing. The classification and Diagnosis of Diabetes Diabetes Care 202; 46: S19-S40. Current interpretive data was last revised 2022. Calcium 8.4(L) 8.5 - 10.3 mg/dL [facility] Bilirubin, total 0.5 0.1 - 1.2 mg/dL [facility] Protein, pl 6.1(L) 6.5 - 8.5 g/dL [facility] Albumin 3.1(L) 3.5 - 5.0 g/dL [facility] Alk phos 75 40 - 130 Units/L [facility] ALT 8 7 - 45 Units/L [facility] AST 13 10 - 45 Units/L [facility] Blood 10/06/2024 3:33 PM CDT 10/06/2024 3:35 PM CDT Ja Mcgill LAB BLOOD ORDERABLES Final Result [facility] [address] [facility] [place] [address] * Colonoscopy (06/13/2024 8:23 AM CDT) Anatomical Region Laterality Modality Other Narrative Procedure Note Nanda Serrano MD - 06/13/2024 8:23 AM CDT [facility] Patient Name: Radha Easton Procedure Date: 06/13/2024 8:23 AM Date of : 1970 Admit Type: Inpatient Age: 54 Gender: Female Note Status: Finalized Attending MD: Nanda Serrano M.D. Procedure Date: 06/13/2024 Procedure: Colonoscopy Indications: Hematochezia Providers: Nanda Serrano M.D., Faisal Faith RN, Therese, Auto Heater Mechanic Referring MD: Cl Trivedi M.D. Medicines: Monitored Anesthesia Care Complications: No immediate complications. Estimated Blood Loss: Estimated blood loss: none. Procedure: Pre-Anesthesia Assessment: - Prior to the procedure, a History and Physicalwas performed, and patient medications and allergieswere reviewed. The patient's tolerance of previous anesthesia was also reviewed. The risks andbenefits of the procedure and the sedation options and risks were discussed with the patient. All questions were answered, and informed consent was obtained. Prior Anticoagulants: The patient has taken noanticoagulant or antiplatelet agents. ASA Grade Assessment: III -A patient with severe systemic disease. Afterreviewing the risks and benefits, the patient was deemed in satisfactory condition to undergo the procedure. - Prior to the procedure, a History and Physicalwas performed, and patient medications, allergies and sensitivities were reviewed. The patient'stolerance of previous anesthesia was reviewed. - The risks and benefits of the procedure and the sedation options and risks were discussed with the patient. All questions were answered and informed consent was obtained. After I obtained informed consent, the scope was passed under direct vision. Throughout theprocedure, the patient's blood pressure, pulse, and oxygen saturations were monitored continuously. The scopewas passed under direct vision. The Colonoscope was introduced through the anus and advanced to the the terminal ileum. The colonoscopy was performedwithout difficulty. The patient tolerated the procedurewell. The quality of the bowel preparation was evaluated using the BBPS (Moira Bowel Preparation Scale)with scores of: Right Colon = 3, Transverse Colon = 3and Left Colon = 3 (entire mucosa seen well with no residual staining, small fragments of stool oropaque liquid). The total BBPS score equals 9. Theterminal ileum, ileocecal valve, appendiceal orifice, and rectum were photographed. The quality of the bowel preparation was excellent. The bowel preparationused was Plenvu via split dose instruction. Findings: The terminal ileum appeared normal. Retroflexion in the right colon was performed. Three hyperplastic and sessile polyps were found in the recto-sigmoid colon and cecum. The polyps were 1 to 2 mm in size. Polypectomy wasnot attempted due to procedure being done for bleeding treatment. Scattered small-mouthed diverticula were found in the entire colon. Non-bleeding external and internal hemorrhoids were found during retroflexion and during perianal exam. The hemorrhoids weremoderate. The digital rectal exam was normal. Impression: - The examined portion of the ileum was normal. - Three 1 to 2 mm polyps at the recto-sigmoid colon and in the cecum. Resection not attempted. - Diverticulosis in the entire examined colon. - Non-bleeding external and internal hemorrhoids. - No specimens collected. Recommendation: - [facility] - Advance diet as tolerated. - Continue present medications. - Repeat colonoscopy when bleeding issue resolvedfor polypectomy. - Anemia follow-up with PCP is recommended. Ifanemia fails to normalize, please notify us. - She is recommended to follow-up outpatient withGI - GI will see as needed. Please reconsult for inpatient GI needs. - For your Hemorrhoids, I recommend thefollowing: What are hemorrhoids? Hemorrhoids are enlargedveins in the anus and rectal area. What are symptoms I can experience fromhemorrhoids? Hemorrhoid symptoms include rectal bleeding,itching, swelling, pain and a sensation of somethingabnormal in the area. Are hemorrhoids a serious problem? Hemorrhoids are rarely a serious problem. How can I improve my hemorrhoids and symptoms? 1. Have soft bowel movements - make sure you treatany underlying constipation problem. Eating a diet highin fiber (about 30 grams of fiber a day) and staying hydrated can help with this. 2. Avoid straining on the toilet 3. Avoid prolonged sitting on the toilet 4. Clean the anal area by wiping/blotting gently - avoid aggresive wiping. 5. Wear cotton underwear. 6. Avoid tight clothing. 7. Try a sitz bath - Sit in a few inches of warmwater 3 times a day and after bowel movements 8. Try Tucks / Witch Tanja pads. 9. Try a phenylephrine ointment or suppository(sample brand names Preparation H, Rectacaine). This will shrink swollen hemorrhoids and relieve itching and discomfort for a few hours. 10. Try hydrocortisone rectal cream or suppository (sample brand name: Preparation H Hydrocortisone). Reduces swelling, and pain caused by hemorrhoids.Do not use this for longer than a week. Procedure Code(s): --- Professional --- 86130, Colonoscopy, flexible; diagnostic, including collection of specimen(s) by brushing or washing,when performed (separate procedure) Diagnosis Code(s): --- Professional --- K64.8, Other hemorrhoids D12.7, Benign neoplasm of rectosigmoid junction D12.0, Benign neoplasm of cecum K92.1, Melena (includes Hematochezia) K57.30, Diverticulosis of large intestine without perforation or abscess without bleeding CPT copyright 2020 [employer]. All rights reserved. The codes documented in this report are preliminary and upon wort extractor reviewmay be revised to meet current compliance requirements. Dr. Nanda Serrano MD [facility] Nanda Serrano M.D. 06/13/2024 9:55:57 AM Number of Addenda: 0 Note Initiated On: 06/13/2024 8:23 AM Nanda Serrano MD ENDOSCOPY PROCEDURES Edited Result - Final from Last 3 Months or Most Recently Relevant to Health Maintenance Additional Health Concerns Infection Onset Date Last Indicated MDR gram neg/ESBL 11/19/2024 11/19/2024 Ring Surveillance: C. 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 Patient may require a screening swab. No additional isolation precautions are necessary with this flag/n.moll 12/26/20242024 Insurance [facility] Advance Directives For more information, please contact: [phone] * Full Code (Latest Code Status on File) Date Activated Date Inactivated Comments 12/24/2024 8:57 PM 12/31/2024 12:02 PM * Full Code Date Activated Date Inactivated Comments 11/19/2024 4:27 PM 11/25/2024 5:57 PM * Full Code Date Activated Date Inactivated Comments 10/15/2024 2:40 AM 10/17/2024 7:18 PM * Full Code Date Activated Date Inactivated Comments 10/07/2024 12:18 AM 10/08/2024 8:09 PM * Full Code Date Activated Date Inactivated Comments 09/04/2024 7:32 AM 09/12/2024 7:53 PM Care Teams Manager Military Relationship Specialty Start Date End Date No, Physician PCP - General 11/27/24 Madisyn Rothman MD Consulting Physician Pulmonary Disease 07/20/23 Taye Patel, TAPPER OPERATOR [address] [place] [address] [address] [place] [address] Quarter Doper 06/26/24 Mt Meza MD [address] [place] [id number] Referring Physician Surgery 08/26/24
--- OUTSIDE RECORDS SUMMARY | 2025-01-02 16:58 | XMS_ITS | Encounter Summary ---
Author Organization [facility] Healthcare Address [address] [place] [address] Care Team Providers Care Chemical Handler Name Role Phone Madisyn Rothman MD Unavailable [phone] Aura Chung RN Unavailable Taye PatelW Unavailable [phone] Kasey BRITT MD, Jaime Corona Unavailable Mt Meza MD Unavailable [phone] Kanchan Webb [employer] Primary Care Provider No, Physician Primary Care Provider [phone] Jen Vaca MA Unavailable [phone] Encounter Details Date Type Department Care Team (Late st Contact Info) Description 07/05/2024 Telephone [facility] Medical Group Family Medicine [address] [place] [address] Kanchan Webb NP [address] [place] [address] [address] [place] [address] Social History Tobacco Use Types Packs/Day Years Used Date Smoking Tobacco: Former Cigarettes 0.1 45 Smokeless Tobacco: Never Alcohol Use Standard Drinks/Week Comments Yes 0 (1 standard drink = 0.6 oz pur e alcohol) socially [facility] Utilities Answer Date Recorded In the past 12 months has th e electric, gas, oil, or water Leeo threatened to shut off services in your home? No 07/08/2024 Social Connection and Isolation Panel Answer Date Recorded In a typical week, how many times do you talk on the phone with family, friends, or neighbors? Once a week 07/08/2024 How often do you get together with friends or re latives? Once a week 07/08/2024 How often do you attend jew or jehovah's witness serv ices? Never 07/08/2024 Do you belong to any clubs o r organizations such as jew groups, unions, fraternal or athletic groups, or [...] any time in the past 12 m [facility], were you homeless or living in a assisted (including now)? Yes 07/08/2024 Personal Safety Answer Date Recorded Have you ever been in or are you currently in a harmful physical or emotional relationship or is someone making you feel afraid or unsafe? 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 Gender Identity Not on file Sexual Orientation Not on file documented as of this encounter Plan of Treatment Not on file documented as of this encounter Visit Diagnoses Not on filedocumented in this encounter Additional Health Concerns Infection Onset Date Last Indicated Resolved Time COVID: Suspected 07/05/2024 07/05/2024 07/05/2024 11:38 PM [...] documented as of this encounter Care Teams Chemical Handler Relationship Specialty Start Date End Date Kanchan Webb NP [address] [facility] [place] [address] PCP - General Family Medicine 11/25/24 11/26/24 No, Physician PCP - General 11/27/24 Madisyn Rothman MD Consulting Physician Pulmonary Disease 07/20/23 Aura Chung, RN [address] [place] [address] [address] [place] [address] Video Game Designer 06/25/24 11/17/24 Taye Patel LCSW [address] [place] [address] [address] [place] [address] Inflated Pad Buffer 06/26/24 Jaime Parks IV, MD [address] [place] [address] [id number] Consulting Physician General Surgery 08/19/24 08/19/24 Mt Meza MD [address] [place] [address] [id number] Referring Physician Surgery 08/26/24 Jen Vaca MA [address] [place] [address] [employer] Care Clinical Pharmacy Technician 12/03/24 12/03/24 documented as of this encounter
--- NOTE | 2025-01-02 18:34 | ED_ITS ---
HPI - Extremity Problem General Chief complaint: Fall <Teja Contreras MD - Last Filed: 01/02/25 20:46> Stated complaint: LLE pain <Teja Contreras MD - Last Filed: 01/02/25 20:46> Time Seen by Provider: 01/02/25 16:13 <Teja Contreras MD - Last Filed: 01/02/25 20:46> Source: patient <Teja Contreras MD - Last Filed: 01/02/25 20:46> Mode of arrival: ambulatory <Teja Contreras MD - Last Filed: 01/02/25 20:46> Limitations: no limitations <Teja Contreras MD - Last Filed: 01/02/25 20:46> History of Present Illness HPI Narrative: 54-year-old with a history of COPD, CHF, avascular necrosis of the hip presents to the ER via ambulance from [facility] with a sudden onset of pain in the left hip and knee. Patient states that she was sitting on the couch in was trying to get up felt a cracking sensation in her hip and she is now unable to bear weight. She states that she has been in [facility] for last 2 days and she has been sober for past 1 week. <Teja Contreras MD - Last Filed: 01/02/25 20:46> MD Complaint: joint paint <Teja Contreras MD - Last Filed: 01/02/25 20:46> Onset (ago): minute(s) (30) <Teja Contreras MD - Last Filed: 01/02/25 20:46> Pain Consistency: constant <Teja Contreras MD - Last Filed: 01/02/25 20:46> Location: left <Teja Contreras MD - Last Filed: 01/02/25 20:46> Quality: aching <Teja Contreras MD - Last Filed: 01/02/25 20:46> Relieving factors: nothing <Teja Contreras MD - Last Filed: 01/02/25 20:46> Exacerbating factors: weight bearing <Teja Contreras MD - Last Filed: 01/02/25 20:46> Associated symptoms: denies other symptoms <Teja Contreras MD - Last Filed: 01/02/25 20:46> Review of Systems 2 Review of Systems: All systems reviewed & are unremarkable except as noted in HPI and below <Teja Contreras MD - Last Filed: 01/02/25 20:46> Constitutional: Constitutional: Reports no additional constitutional complaints <Teja Contreras MD - Last Filed: 01/02/25 20:46> Eyes: Eyes: Reports no additional eye complaints <Teja Contreras MD - Last Filed: 01/02/25 20:46> ENT: Reports system reviewed and no additional complaints, except as documented <Teja Contreras MD - Last Filed: 01/02/25 20:46> Cardiovascular: Cardiovascular: Reports no additional cardiovascular complaints <Teja Contreras MD - Last Filed: 01/02/25 20:46> Respiratory: Respiratory: Reports no additional respiratory complaints < Teja Contreras MD - Last Filed: 01/02/25 20:46> Gastrointestinal: Gastrointestinal: Reports no additional gastrointestinal complaints <Teja Contreras MD - Last Filed: 01/02/25 20:46> Musculoskeletal: Musculoskeletal: Reports as per HPI <Teja Contreras MD - Last Filed: 01/02/25 20:46> Exam 2 Narrative: GENERAL: Well-appearing, well-nourished, and in no acute distress. HEAD: Normocephalic, atraumatic. EYES: PERRLA and EOMI. ENT: Nares clear, no rhinorrhea or epistaxis. Mucous membranes moist. NECK: Supple. CHEST: Clear to auscultation. No respiratory distress. HEART: Regular rate and rhythm. No murmur heard. Normal peripheral pulses. ABDOMEN: Soft, nontender, nondistended, normal active bowel sounds. EXTREMITIES: Examination of the left hip shows no shortening or rotation tender on palpation SKIN: Warm, dry, no rash. NEURO: No focal deficits. Alert and oriented x3. PSYCH: Normal mood and affect. <Teja Contreras MD - Last Filed: 01/02/25 20:46> Course Course Emergency Course: Notified patient about her lab work, x-ray and CT findings. I discussed with Dr. Yeung recommends transfer if pt is unable to ambulate ,or can be followed up in hte office , pt is unable to move . I discussed with [facility] Dr Yuko Escobedo will accept the pt recommended to transfer to ED , discussed with Dr. Shakila NORMAN will accept to ED <Teja Contreras MD - Last Filed: 01/02/25 20:46> Notified patient about her lab work, x-ray and CT findings. I discussed with Dr. Yeung recommends transfer if pt is unable to ambulate ,or can be followed up in hte office , pt is unable to move . I discussed with [facility] Dr Yuko Escobedo will accept the pt recommended to transfer to ED , discussed with Dr. Shakila NORMAN will accept to ED. Patient care signed over pending bed availability at [facility]. Bed has been assigned and patient transferred to [facility] ED without further issue. <Darrian Forrester MD - Last Filed: 01/03/25 05:48> Vital Signs Vital signs: Vital Signs Temperature 36.6 C 01/02/25 16:10 Pulse Rate 78 01/02/25 16:10 Respiratory Rate 17 01/02/25 16:10 Blood Pressure 119/66 01/02/25 16:10 Pulse Oximetry 96 01/02/25 16:10 Oxygen Delivery Room Air 01/02/25 16:10 Temperature 36.6 C 01/02/25 16:18 Pulse Rate 83 01/02/25 22:49 Respiratory Rate 18 01/02/25 22:49 Blood Pressure 128/81 01/02/25 22:49 Pulse Oximetry 94 01/02/25 22:49 Oxygen Delivery Room Air 01/02/25 16:10 <Teja Contreras MD - Last Filed: 01/02/25 20:46> Vital Signs Temperature 36.6 C 01/02/25 16:10 Pulse Rate 78 01/02/25 16:10 Respiratory Rate 17 01/02/25 16:10 Blood Pressure 119/66 01/02/25 16:10 Pulse Oximetry 96 01/02/25 16:10 Oxygen Delivery Room Air 01/02/25 16:10 Temperature 36.6 C 01/02/25 16:18 Pulse Rate 83 01/02/25 22:49 Respiratory Rate 18 01/02/25 22:49 Blood Pressure 128/81 01/02/25 22:49 Pulse Oximetry 94 01/02/25 22:49 Oxygen Delivery Room Air 01/02/25 16:10 <Darrian Forrester MD - Last Filed: 01/03/25 05:48> MDM - Extremity (Nontraumatic) Lab Data Result diagrams: 01/02/25 16:37 01/02/25 16:37 <Teja Contreras MD - Last Filed: 01/02/25 20:46> Labs: Lab Results 01/02/25 Range/Units 16:37 WBC 7.8 (4.5-10.0) K/mm3 RBC 3.35 L (4.2-5.4) M/mm3 Hgb 9.6 L (12.0-15.0) g/dL Hct 32.6 L (37.0-47.0) % MCV 97.3 (80-100) fl MCH 28.7 (26-34) pg MCHC 29.4 L (32-36) g/dl RDW 18.0 H (11.5-14.5) % Plt Count 281 (150-375) k/mm3 MPV 9.8 (7.4-10.4) fl Immature Gran % (Auto) 0.5 (0-0.5) % Neut % (Auto) 29.6 L (45.5-73.1) % Lymph % (Auto) 50.4 H (18.3-44.2) % [place] % (Auto) 17.9 H (2.6-8.5) % Eos % (Auto) 1.3 (0-4.4) % Baso % (Auto) 0.3 (0.2-1.2) % Lymph # (Auto) 3.95 H (0.9-3.2) K/mm3 [place] # (Auto) 1.4 H (0.1-0.6) K/mm3 Eos # (Auto) 0.1 (0-0.3) K/mm3 Baso # (Auto) 0.0 (0.0-0.1) K/mm3 Abs Immat Gran (auto) 0.04 H (0.00-0.031) K/mm3 Absolute Neuts (auto) 2.3 (1.3-6.7) K/mm3 Absolute Nucleated RBC 0.000 (0.0-0.012) K/mm3 Band Neutrophils % Not Reportable Nucleated RBC % 0.0 (0.0-0.2) % Platelet Estimate Adequate (Adequate) Hypochromasia 1+ Ovalocytes Occasional Schistocytes None seen Sodium 136 L (137-145) mmol/L Potassium 4.3 (3.4-5.0) mmol/L Chloride 100 (98-107) mmol/L Carbon Dioxide 31 H (22-30) mmol/L Anion Gap 5 (4-12) mmol/L BUN 16 (7-17) mg/dL Creatinine 0.88 (0.7-1.0) mg/dL Estim Creat Clear Calc 67 ml/min Estimated GFR > 60 (59 - ) Glucose 91 (65-110) mg/dL Calcium 8.9 (8.4-10.2) mg/dL <Teja Contreras MD - Last Filed: 01/02/25 20:46> Lab Results 01/02/25 Range/Units 16:37 WBC 7.8 (4.5-10.0) K/mm3 RBC 3.35 L (4.2-5.4) M/mm3 Hgb 9.6 L (12.0-15.0) g/dL Hct 32.6 L (37.0-47.0) % MCV 97.3 (80-100) fl MCH 28.7 (26-34) pg MCHC 29.4 L (32-36) g/dl RDW 18.0 H (11.5-14.5) % Plt Count 281 (150-375) k/mm3 MPV 9.8 (7.4-10.4) fl Immature Gran % (Auto) 0.5 (0-0.5) % Neut % (Auto) 29.6 L (45.5-73.1) % Lymph % (Auto) 50.4 H (18.3-44.2) % [place] % (Auto) 17.9 H (2.6-8.5) % Eos % (Auto) 1.3 (0-4.4) % Baso % (Auto) 0.3 (0.2-1.2) % Lymph # (Auto) 3.95 H (0.9-3.2) K/mm3 [place] # (Auto) 1.4 H (0.1-0.6) K/mm3 Eos # (Auto) 0.1 (0-0.3) K/mm3 Baso # (Auto) 0.0 (0.0-0.1) K/mm3 Abs Immat Gran (auto) 0.04 H (0.00-0.031) K/mm3 Absolute Neuts (auto) 2.3 (1.3-6.7) K/mm3 Absolute Nucleated RBC 0.000 (0.0-0.012) K/mm3 Band Neutrophils % Not Reportable Nucleated RBC % 0.0 (0.0-0.2) % Platelet Estimate Adequate (Adequate) Hypochromasia 1+ Ovalocytes Occasional Schistocytes None seen Sodium 136 L (137-145) mmol/L Potassium 4.3 (3.4-5.0) mmol/L Chloride 100 (98-107) mmol/L Carbon Dioxide 31 H (22-30) mmol/L Anion Gap 5 (4-12) mmol/L BUN 16 (7-17) mg/dL Creatinine 0.88 (0.7-1.0) mg/dL Estim Creat Clear Calc 67 ml/min Estimated GFR > 60 (59 - ) Glucose 91 (65-110) mg/dL Calcium 8.9 (8.4-10.2) mg/dL <Darrian Forrester MD - Last Filed: 01/03/25 05:48> Imaging Data Radiologist's impression: ITS Impressions Hip/Pelvis X-Ray 01/02/25 17:20 Impression: No acute fracture or malalignment. Knee X-Ray 01/02/25 17:20 Impression: No acute fracture or malalignment. Hip CT 01/02/25 18:13 IMPRESSION: There is comminuted fracture of the femoral head with collapse of the head. There is associated sclerosis. This may be sequelae of advanced avascular necrosis. There is no dislocation. Large joint effusion is noted. All CT scans at this facility are performed using low dose modulation techniques as appropriate to perform exam including the following: automated exposure control; use of iterative reconstruction technique; adjustment of the mA and/or kV according to patient size (this includes techniques or standardized protocols for targeted exams where dose is matched to indication/reason for exam). <eTja Contreras MD - Last Filed: 01/02/25 20:46> Discharge Plan Discharge Clinical Impression: Femoral neck fracture Qualifiers: Encounter type: initial encounter Fracture type: closed Laterality: left Q ualified Code(s): S72.002A - Fracture of unspecified part of neck of left femur, initial encounter for closed fracture <Teja Contreras MD - Last Filed: 01/02/25 20:46> Patient Disposition: Acute Care Hospital <Teja Contreras MD - Last Filed: 01/02/25 20:46> Condition: Stable <Teja Contreras MD - Last Filed: 01/02/25 20:46> Patient Language: Swedish <Teja Contreras MD - Last Filed: 01/02/25 20:46> Follow-up/Referrals: Jerrod,Hany [Other] <Teja Contreras MD - Last Filed: 01/02/25 20:46>
== END 2025-01-03 02:07 | disposition short-term general hospital (02) ==
PROVIDERS: Emergency Provider Family Medicine
DX: S72.052A Unspecified fracture of head of left femur, initial encounter for closed fracture (principal); J44.9 Chronic obstructive pulmonary disease, unspecified; I50.9 Heart failure, unspecified; X50.9XXA Other and unspecified overexertion or strenuous movements or postures, initial encounter
CPT/HCPCS: 36415; 73502; 73564; 73700; 80048; 85025; 99284; 99285